=== PATIENT | female | born 1980 | race Caucasian/White ===

== ENCOUNTER 2017-01-19 07:19 | Emergency (ER) | payer OTHER ==
[2017-01-19 07:25] VITALS: TEMP 97.9
[2017-01-19] MEDS ORDERED: SODIUM CHLORIDE 0.9% 1,000 ML IV STA (07:57)
--- NOTE | 2017-01-19 08:12 | ED ---
Abdominal Pain HPI - General Chief Complaint: Abdominal Pain Stated Complaint: poss appendix issue Time Seen by Provider: 01/19/17 07:57 Source: patient, RN notes reviewed Mode of arrival: ambulatory Limitations: no limitations - History of Present Illness Initial Comments: 36-year-old female presents emergency Department chief complaint of right-sided abdominal pain. Patient states pain started last night and has not improved today. Patient states that it's from her right lower to right upper region. Patient had a prior cholecystectomy approximately 3-4 years ago. Patient denies any known fever and denies any chills. Patient states she has some nausea but denies vomiting, diarrhea or constipation. She states her blood sugars have been running within normal range and states that she is on insulin pump. Patient has no chest or shortness of breath denies any dysuria or hematuria. Denies any chance . - Related Data Home Medications Medication Instructions Recorded Confirmed Insulin Glulisine (For Pump) 0.01 units SQ-PUMP CONTINUOUS 01/19/17 01/19/17 [Apidra (For Pump)] Multivitamins, Thera [Multivitamin 1 tab PO DAILY 01/19/17 01/19/17 (formulary)] Allergies Allergy/AdvReac Type Severity Reaction Status Date / Time Sulfa (Sulfonamide Allergy Rash/Hives Verified 01/19/17 07:39 Antibiotics) Review of Systems ROS Statement: Those systems with pertinent positive or pertinent negative responses have been documented in the HPI. ROS Other: All systems not noted in ROS Statement are negative. Past Medical History Past Medical History: Diabetes Mellitus History of Any Multi-Drug Resistant Organisms: MRSA Date of last positivie culture/infection: 2012 MDRO Source:: arm pit Past Surgical History: Cholecystectomy Additional Past Surgical History / Comment(s): tumor removal from left neck, left breast Past Psychological History: No Psychological Hx Reported Smoking Status: Current some day smoker Past Alcohol Use History: Occasional Past Drug Use History: None Reported General Exam Limitations: no limitations General appearance: alert, in no apparent distress Respiratory exam: Present: normal lung sounds bilaterally. Absent: respiratory distress, wheezes, rales, rhonchi, stridor Cardiovascular Exam: Present: regular rate, normal rhythm, normal heart sounds. Absent: systolic murmur, diastolic murmur, rubs, gallop, clicks GI/Abdominal exam: Present: soft, tenderness (Moderate right-sided abdominal tenderness upper and lower with mild suprapubic tenderness), normal bowel sounds. Absent: distended, guarding, rebound, rigid Back exam: Absent: CVA tenderness (R), CVA tenderness (L) Neurological exam: Present: alert, oriented X3, CN II-XII intact Skin exam: Present: warm, dry, intact, normal color. Absent: rash Course Vital Signs 01/19/17 07:20 Temperature 97.9 F Pulse Rate 78 Respiratory 18 Rate Blood Pressure 140/71 O2 Sat by Pulse 99 Oximetry Medical Decision Making - Medical Decision Making 36-year-old female presents emergency Department for abdominal pain. Patient lab work within normal limits. Patient does have evidence of recent rupture or abscess along with hepatic hemangiomas. Patient will be discharged at this time. Patient will follow-up with primary care physician for hepatic MRI as suggested by radiologist. Return parameters were discussed. - Lab Data Result diagrams: 01/19/17 08:10 01/19/17 08:10 Lab Results 01/19/17 01/19/17 01/19/17 Range/Units 08:10 08:10 08:10 WBC 8.3 (3.8-10.6) k/uL RBC 4.83 (3.80-5.40) m/uL Hgb 15.1 (11.4-16.0) gm/dL Hct 43.0 (34.0-46.0) % MCV 88.9 (80.0-100.0) fL MCH 31.2 (25.0-35.0) pg MCHC 35.1 (31.0-37.0) g/dL RDW 12.6 (11.5-15.5) % Plt Count 233 (150-450) k/uL Neutrophils % 65 % Lymphocytes % 21 % Monocytes % 6 % Eosinophils % 5 % Basophils % 1 % Neutrophils # 5.4 (1.3-7.7) k/uL Lymphocytes # 1.8 (1.0-4.8) k/uL Monocytes # 0.5 (0-1.0) k/uL Eosinophils # 0.4 (0-0.7) k/uL Basophils # 0.0 (0-0.2) k/uL Sodium 138 (137-145) mmol/L Potassium 4.0 (3.5-5.1) mmol/L Chloride 104 (98-107) mmol/L Carbon Dioxide 26 (22-30) mmol/L Anion Gap 8 mmol/L BUN 12 (7-17) mg/dL Creatinine 0.67 (0.52-1.04) mg/dL Est GFR (MDRD) Af Amer >60 (>60 ml/min/1.73 sqM) Est GFR (MDRD) Non-Af >60 (>60 ml/min/1.73 sqM) Glucose 281 H (74-99) mg/dL Calcium 9.4 (8.4-10.2) mg/dL Total Bilirubin 0.8 (0.2-1.3) mg/dL AST 16 (14-36) U/L ALT 21 (9-52) U/L Alkaline Phosphatase 67 (38-126) U/L Total Protein 7.1 (6.3-8.2) g/dL Albumin 4.1 (3.5-5.0) g/dL Amylase 44 (30-110) U/L Lipase 55 (23-300) U/L Urine Color Urine Appearance (Clear) Urine pH (5.0-8.0) Ur Specific Burnham (1.001-1.035) Urine Protein (Negative) Urine Glucose (UA) (Negative) Urine Ketones (Negative) Urine Blood (Negative) Urine Nitrite (Negative) Urine Bilirubin (Negative) Urine Urobilinogen (<2.0) mg/dL Ur Leukocyte Esterase (Negative) Urine WBC (0-5) /hpf Ur Squamous Epith Cells (0-4) /hpf Urine Mucus (None) /hpf Urine HCG, Qual Not Detected (Not Detectd) 01/19/17 Range/Units 08:10 WBC (3.8-10.6) k/uL RBC (3.80-5.40) m/uL Hgb (11.4-16.0) gm/dL Hct (34.0-46.0) % MCV (80.0-100.0) fL MCH (25.0-35.0) pg MCHC (31.0-37.0) g/dL RDW (11.5-15.5) % Plt Count (150-450) k/uL Neutrophils % % Lymphocytes % % Monocytes % % Eosinophils % % Basophils % % Neutrophils # (1.3-7.7) k/uL Lymphocytes # (1.0-4.8) k/uL Monocytes # (0-1.0) k/uL Eosinophils # (0-0.7) k/uL Basophils # (0-0.2) k/uL Sodium (137-145) mmol/L Potassium (3.5-5.1) mmol/L Chloride (98-107) mmol/L Carbon Dioxide (22-30) mmol/L Anion Gap mmol/L BUN (7-17) mg/dL Creatinine (0.52-1.04) mg/dL Est GFR (MDRD) Af Amer (>60 ml/min/1.73 sqM) Est GFR (MDRD) Non-Af (>60 ml/min/1.73 sqM) Glucose (74-99) mg/dL Calcium (8.4-10.2) mg/dL Total Bilirubin (0.2-1.3) mg/dL AST (14-36) U/L ALT (9-52) U/L Alkaline Phosphatase (38-126) U/L Total Protein (6.3-8.2) g/dL Albumin (3.5-5.0) g/dL Amylase (30-110) U/L Lipase (23-300) U/L Urine Color Yellow Urine Appearance Clear (Clear) Urine pH 5.5 (5.0-8.0) Ur Specific Burnham 1.018 (1.001-1.035) Urine Protein Negative (Negative) Urine Glucose (UA) 4+ H (Negative) Urine Ketones Trace H (Negative) Urine Blood Negative (Negative) Urine Nitrite Negative (Negative) Urine Bilirubin Negative (Negative) Urine Urobilinogen <2.0 (<2.0) mg/dL Ur Leukocyte Esterase Small H (Negative) Urine WBC 2 (0-5) /hpf Ur Squamous Epith Cells 6 H (0-4) /hpf Urine Mucus Rare H (None) /hpf Urine HCG, Qual (Not Detectd) Disposition Clinical Impression: Abdominal pain, Ruptured ovarian cyst, Hepatic cyst Disposition: HOME SELF-CARE Condition: Stable Instructions: Ovarian Cyst (ED) Additional Instructions: Please return to the Emergency Department if symptoms worsen or any other concerns. Referrals: Cheko Nino Jr, [Primary Care Provider] - 1-2 days Time of Disposition: 09:59
[2017-01-19 08:26] LABS: Basophils % (A) 1 %; CH 30.8; CHCM 34.7; Eosinophils # (A) 0.4 k/uL (0-0.7); Eosinophils % (A) 5 %; HDW 2.23; HGB 15.1 gm/dL (11.4-16.0); Luc # (Auto) 0.18; Luc % (Auto) 2; Lymphocytes # (A) 1.8 k/uL (1.0-4.8); Lymphocytes % (A) 21 %; MCH 31.2 pg (25.0-35.0); MCHC 35.1 g/dL (31.0-37.0); MCV 88.9 fL (80.0-100.0); Mean Platelet Volume 8.1; Monocytes # (A) 0.5 k/uL (0-1.0); Monocytes % (A) 6 %; Neutrophils # (A) 5.4 k/uL (1.3-7.7); Neutrophils % (A) 65 %; RBC 4.83 m/uL (3.80-5.40); RDW 12.6 % (11.5-15.5); WBC 8.3 k/uL (3.8-10.6); WBC (Perox) 8.55
[2017-01-19 08:40] LABS: Appearance,Urine Clear (Clear); Bilirubin,Urine Negative (Negative); Glucose,Urine (UA) 4+ (Negative); Ketones,Urine Trace (Negative); Leukocyte Esterase,Urine Small (Negative); Mucus,Urine Rare /hpf; Nitrite,Urine Negative (Negative); PH, Urine 5.5 (5.0-8.0); Particle Count 2158; Protein,Urine Negative (Negative); Specific Gravity,Urine 1.018 (1.001-1.035); Squamous Epithelial Cell,Urine 6 /hpf (0-4); UA Billing (MACRO vs. MICRO) MICRO; Urobilinogen,Urine <2.0 mg/dL (<2.0); WBC,Urine 2 /hpf (0-5)
[2017-01-19 08:52] LABS: ALT 21 U/L (9-52); AST 16 U/L (14-36); Alkaline Phosphatase 67 U/L (38-126); Amylase 44 U/L (30-110); Anion Gap 8 mmol/L; Blood Urea Nitrogen 12 mg/dL (7-17); Calcium 9.4 mg/dL (8.4-10.2); Carbon Dioxide 26 mmol/L (22-30); Chloride 104 mmol/L (98-107); Glucose 281 mg/dL (74-99); Non-African American GFR(MDRD) >60 (>60 ml/min/1.73 sqM); Sodium 138 mmol/L (137-145); Total Bilirubin 0.8 mg/dL (0.2-1.3); Total Protein 7.1 g/dL (6.3-8.2)
--- NOTE | 2017-01-19 09:00 | XR ---
EXAMINATION TYPE: XR KUB DATE OF EXAM: 01/19/2017 CLINICAL HISTORY: Right-sided abdominal pain. TECHNIQUE: 2 upright KUB images of the abdomen are obtained COMPARISON: Abdominal x-ray September 02, 2013. FINDINGS: Scattered gas is seen in non-distended small bowel loops. Gas and fecal material is seen in non-distended colon. Cholecystectomy clips are redemonstrated. 2 round densities right upper pelvi s are redemonstrated may reflect benign bone islands localized to the iliac bone. No pneumoperitoneum is present. The lung bases are clear. IMPRESSION: Overall nonobstructive bowel gas pattern. No significant change from prior.
[2017-01-19] MEDS ORDERED: RX INFO: IV CONTRAST WAS GIVEN 1 EACH MISC MISCELLANE PRN (09:08)
--- NOTE | 2017-01-19 09:55 | CT ---
EXAMINATION TYPE: CT abdomen pelvis w con DATE OF EXAM: 01/19/2017 COMPARISON: Plain film same date HISTORY: Patient complains of right flank pain and nausea. CT DLP: 1212 mGycm Automated exposure control for dose reduction was used. TECHNIQUE: Helical acquisition of images from the lung bases through the pelvis have been completed. CONTRAST: Performed without Oral Contrast and with IV Contrast, patient injected with 100 mL of Omnipaque 300. FINDINGS: LUNG BASES: Dependent atelectatic changes are present. There is no pleural or pericardial effusion. AORTA: No significant abnormality is appreciated. LIVER/GB: There is a hypodensity measuring 1.5 cm within the right lobe of the liver on axial image 1 5, there may be some nodular enhancement on delayed images. Within the more inferior right lobe there is a dense focus measuring approximately 14 mm on axial image 27 which is not as well seen on delaye d images. The liver shows low attenuation. The liver is enlarged. Patient is post cholecystectomy. PANCREAS: No significant abnormality is seen. SPLEEN: No significant abnormality is seen. ADRENALS: The left adrenal gland shows a low dense nodule measuring approximately 15 mm in size. Righ t adrenal gland is unremarkable. KIDNEYS: There is a large 6 focus at the lower pole measuring approximately 6.7 cm. Right kidney some what malrotated. No hydronephrosis bilaterally. REPRODUCTIVE ORGANS: There is likely been involution of a follicle in the right ovary, enhancement is noted suggesting a ruptured follicle, there is some free fluid in the cul-de-sac. BOWEL: No significant abnormality is seen. Appendix is normal. FREE AIR: No Free Air visible. ASCITES: None visible. PELVIC ADENOPATHY: None visualized. RETROPERITONEAL ADENOPATHY: No Retroperitoneal Adenopathy visible. URINARY BLADDER: No significant abnormality is seen. OSSEOUS STRUCTURES: No significant abnormality is seen. IMPRESSION: RECENTLY RUPTURED OVARIAN CYST IS SUSPECTED. POSTOP CHANGES. INDETERMINATE LESIONS WITHIN THE LIVER M AY REPRESENT HEMANGIOMAS, ABDOMINAL MRI MAY BE OF BENEFIT TO ASSESS LIVER LESIONS WELL LEFT ADR ENAL MASS WHICH MAY REPRESENT ADENOMA. Possible fatty infiltration of the liver, hepatomegaly.
[2017-01-19 10:12] VITALS: BP 121/71; PULSE 60; RESP 16
== END 2017-01-19 10:57 | disposition home or self-care (01) ==
LOC: EC 07:19
DX: N83.201 Unspecified ovarian cyst, right side (principal); E11.9 Type 2 diabetes mellitus without complications; F17.200 Nicotine dependence, unspecified, uncomplicated; Z90.49 Acquired absence of other specified parts of digestive tract; Z88.2 Allergy status to sulfonamides; Z79.4 Long term (current) use of insulin; Z79.899 Other long term (current) drug therapy
CPT/HCPCS: 99284; 96360; 36415; 80053; 82150; 83690; 85025; 81001; 81025; 74000; 74177; Q9967

== ENCOUNTER → 2017-02-06 | Outpatient (CLI) | payer OTHER ==
--- NOTE | 2017-02-06 09:53 | MR ---
EXAMINATION TYPE: MR abdomen wo/w con DATE OF EXAM: 02/06/2017 COMPARISON: CT abdomen and pelvis January 19, 2017 HISTORY: Right flank pain and nausea before CT done, Abn CT in pacs with hepatomegaly and adrenal nod ule per order. CONTRAST: Standard multiplanar, multisequence MRI departmental protocol utilizing 16 mL intravenous MultiHance gadolinium contrast. FINDINGS: LIVER: Liver is felt normal in size to me. Corresponding to lesion of concern on CT in the right hepa tic lobe there is round 1.1 cm lesion of T1 hypointensity and T2 hyperintensity that shows some perip heral nodular enhancement with progressive centripetal filling, imaging characteristics are consisten t with hemangioma. Remainder of liver shows no additional solid or cystic mass. No suspicious or intr ahepatic or extrahepatic ductal dilatation is seen. Gallbladder is surgically absent. ADRENALS: Corresponding to CT there is 1.6 x 1.1 cm left adrenal nodule or mass that shows signal inder pout on in and out of phase image 76 consistent with benign lipid rich adenoma. Right adrenal gland i s normal in size. OTHER: Lung bases are grossly clear, there is no pleural or pericardial effusion seen. There is roug hly 8 cm simple appearing exophytic cyst lower pole level right kidney redemonstrated along posterior aspect. The pancreas and spleen are normal in size and appear grossly unremarkable. There is no susp icious small or large bowel dilatation. There is no concerning abdominal fluid collection. There is n o suspicious abdominal adenopathy. Visualized osseous structures are intact. A few small scattered os seous hemangiomas are noted. IMPRESSION: 1. The 1.6 cm left adrenal mass has MRI imaging characteristics consistent with benign lipid rich elisabeth noma. 2. The right liver lesion measures approximately 1.1 cm on MRI and has MRI imaging characteristics co nsistent with benign hemangioma.
== END | disposition home or self-care (01) ==
LOC: RADMRIMAIN 08:09
PROVIDERS: ATTEND Nurse Practitioner Women's Health
DX: E27.8 Other specified disorders of adrenal gland (principal); R16.0 Hepatomegaly, not elsewhere classified; K76.9 Liver disease, unspecified
CPT/HCPCS: 74183; A9577

== ENCOUNTER 2017-04-22 11:40 | Emergency (ER) | payer BC, OTHER ==
[2017-04-22 11:50] VITALS: TEMP 97.8
[2017-04-22] MEDS ORDERED: RX INFO: IV CONTRAST WAS GIVEN 1 EACH MISC MISCELLANE PRN (12:09)
[2017-04-22] MEDS ORDERED: CLINDAMYCIN 600 MG in DEXTROSE 5% IN WATER 50 ML IVPB STA ×2 (12:10)
[2017-04-22 12:48] LABS: Basophils # (A) 0.1 k/uL (0-0.2); Basophils % (A) 1 %; CH 31.7; CHCM 34.9; Eosinophils # (A) 0.3 k/uL (0-0.7); Eosinophils % (A) 3 %; HDW 2.21; HGB 14.8 gm/dL (11.4-16.0); Luc # (Auto) 0.16; Luc % (Auto) 2; Lymphocytes # (A) 1.9 k/uL (1.0-4.8); Lymphocytes % (A) 20 %; MCH 30.8 pg (25.0-35.0); MCHC 33.7 g/dL (31.0-37.0); MCV 91.3 fL (80.0-100.0); Mean Platelet Volume 8.6; Monocytes # (A) 0.5 k/uL (0-1.0); Monocytes % (A) 6 %; Neutrophils # (A) 6.5 k/uL (1.3-7.7); Neutrophils % (A) 69 %; RBC 4.82 m/uL (3.80-5.40); RDW 13.2 % (11.5-15.5); WBC 9.4 k/uL (3.8-10.6); WBC (Perox) 9.04
--- NOTE | 2017-04-22 12:52 | ED ---
Skin/Abscess/FB HPI - General Chief complaint: Skin/Abscess/Foreign Body Stated complaint: POSS INFECTION ON NOSE Time Seen by Provider: 04/22/17 11:55 Source: patient, RN notes reviewed, old records reviewed Mode of arrival: ambulatory Limitations: no limitations - History of Present Illness Initial comments: Is a 36-year-old type 1 diabetic presents emergency Department with nasal septum pain. Patient reports on Thursday she had a pimple on the tip of herpatient reports she was able to squeeze a lot of pus out of it. She was seen [facility] and was placed on Keflex. Patient put she's taken 3 doses of it. Patient reports that now she has some swelling and irritation over her right cheek and right upper lip. Patient reports that she's had fevers but has not had any fevers since last night. Patient states she's been taking Motrin for pain. - Related Data Home Medications Medication Instructions Recorded Confirmed Insulin Glulisine (For Pump) 0.01 units SQ-PUMP CONTINUOUS 01/19/17 04/22/17 [Apidra (For Pump)] Multivitamins, Thera [Multivitamin 1 tab PO DAILY 01/19/17 04/22/17 (formulary)] Cephalexin [Keflex] 500 mg PO TID 04/22/17 04/22/17 Ibuprofen [Motrin] 800 mg PO Q8H PRN 04/22/17 04/22/17 Previous Rx's Medication Instructions Recorded Clindamycin [Cleocin] 300 mg PO QID 10 Days 04/22/17 Allergies Allergy/AdvReac Type Severity Reaction Status Date / Time Sulfa (Sulfonamide Allergy Rash/Hives Verified 04/22/17 12:13 Antibiotics) Review of Systems ROS Statement: Those systems with pertinent positive or pertinent negative responses have been documented in the HPI. ROS Other: All systems not noted in ROS Statement are negative. Past Medical History Past Medical History: Diabetes Mellitus Additional Past Medical History / Comment(s): mass on kidney, liver, and adrenal gland = all benign, ovarian cyst History of Any Multi-Drug Resistant Organisms: MRSA Date of last positivie culture/infection: 2012 MDRO Source:: arm pit Past Surgical History: Cholecystectomy Additional Past Surgical History / Comment(s): tumor removal from left neck, left breast lumpectomy Past Psychological History: No Psychological Hx Reported Smoking Status: Current every day smoker Past Alcohol Use History: Occasional Past Drug Use History: None Reported General Exam - General Exam Comments Initial Comments: 36-year-old female. No acute distress. Limitations: no limitations General appearance: alert, in no apparent distress Head exam: Present: atraumatic, normocephalic, normal inspection Eye exam: Present: normal appearance, PERRL, EOMI. Absent: scleral icterus, conjunctival injection, periorbital swelling ENT exam: Present: mucous membranes moist, other (She has erythema and fluctuance over the nasal septum. Evidence of a scab from where she had it open and draining already.). Absent: normal exam Neck exam: Present: normal inspection. Absent: tenderness, meningismus, lymphadenopathy Respiratory exam: Present: normal lung sounds bilaterally. Absent: respiratory distress, wheezes, rales, rhonchi, stridor Cardiovascular Exam: Present: regular rate, normal rhythm, normal heart sounds. Absent: systolic murmur, diastolic murmur, rubs, gallop, clicks GI/Abdominal exam: Present: soft, normal bowel sounds. Absent: distended, tenderness, guarding, rebound, rigid Extremities exam: Present: normal inspection, full ROM, normal capillary refill. Absent: tenderness, pedal edema, joint swelling, calf tenderness Back exam: Present: normal inspection Neurological exam: Present: alert, oriented X3, CN II-XII intact Course Vital Signs 04/22/17 04/22/17 04/22/17 11:45 13:09 14:36 Temperature 97.8 F Pulse Rate 78 61 64 Respiratory 18 18 18 Rate Blood Pressure 134/86 128/79 124/75 O2 Sat by Pulse 99 97 99 Oximetry Medical Decision Making - Medical Decision Making 36-year-old female with a history of type 1 diabetes presents emergency Department with 3 days of increased nasal septum pain. Patient was started on Keflex and did have some drainage yesterday. She reports that her chest But now her swelling and pain is continue to got worse. Patient's lab work was reviewed. No evidence of leukocytosis. She did have elevated blood sugar she ingested this appropriately on her insulin pump. Patient was given IV Toradol. CT facial bones was reviewed. Evidence of a 1.4 cm abscess within the right nasal abdomen. Discussed case with Dr. Shelton. He also examined the patient. We 're currently contacting Dr. Turner for further evaluation. Dr. Turner reports that he will see the patient at 5:00 this afternoon. Patient will be discharged with a prescription for clindamycin and instructed to go there at 5:00. Patient's history plan will comply. - Lab Data Result diagrams: 04/22/17 12:30 04/22/17 12:30 Lab Results 04/22/17 04/22/17 Range/Units 12:30 12:30 WBC 9.4 (3.8-10.6) k/uL RBC 4.82 (3.80-5.40) m/uL Hgb 14.8 (11.4-16.0) gm/dL Hct 44.0 (34.0-46.0) % MCV 91.3 (80.0-100.0) fL MCH 30.8 (25.0-35.0) pg MCHC 33.7 (31.0-37.0) g/dL RDW 13.2 (11.5-15.5) % Plt Count 264 (150-450) k/uL Neutrophils % 69 % Lymphocytes % 20 % Monocytes % 6 % Eosinophils % 3 % Basophils % 1 % Neutrophils # 6.5 (1.3-7.7) k/uL Lymphocytes # 1.9 (1.0-4.8) k/uL Monocytes # 0.5 (0-1.0) k/uL Eosinophils # 0.3 (0-0.7) k/uL Basophils # 0.1 (0-0.2) k/uL Sodium 136 L (137-145) mmol/L Potassium 4.2 (3.5-5.1) mmol/L Chloride 105 (98-107) mmol/L Carbon Dioxide 23 (22-30) mmol/L Anion Gap 8 mmol/L BUN 10 (7-17) mg/dL Creatinine 0.62 (0.52-1.04) mg/dL Est GFR (MDRD) Af Amer >60 (>60 ml/min/1.73 sqM) Est GFR (MDRD) Non-Af >60 (>60 ml/min/1.73 sqM) Glucose 220 H (74-99) mg/dL Calcium 9.1 (8.4-10.2) mg/dL - Radiology Data Radiology results: report reviewed Sinuses are clear osteopenia no complexes pain bilaterally. Local phlegmon or abscess within the subcu tissues inferior to the nostrils. Disposition Clinical Impression: Nasal septal abscess Disposition: HOME SELF-CARE Condition: Good Instructions: Abscess (ED) Additional Instructions: Patient advised to follow-up with Dr. Turner had an appointment at 5:00 today. Take antibiotics as prescribed. Do not miss your appointment with Dr. Turner. Prescriptions: Clindamycin [Cleocin] 300 mg PO QID 10 Days Referrals: Cheko Nino Jr, DO [Primary Care Provider] - 1-2 days Time of Disposition: 15:02
[2017-04-22 12:54] LABS: Anion Gap 8 mmol/L; Blood Urea Nitrogen 10 mg/dL (7-17); Calcium 9.1 mg/dL (8.4-10.2); Carbon Dioxide 23 mmol/L (22-30); Chloride 105 mmol/L (98-107); Glucose 220 mg/dL (74-99); Non-African American GFR(MDRD) >60 (>60 ml/min/1.73 sqM); Potassium 4.2 mmol/L (3.5-5.1); Sodium 136 mmol/L (137-145)
--- NOTE | 2017-04-22 13:50 | CT ---
EXAMINATION TYPE: CT facial bones w con DATE OF EXAM: 04/22/2017 COMPARISON: NONE HISTORY: Possible infection of nose CT DLP: 461.6 mGycm Automated exposure control for dose reduction was used. CONTRAST: CT scan of the facial bones is performed with IV Contrast, patient injected with 100 mL of Omnipaque 300. TECHNIQUE: CT scan of the sinuses is performed without contrast, axial images are obtained, coronal r eformatted images are also reviewed. FINDINGS: The paranasal sinuses including the frontal, ethmoid, sphenoid, and maxillary sinuses bila terally are well-aerated without abnormal opacification. The ostiomeatal complex is patent bilateral ly on the coronal images. Visualized portion of mastoid air laura bullosa present on the right. Cells show no abnormal opacifi cation. The globes are intact bilaterally. At the level of patient's symptomatology there is focal low attenuation present compatible with local ized abscess or phlegmon measuring approximately 1.4 cm x 4 mm. There is local soft tissue swelling. IMPRESSION: The sinuses are clear and the ostiomeatal complex is patent bilaterally. Local phlegmon or abscess within the subcutaneous tissues inferior to the nostrils.
[2017-04-22] MEDS ORDERED: KETOROLAC 30 MG/ML 1 ML VIAL IVP STA (14:11)
[2017-04-22 15:19] VITALS: BP 128/82; PULSE 75; RESP 16
== END 2017-04-22 15:19 | disposition home or self-care (01) ==
LOC: EC 11:40
DX: J34.0 Abscess, furuncle and carbuncle of nose (principal); E11.9 Type 2 diabetes mellitus without complications; F17.200 Nicotine dependence, unspecified, uncomplicated; Z86.14 Personal history of Methicillin resistant Staphylococcus aureus infection; Z79.4 Long term (current) use of insulin; Z79.899 Other long term (current) drug therapy; Z88.2 Allergy status to sulfonamides
CPT/HCPCS: 99284; 96365; 96375; 36415; 80048; 85025; 70487; J1885; Q9967; 96374

== ENCOUNTER 2017-11-26 07:42 | Emergency (ER) | payer BC, OTHER ==
[2017-11-26 07:50] VITALS: RESP 20; TEMP 98
--- NOTE | 2017-11-26 08:34 | ED ---
General Adult HPI - General Chief complaint: Skin/Abscess/Foreign Body Stated complaint: poss MRSA on head Time Seen by Provider: 11/26/17 08:22 Source: patient, RN notes reviewed Mode of arrival: ambulatory Limitations: no limitations - History of Present Illness Initial comments: Patient 37-year-old female presenting to the emergency room today with chief complaint of abscess to the left side of the scalp. Patient states this started 4 days ago. States come or tender and painful. Patient denies any drainage. Does admit to history of MRSA. She woke up with another spot to left side of her chin. Patient denies any recent fever, chills, shortness of breath, chest pain, back pain, abdominal pain, nausea or vomiting, numbness or tingling, dysuria or hematuria, constipation or diarrhea, headaches or visual changes, or any other complaints. - Related Data Home Medications Medication Instructions Recorded Confirmed Insulin Glulisine (For Pump) 0.01 units SQ-PUMP CONTINUOUS 01/19/17 11/26/17 [Apidra (For Pump)] Multivitamins, Thera [Multivitamin 1 tab PO DAILY 01/19/17 11/26/17 (formulary)] L.acidoph,Paracasei, B.lactis 1 cap PO DAILY 11/26/17 11/26/17 [Probiotic] Previous Rx's Medication Instructions Recorded Clindamycin HCl [Cleocin] 300 mg PO Q6HR 10 Days cap 11/26/17 Mupirocin 2% Oint [Bactroban Oint] 1 applic TOPICAL TID #1 gm 11/26/17 Allergies Allergy/AdvReac Type Severity Reaction Status Date / Time doxycycline Allergy Unknown Verified 11/26/17 08:03 Sulfa (Sulfonamide Allergy Rash/Hives Verified 11/26/17 08:03 Antibiotics) Review of Systems ROS Statement: Those systems with pertinent positive or pertinent negative responses have been documented in the HPI. ROS Other: All systems not noted in ROS Statement are negative. Past Medical History Past Medical History: Diabetes Mellitus Additional Past Medical History / Comment(s): mass on kidney, liver, and adrenal gland = all benign, ovarian cyst History of Any Multi-Drug Resistant Organisms: MRSA Date of last positivie culture/infection: 08/14/17 MDRO Source:: face Past Surgical History: Cholecystectomy Additional Past Surgical History / Comment(s): tumor removal from left neck, left breast lumpectomy Past Anesthesia/Blood Transfusion Reactions: No Reported Reaction Past Psychological History: No Psychological Hx Reported Smoking Status: Current every day smoker Past Alcohol Use History: Occasional Past Drug Use History: None Reported - Past Family History Father Family Medical History: Cancer Additional Family Medical History / Comment(s): colon cancer Mother Family Medical History: No Reported History General Exam - General Exam Comments Initial Comments: General: The patient is awake and alert, in no distress, and does not appear acutely ill. Eye: Pupils are equal, round and reactive to light, extra-ocular movements are intact. No nystagmus. There is normal conjunctiva bilaterally. No signs of icterus. Ears, nose, mouth and throat: There are moist mucous membranes and no oral lesions. Neck: The neck is supple, there is no tenderness or JVD. Musculoskeletal: Normal ROM, no tenderness. Strength 5/5. Sensation intact. Pulses equal bilaterally 2+. Neurological: A&O x 3. CN II-XII intact, There are no obvious motor or sensory deficits. Coordination appears grossly intact. Speech is normal. Skin: Patient does have small abscess to the left side of the scalp parietal area. There is an ulcerated area centrally. No fluctuant area. Measures approximately centimeter across. There is redness of left-sided chin no signs of abscess formation at this time. Psychiatric: Cooperative, appropriate mood & affect, normal judgment. Limitations: no limitations Course Vital Signs 11/26/17 07:49 Temperature 98.0 F Pulse Rate 89 Respiratory 20 Rate Blood Pressure 136/80 O2 Sat by Pulse 99 Oximetry Medical Decision Making - Medical Decision Making Patient has history of MRSA will be started on clindamycin due to ALLERGIES. Advised use warm compresses to the affected area along with a topical antibiotic. Disposition Clinical Impression: Abscess Disposition: HOME SELF-CARE Condition: Good Instructions: Abscess (ED) Additional Instructions: Please use medication as discussed. Please follow-up with family doctor in the next 2 days of symptoms have not improved. Please return to emergency room if the symptoms increase or worsen or for any other concerns. Prescriptions: Clindamycin HCl [Cleocin] 300 mg PO Q6HR 10 Days cap Mupirocin 2% Oint [Bactroban Oint] 1 applic TOPICAL TID #1 gm Referrals: Cheko Nino Jr, [Primary Care Provider] - 1-2 days Time of Disposition: 08:33
[2017-11-26 08:45] VITALS: BP 122/78; PULSE 78
== END 2017-11-26 08:45 | disposition home or self-care (01) ==
LOC: EC 07:42
DX: L02.811 Cutaneous abscess of head [any part, except face] (principal); E11.9 Type 2 diabetes mellitus without complications; F17.200 Nicotine dependence, unspecified, uncomplicated; Z86.14 Personal history of Methicillin resistant Staphylococcus aureus infection; Z79.4 Long term (current) use of insulin; Z88.1 Allergy status to other antibiotic agents; Z88.2 Allergy status to sulfonamides
CPT/HCPCS: 99283

== ENCOUNTER → 2017-12-09 | Outpatient (CLI) | payer OTHER ==
--- NOTE | 2017-12-09 12:28 | MM ---
Reason for exam: clinical finding. Last mammogram was performed 7 years and 10 months ago. History: Benign US left guided VAD of the left breast, June 07, 2009. Excisional biopsy of the left breast, March 2009. Taking hormonal contraceptives for 12 years beginning at age 16. Physical Findings: Nurse Summary: 1cm nodule in the left breast at 1 o'clock (nurse logan). MG Diagnostic Mammo w CAD BERTHA Bilateral CC and MLO view(s) were taken. Prior study comparison: February 19, 2010, bilateral diagnostic digital mammog. December 07, 2009, left breast digital mammogram. The breast tissue is extremely dense which could obscure a lesion on mammography. Previous mammotome biopsy in the left breast. These results were verbally communicated with the patient and result sheet given to the patient on 12/09/17. ASSESSMENT: Incomplete: need additional imaging evaluation, BI-RAD 0 RECOMMENDATION: Ultrasound of the left breast.
--- NOTE | 2017-12-09 12:30 | USB ---
Reason for exam: additional evaluation requested from abnormal screening. History: Benign US left guided VAD of the left breast, June 07, 2009. Excisional biopsy of the left breast, March 2009. Taking hormonal contraceptives for 12 years beginning at age 16. US Breast Limited LT Left breast ultrasound demonstrates a 0.6 x 0.5 x 0.4cm solid lesion at 1 o'clock, may be secondary to scar from previous biopsy. These results were verbally communicated with the patient and result sheet given to the patient on 12/09/17. ASSESSMENT: Incomplete: need additional imaging evaluation, BI-RAD 0 RECOMMENDATION: Breast MRI of both breasts.
== END | disposition home or self-care (01) ==
LOC: RADMAMWWP 09:25
PROVIDERS: ATTEND Family Medicine
DX: N63.20 Unspecified lump in the left breast, unspecified quadrant (principal); R92.8 Other abnormal and inconclusive findings on diagnostic imaging of breast
CPT/HCPCS: 77066

== ENCOUNTER 2018-03-23 07:54 | Emergency (ER) | payer OTHER ==
[2018-03-23] MEDS ORDERED: SODIUM CHLORIDE 0.9% 1,000 ML IV STA (08:12)
[2018-03-23] MEDS ORDERED: IPRATROPIUM-ALBUTEROL 3 ML NEB INHALATION STA ×2 (08:12→10:31)
--- NOTE | 2018-03-23 08:21 | ED ---
URI HPI - General Chief Complaint: Upper Respiratory Infection Stated Complaint: Cough/sob Time Seen by Provider: 03/23/18 08:00 Source: patient, RN notes reviewed Mode of arrival: ambulatory Limitations: no limitations - History of Present Illness Initial Comments: This is a 37-year-old female history of bronchitis and pneumonia who states she had the onset of a upper respiratory infection last Thursday which is 4 days ago states it has not progressed into a cough with shortness of breath exertional dyspnea. She denies any chest pain she states she had congested sinuses and some rhinorrhea no sore throat or earaches. No chest pain reported. No overt phlegm which she coughs. He does admit that she is a smoker but does not smoke very much. No other modifying factors at this time she does deny any chance of . MD Complaint: cough, nasal congestion, other - Related Data Home Medications Medication Instructions Recorded Confirmed Multivitamins, Thera [Multivitamin 1 tab PO DAILY 01/19/17 03/23/18 (formulary)] Insulin Glargine [Lantus] 28 unit SQ DAILY 03/23/18 03/23/18 Insulin Glulisine [Apidra] See Protocol SQ ACHS PRN 03/23/18 03/23/18 Previous Rx's Medication Instructions Recorded Albuterol Inhaler [Ventolin Hfa 2 puff INHALATION Q6HR PRN #1 03/23/18 Inhaler] inhaler predniSONE 20 mg PO BID #10 tab 03/23/18 Allergies Allergy/AdvReac Type Severity Reaction Status Date / Time doxycycline Allergy Rash/Hives Verified 03/23/18 08:45 Sulfa (Sulfonamide Allergy Rash/Hives Verified 03/23/18 08:45 Antibiotics) Review of Systems ROS Statement: Those systems with pertinent positive or pertinent negative responses have been documented in the HPI. ROS Other: All systems not noted in ROS Statement are negative. 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, ovarian cyst History of Any Multi-Drug Resistant Organisms: MRSA Date of last positivie culture/infection: 08/14/17 MDRO Source:: face Past Surgical History: Cholecystectomy Additional Past Surgical History / Comment(s): tumor removal from left neck, left breast lumpectomy Past Anesthesia/Blood Transfusion Reactions: No Reported Reaction Past Psychological History: No Psychological Hx Reported Smoking Status: Current every day smoker Past Alcohol Use History: Occasional Past Drug Use History: None Reported - Past Family History Father Family Medical History: Cancer Additional Family Medical History / Comment(s): colon cancer Mother Family Medical History: No Reported History General Exam - General Exam Comments Initial Comments: This is a well-developed well-nourished awake alert oriented 3 female she does have an audible cough with wheezing. Limitations: no limitations General appearance: alert, anxious, in distress Head exam: Present: atraumatic, normocephalic, normal inspection Eye exam: Present: normal appearance, PERRL, EOMI. Absent: scleral icterus, conjunctival injection, periorbital swelling ENT exam: Present: normal exam, mucous membranes moist Neck exam: Present: normal inspection. Absent: tenderness, meningismus, lymphadenopathy Respiratory exam: Present: wheezes, decreased breath sounds. Absent: respiratory distress, rales, rhonchi, stridor Cardiovascular Exam: Present: regular rate, normal rhythm, normal heart sounds. Absent: systolic murmur, diastolic murmur, rubs, gallop, clicks GI/Abdominal exam: Present: soft, normal bowel sounds. Absent: distended, tenderness, guarding, rebound, rigid Extremities exam: Present: normal inspection, full ROM, normal capillary refill. Absent: tenderness, pedal edema, joint swelling, calf tenderness Back exam: Present: normal inspection Neurological exam: Present: alert, oriented X3, CN II-XII intact Psychiatric exam: Present: normal affect, normal mood Skin exam: Present: warm, dry, intact, normal color. Absent: rash Course Vital Signs 03/23/18 03/23/18 03/23/18 07:56 08:28 08:32 Temperature 98.8 F Pulse Rate 75 64 Respiratory 18 22 Rate Blood Pressure 153/97 O2 Sat by Pulse 99 Oximetry 03/23/18 03/23/18 08:38 09:17 Temperature Pulse Rate 79 63 Respiratory 18 Rate Blood Pressure 117/72 O2 Sat by Pulse 98 Oximetry - Reevaluation(s) Reevaluation #1: 03/23/18 10:33 Reevaluation initially revealed minimal improvement back for IV medication the patient is so much improved she has increased aeration slight wheeze. She will receive one more DuoNeb treatment and be discharged on appropriate medication. We did encourage her also to quit smoking total time 3.1 minutes. Medical Decision Making - Lab Data Result diagrams: 03/23/18 08:15 03/23/18 08:15 Lab Results 03/23/18 03/23/18 03/23/18 Range/Units 08:15 08:15 08:15 WBC 8.1 (3.8-10.6) k/uL RBC 4.98 (3.80-5.40) m/uL Hgb 15.0 (11.4-16.0) gm/dL Hct 44.6 (34.0-46.0) % MCV 89.6 (80.0-100.0) fL MCH 30.0 (25.0-35.0) pg MCHC 33.5 (31.0-37.0) g/dL RDW 12.2 (11.5-15.5) % Plt Count 254 (150-450) k/uL Neutrophils % 60 % Lymphocytes % 25 % Monocytes % 6 % Eosinophils % 6 % Basophils % 1 % Neutrophils # 4.8 (1.3-7.7) k/uL Lymphocytes # 2.1 (1.0-4.8) k/uL Monocytes # 0.5 (0-1.0) k/uL Eosinophils # 0.5 (0-0.7) k/uL Basophils # 0.1 (0-0.2) k/uL PT (9.0-12.0) sec INR (<1.2) APTT (22.0-30.0) sec Sodium 137 (137-145) mmol/L Potassium 4.2 (3.5-5.1) mmol/L Chloride 103 (98-107) mmol/L Carbon Dioxide 25 (22-30) mmol/L Anion Gap 9 mmol/L BUN 7 (7-17) mg/dL Creatinine 0.64 (0.52-1.04) mg/dL Est GFR (CKD-EPI)AfAm >90 (>60 ml/min/1.73 sqM) Est GFR (CKD-EPI)NonAf >90 (>60 ml/min/1.73 sqM) Glucose 214 H (74-99) mg/dL Calcium 9.1 (8.4-10.2) mg/dL Magnesium 1.7 (1.6-2.3) mg/dL Total Bilirubin 0.4 (0.2-1.3) mg/dL AST 20 (14-36) U/L ALT 23 (9-52) U/L Alkaline Phosphatase 80 (38-126) U/L Total Creatine Kinase 68 (30-135) U/L CK-MB (CK-2) 0.7 (0.0-2.4) ng/mL CK-MB (CK-2) Rel Index 1.0 Troponin I <0.012 (0.000-0.034) ng/mL Total Protein 6.6 (6.3-8.2) g/dL Albumin 3.9 (3.5-5.0) g/dL 03/23/18 Range/Units 08:15 WBC (3.8-10.6) k/uL RBC (3.80-5.40) m/uL Hgb (11.4-16.0) gm/dL Hct (34.0-46.0) % MCV (80.0-100.0) fL MCH (25.0-35.0) pg MCHC (31.0-37.0) g/dL RDW (11.5-15.5) % Plt Count (150-450) k/uL Neutrophils % % Lymphocytes % % Monocytes % % Eosinophils % % Basophils % % Neutrophils # (1.3-7.7) k/uL Lymphocytes # (1.0-4.8) k/uL Monocytes # (0-1.0) k/uL Eosinophils # (0-0.7) k/uL Basophils # (0-0.2) k/uL PT 9.9 (9.0-12.0) sec INR 1.0 (<1.2) APTT 24.3 (22.0-30.0) sec Sodium (137-145) mmol/L Potassium (3.5-5.1) mmol/L Chloride (98-107) mmol/L Carbon Dioxide (22-30) mmol/L Anion Gap mmol/L BUN (7-17) mg/dL Creatinine (0.52-1.04) mg/dL Est GFR (CKD-EPI)AfAm (>60 ml/min/1.73 sqM) Est GFR (CKD-EPI)NonAf (>60 ml/min/1.73 sqM) Glucose (74-99) mg/dL Calcium (8.4-10.2) mg/dL Magnesium (1.6-2.3) mg/dL Total Bilirubin (0.2-1.3) mg/dL AST (14-36) U/L ALT (9-52) U/L Alkaline Phosphatase (38-126) U/L Total Creatine Kinase (30-135) U/L CK-MB (CK-2) (0.0-2.4) ng/mL CK-MB (CK-2) Rel Index Troponin I (0.000-0.034) ng/mL Total Protein (6.3-8.2) g/dL Albumin (3.5-5.0) g/dL - EKG Data -: EKG Interpreted by Me EKG shows normal: sinus rhythm (Sinus rhythm rate is 71 [place] interval 132 QRS 72 QT since QTC 410/445 right word axis no acute ST-T wave changes some artifact is present) Disposition Clinical Impression: Acute bronchospasm, Bronchitis, Smoking Disposition: HOME SELF-CARE Condition: Good Instructions: Bronchospasm (ED), Acute Bronchitis (ED), How to Stop Smoking (ED ) Prescriptions: Albuterol Inhaler [Ventolin Hfa Inhaler] 2 puff INHALATION Q6HR PRN #1 inhaler PRN Reason: Dyspnea predniSONE 20 mg PO BID #10 tab Is patient prescribed a controlled substance at d/c from ED?: No Referrals: Cheko Nino Jr, [Primary Care Provider] - 1-2 days
[2018-03-23 08:47] LABS: Basophils # (A) 0.1 k/uL (0-0.2); Basophils % (A) 1 %; Eosinophils # (A) 0.5 k/uL (0-0.7); Eosinophils % (A) 6 %; HCT 44.6 % (34.0-46.0); Lymphocytes # (A) 2.1 k/uL (1.0-4.8); Lymphocytes % (A) 25 %; MCHC 33.5 g/dL (31.0-37.0); MCV 89.6 fL (80.0-100.0); Mean Platelet Volume 7.7; Monocytes # (A) 0.5 k/uL (0-1.0); Monocytes % (A) 6 %; Neutrophils # (A) 4.8 k/uL (1.3-7.7); Neutrophils % (A) 60 %; Platelet Count 254 k/uL (150-450); RBC 4.98 m/uL (3.80-5.40); RDW 12.2 % (11.5-15.5); WBC 8.1 k/uL (3.8-10.6)
[2018-03-23 08:49] LABS: ALT 23 U/L (9-52); AST 20 U/L (14-36); Albumin 3.9 g/dL (3.5-5.0); Alkaline Phosphatase 80 U/L (38-126); Anion Gap 9 mmol/L; Blood Urea Nitrogen 7 mg/dL (7-17); Calcium 9.1 mg/dL (8.4-10.2); Carbon Dioxide 25 mmol/L (22-30); Chloride 103 mmol/L (98-107); Glucose 214 mg/dL (74-99); Magnesium 1.7 mg/dL (1.6-2.3); Potassium 4.2 mmol/L (3.5-5.1); Sodium 137 mmol/L (137-145); Total Bilirubin 0.4 mg/dL (0.2-1.3); Total Protein 6.6 g/dL (6.3-8.2)
[2018-03-23 08:52] LABS: Partial Thromboplastin Time 24.3 sec (22.0-30.0); Prothrombin Time 9.9 sec (9.0-12.0)
[2018-03-23] MEDS ORDERED: MAGNESIUM SULFATE-D5W PMX 1 GM in DEXTROSE/WATER 1 100ML.BAG IVPB ONE (08:56)
[2018-03-23] MEDS ORDERED: methylPREDNISolone SOD SUCCI 125 MG/2 ML VIAL IV STA (08:56)
[2018-03-23 09:03] LABS: Creatine Kinase 68 U/L (30-135)
--- NOTE | 2018-03-23 09:11 | XR ---
EXAMINATION TYPE: XR chest 2V DATE OF EXAM: 03/23/2018 COMPARISON: Prior chest 05/09/2015 HISTORY: Difficulty breathing TECHNIQUE: Frontal and lateral views of the chest are obtained. FINDINGS: There is no focal air space opacity, pleural effusion, or pneumothorax seen. The cardiac silhouette size is within normal limits. The osseous structures are intact. There are overlying car diac leads. Surgical clips present in the upper abdomen. IMPRESSION: No acute cardiopulmonary process. Follow-up as indicated.
[2018-03-23 09:19] VITALS: RESP 18
[2018-03-23 10:19] LABS: Creatine Kinase MB 0.7 ng/mL (0.0-2.4); Troponin I <0.012 ng/mL (0.000-0.034)
[2018-03-23 11:13] VITALS: BP 121/63; PULSE 93; TEMP 97.7
== END 2018-03-23 11:07 | disposition home or self-care (01) ==
LOC: EC 07:54
DX: J98.01 Acute bronchospasm (principal); J40 Bronchitis, not specified as acute or chronic; E10.9 Type 1 diabetes mellitus without complications; F17.200 Nicotine dependence, unspecified, uncomplicated; Z86.14 Personal history of Methicillin resistant Staphylococcus aureus infection; Z90.49 Acquired absence of other specified parts of digestive tract; Z79.4 Long term (current) use of insulin; Z88.1 Allergy status to other antibiotic agents; Z88.2 Allergy status to sulfonamides
CPT/HCPCS: 36415; 94640 ×2; 93005; 80053; 82550; 82553; 83735; 84484; 85025; 85610; 85730; 87040; 71046; 99284; 96365; 96375; 96361 ×2; 99406; J2930; J3475

== ENCOUNTER → 2018-08-23 | Outpatient (CLI) | payer OTHER ==
[2018-08-23 18:04] LABS: Albumin 4.1 g/dL (3.80-4.90); Albumin/Globulin Ratio 2.28 (1.20-2.10); Anion Gap 8.9 mmol/L (4.00-12.00); Calcium 9.4 mg/dL (8.7-10.3); Carbon Dioxide 24.1 mmol/L (21.6-31.8); Globulin 1.8 g/dL (1.6-3.3); Potassium 4.1 mmol/L (3.5-5.5); Total Bilirubin 0.4 mg/dL (0.3-1.2); Total Protein 5.9 g/dL (6.2-8.2)
== END ==
LOC: LABWHC1 08:40
PROVIDERS: ATTEND Internal Medicine
DX: E10.65 Type 1 diabetes mellitus with hyperglycemia (principal); E55.9 Vitamin D deficiency, unspecified
CPT/HCPCS: 36415; 80053; 80061; 82043; 82306; 82570; 83036; 84439; 84443

== ENCOUNTER → 2019-04-06 | Outpatient (CLI) | payer OTHER ==
[2019-04-06 19:55] LABS: Hemoglobin A1C 7.9 % (4.0-6.0)
== END | disposition home or self-care (01) ==
LOC: LABWHC1 09:14
PROVIDERS: ATTEND Internal Medicine
DX: E10.65 Type 1 diabetes mellitus with hyperglycemia (principal)
CPT/HCPCS: 36415; 83036

== ENCOUNTER 2019-08-24 12:11 | Emergency (ER) | payer OTHER ==
[2019-08-24] MEDS ORDERED: SODIUM CHLORIDE 0.9% 1,000 ML IV ONE ×3 (12:43→14:42)
[2019-08-24] MEDS ORDERED: ACETAMINOPHEN TAB 500 MG TAB PO STA (12:43)
[2019-08-24 13:22] LABS: Basophils % (A) 1 %; Eosinophils # (A) 0.1 k/uL (0-0.7); Eosinophils % (A) 1 %; Lymphocytes # (A) 1.5 k/uL (1.0-4.8); Lymphocytes % (A) 26 %; MCH 29.9 pg (25.0-35.0); MCHC 33.5 g/dL (31.0-37.0); MCV 89.4 fL (80.0-100.0); Mean Platelet Volume 8.5; Monocytes # (A) 0.5 k/uL (0-1.0); Monocytes % (A) 8 %; Neutrophils # (A) 3.4 k/uL (1.3-7.7); Neutrophils % (A) 61 %; Platelet Count 270 k/uL (150-450); RDW 12.1 % (11.5-15.5); VBG PH 7.4 (7.31-7.41); WBC 5.6 k/uL (3.8-10.6)
[2019-08-24 13:29] LABS: Appearance,Urine Cloudy (Clear); Bilirubin,Urine Negative (Negative); Blood,Urine Negative (Negative); Color,Urine Yellow; Glucose,Urine (UA) Negative (Negative); Ketones,Urine 2+ (Negative); Leukocyte Esterase,Urine Small (Negative); Nitrite,Urine Negative (Negative); PH, Urine 5.5 (5.0-8.0); Protein,Urine Trace (Negative); RBC,Urine 1 /hpf (0-5); Specific Gravity,Urine 1.013 (1.001-1.035); Squamous Epithelial Cell,Urine 3 /hpf (0-4); WBC,Urine 3 /hpf (0-5)
[2019-08-24 13:30] LABS: ALT 21 U/L (4-34); AST 27 U/L (14-36); African American GFR (CKD) >90 (>60 ml/min/1.73 sqM); Albumin 3.6 g/dL (3.5-5.0); Alkaline Phosphatase 93 U/L (38-126); Anion Gap 10 mmol/L; Blood Urea Nitrogen 8 mg/dL (7-17); Carbon Dioxide 17 mmol/L (22-30); Chloride 109 mmol/L (98-107); Glucose 173 mg/dL (74-99); Non-African American GFR(CKD) >90 (>60 ml/min/1.73 sqM); Potassium 3.9 mmol/L (3.5-5.1); Sodium 136 mmol/L (137-145); Total Bilirubin 0.3 mg/dL (0.2-1.3); Total Protein 6.7 g/dL (6.3-8.2)
--- NOTE | 2019-08-24 13:33 | ED ---
General Adult HPI - General Chief complaint: Fever Stated complaint: bodyaches, fever Time Seen by Provider: 08/24/19 12:30 Source: patient, RN notes reviewed, old records reviewed Mode of arrival: ambulatory Limitations: no limitations - History of Present Illness Initial comments: 39-year-old female with history type 1 diabetes resents for evaluation of fever and myalgias. Patient has had symptoms since Thursday morning which is 48 hours prior to arrival. She's had a mild cough and sore throat. No rhinorrhea. She's had nausea without significant vomiting. She's had abdominal cramping and several episodes of diarrhea. She denies dysuria or hematuria. She states she had a positive home test on Thursday of this week. No vaginal bleeding or vaginal discharge. He states her sugars have been well-controlled and she is on an insulin pump - Related Data Home Medications Medication Instructions Recorded Confirmed Multivitamins, Thera [Multivitamin 1 tab PO DAILY 01/19/17 03/23/18 (formulary)] Insulin Glargine [Lantus] 28 unit SQ DAILY 03/23/18 03/23/18 Insulin Glulisine [Apidra] See Protocol SQ ACHS PRN 03/23/18 03/23/18 Previous Rx's Medication Instructions Recorded Albuterol Inhaler [Ventolin Hfa 2 puff INHALATION Q6HR PRN #1 03/23/18 Inhaler] inhaler predniSONE 20 mg PO BID #10 tab 03/23/18 Allergies Allergy/AdvReac Type Severity Reaction Status Date / Time doxycycline Allergy Rash/Hives Verified 03/23/18 08:45 Sulfa (Sulfonamide Allergy Rash/Hives Verified 03/23/18 08:45 Antibiotics) Review of Systems ROS Statement: Those systems with pertinent positive or pertinent negative responses have been documented in the HPI. ROS Other: All systems not noted in ROS Statement are negative. 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, ovarian cyst History of Any Multi-Drug Resistant Organisms: MRSA Date of last positivie culture/infection: 08/14/17 MDRO Source:: face Past Surgical History: Cholecystectomy Additional Past Surgical History / Comment(s): tumor removal from left neck, left breast lumpectomy Past Anesthesia/Blood Transfusion Reactions: No Reported Reaction Past Psychological History: No Psychological Hx Reported Smoking Status: Current every day smoker Past Alcohol Use History: Occasional Past Drug Use History: None Reported - Past Family History Father Family Medical History: Cancer Additional Family Medical History / Comment(s): colon cancer Mother Family Medical History: No Reported History General Exam Limitations: no limitations General appearance: alert, in no apparent distress Head exam: Present: atraumatic, normocephalic Eye exam: Present: normal appearance, PERRL ENT exam: Present: mucous membranes dry. Absent: normal oropharynx (Mild pharyngeal erythema) Neck exam: Present: normal inspection. Absent: tenderness Respiratory exam: Present: normal lung sounds bilaterally. Absent: respiratory distress, wheezes, rhonchi Cardiovascular Exam: Present: regular rate, normal rhythm GI/Abdominal exam: Present: soft. Absent: distended, tenderness, guarding Extremities exam: Present: normal inspection, normal capillary refill. Absent: pedal edema Neurological exam: Present: alert, oriented X3, CN II-XII intact. Absent: motor sensory deficit Psychiatric exam: Present: normal affect, normal mood Skin exam: Present: warm, dry, intact. Absent: cyanosis, diaphoretic Course Vital Signs 08/24/19 08/24/19 08/24/19 12:17 13:06 14:46 Temperature 97.8 F 99.2 F 97.7 F Pulse Rate 77 Respiratory 20 Rate Blood Pressure 178/106 O2 Sat by Pulse 99 Oximetry Medical Decision Making - Medical Decision Making Type I diabetic presenting with sore throat, cough, diarrhea and fever or chills. Symptoms suggestive of viral illness. Patient having normal CBC, no leukocytosis, stable hemoglobin, she has CMP showing of CO2 of 17 with a normal anion gap of 10. A mildly elevated blood sugar was 73. She has 2+ ketones in the urine with no signs of infection. She is acetone negative. She has a normal pH at 7.4. Findings likely representing dehydration rather than diabetic ketoacidosis. She is offered observation for continued hydration and blood sugar monitoring, she declines. She is offered ultrasound to confirm dates and intrauterine . She declines. She is eager to be discharged home. She will closely monitor symptoms and blood sugar at home. She will return with any worsening or changing symptoms. Patient has current plans for termination of on Thursday. - Lab Data Result diagrams: 08/24/19 12:56 08/24/19 12:56 Lab Results 08/24/19 08/24/19 08/24/19 Range/Units 12:56 12:56 12:56 WBC 5.6 (3.8-10.6) k/uL RBC 4.70 (3.80-5.40) m/uL Hgb 14.0 (11.4-16.0) gm/dL Hct 42.0 (34.0-46.0) % MCV 89.4 (80.0-100.0) fL MCH 29.9 (25.0-35.0) pg MCHC 33.5 (31.0-37.0) g/dL RDW 12.1 (11.5-15.5) % Plt Count 270 (150-450) k/uL Neutrophils % 61 % Lymphocytes % 26 % Monocytes % 8 % Eosinophils % 1 % Basophils % 1 % Neutrophils # 3.4 (1.3-7.7) k/uL Lymphocytes # 1.5 (1.0-4.8) k/uL Monocytes # 0.5 (0-1.0) k/uL Eosinophils # 0.1 (0-0.7) k/uL Basophils # 0.0 (0-0.2) k/uL VBG pH (7.31-7.41) VBG pCO2 (37-51) mmHg VBG HCO3 (24-28) mmol/L Sodium 136 L (137-145) mmol/L Potassium 3.9 (3.5-5.1) mmol/L Chloride 109 H (98-107) mmol/L Carbon Dioxide 17 L (22-30) mmol/L Anion Gap 10 mmol/L BUN 8 (7-17) mg/dL Creatinine 0.51 L (0.52-1.04) mg/dL Est GFR (CKD-EPI)AfAm >90 (>60 ml/min/1.73 sqM) Est GFR (CKD-EPI)NonAf >90 (>60 ml/min/1.73 sqM) Glucose 173 H (74-99) mg/dL Plasma Lactic Acid Alejandro (0.7-2.0) mmol/L Calcium 9.0 (8.4-10.2) mg/dL Total Bilirubin 0.3 (0.2-1.3) mg/dL AST 27 (14-36) U/L ALT 21 (4-34) U/L Alkaline Phosphatase 93 (38-126) U/L Total Protein 6.7 (6.3-8.2) g/dL Albumin 3.6 (3.5-5.0) g/dL Urine Color Urine Appearance (Clear) Urine pH (5.0-8.0) Ur Specific [place] (1.001-1.035) Urine Protein (Negative) Urine Glucose (UA) (Negative) Urine Ketones (Negative) Urine Blood (Negative) Urine Nitrite (Negative) Urine Bilirubin (Negative) Urine Urobilinogen (<2.0) mg/dL Ur Leukocyte Esterase (Negative) Urine RBC (0-5) /hpf Urine WBC (0-5) /hpf Ur Squamous Epith Cells (0-4) /hpf Urine HCG, Qual (Not Detectd) Acetone, Qual Negative (Negative) Influenza Type A RNA Not Detected (Not Detectd) Influenza Type B (PCR) Not Detected (Not Detectd) 08/24/19 08/24/19 08/24/19 Range/Units 12:56 12:56 12:56 WBC (3.8-10.6) k/uL RBC (3.80-5.40) m/uL Hgb (11.4-16.0) gm/dL Hct (34.0-46.0) % MCV (80.0-100.0) fL MCH (25.0-35.0) pg MCHC (31.0-37.0) g/dL RDW (11.5-15.5) % Plt Count (150-450) k/uL Neutrophils % % Lymphocytes % % Monocytes % % Eosinophils % % Basophils % % Neutrophils # (1.3-7.7) k/uL Lymphocytes # (1.0-4.8) k/uL Monocytes # (0-1.0) k/uL Eosinophils # (0-0.7) k/uL Basophils # (0-0.2) k/uL VBG pH (7.31-7.41) VBG pCO2 (37-51) mmHg VBG HCO3 (24-28) mmol/L Sodium (137-145) mmol/L Potassium (3.5-5.1) mmol/L Chloride (98-107) mmol/L Carbon Dioxide (22-30) mmol/L Anion Gap mmol/L BUN (7-17) mg/dL Creatinine (0.52-1.04) mg/dL Est GFR (CKD-EPI)AfAm (>60 ml/min/1.73 sqM) Est GFR (CKD-EPI)NonAf (>60 ml/min/1.73 sqM) Glucose (74-99) mg/dL Plasma Lactic Acid Alejandro 0.8 (0.7-2.0) mmol/L Calcium (8.4-10.2) mg/dL Total Bilirubin (0.2-1.3) mg/dL AST (14-36) U/L ALT (4-34) U/L Alkaline Phosphatase (38-126) U/L Total Protein (6.3-8.2) g/dL Albumin (3.5-5.0) g/dL Urine Color Yellow Urine Appearance Cloudy H (Clear) Urine pH 5.5 (5.0-8.0) Ur Specific [place] 1.013 (1.001-1.035) Urine Protein Trace H (Negative) Urine Glucose (UA) Negative (Negative) Urine Ketones 2+ H (Negative) Urine Blood Negative (Negative) Urine Nitrite Negative (Negative) Urine Bilirubin Negative (Negative) Urine Urobilinogen 2.0 (<2.0) mg/dL Ur Leukocyte Esterase Small H (Negative) Urine RBC 1 (0-5) /hpf Urine WBC 3 (0-5) /hpf Ur Squamous Epith Cells 3 (0-4) /hpf Urine HCG, Qual Detected (Not Detectd) Acetone, Qual (Negative) Influenza Type A RNA (Not Detectd) Influenza Type B (PCR) (Not Detectd) 08/24/19 Range/Units 12:56 WBC (3.8-10.6) k/uL RBC (3.80-5.40) m/uL Hgb (11.4-16.0) gm/dL Hct (34.0-46.0) % MCV (80.0-100.0) fL MCH (25.0-35.0) pg MCHC (31.0-37.0) g/dL RDW (11.5-15.5) % Plt Count (150-450) k/uL Neutrophils % % Lymphocytes % % Monocytes % % Eosinophils % % Basophils % % Neutrophils # (1.3-7.7) k/uL Lymphocytes # (1.0-4.8) k/uL Monocytes # (0-1.0) k/uL Eosinophils # (0-0.7) k/uL Basophils # (0-0.2) k/uL VBG pH 7.40 (7.31-7.41) VBG pCO2 29 L (37-51) mmHg VBG HCO3 18 L (24-28) mmol/L Sodium (137-145) mmol/L Potassium (3.5-5.1) mmol/L Chloride (98-107) mmol/L Carbon Dioxide (22-30) mmol/L Anion Gap mmol/L BUN (7-17) mg/dL Creatinine (0.52-1.04) mg/dL Est GFR (CKD-EPI)AfAm (>60 ml/min/1.73 sqM) Est GFR (CKD-EPI)NonAf (>60 ml/min/1.73 sqM) Glucose (74-99) mg/dL Plasma Lactic Acid Alejandro (0.7-2.0) mmol/L Calcium (8.4-10.2) mg/dL Total Bilirubin (0.2-1.3) mg/dL AST (14-36) U/L ALT (4-34) U/L Alkaline Phosphatase (38-126) U/L Total Protein (6.3-8.2) g/dL Albumin (3.5-5.0) g/dL Urine Color Urine Appearance (Clear) Urine pH (5.0-8.0) Ur Specific [place] (1.001-1.035) Urine Protein (Negative) Urine Glucose (UA) (Negative) Urine Ketones (Negative) Urine Blood (Negative) Urine Nitrite (Negative) Urine Bilirubin (Negative) Urine Urobilinogen (<2.0) mg/dL Ur Leukocyte Esterase (Negative) Urine RBC (0-5) /hpf Urine WBC (0-5) /hpf Ur Squamous Epith Cells (0-4) /hpf Urine HCG, Qual (Not Detectd) Acetone, Qual (Negative) Influenza Type A RNA (Not Detectd) Influenza Type B (PCR) (Not Detectd) Disposition Clinical Impression: Diabetes mellitus type 1, Dehydration, Diarrhea, Disposition: HOME SELF-CARE Condition: Fair Instructions (If sedation given, give patient instructions): Dehydration (ED), Fever in Adults (ED) Is patient prescribed a controlled substance at d/c from ED?: No Referrals: None,Stated [Primary Care Provider] - 1-2 days
[2019-08-24 14:46] VITALS: TEMP 97.7
[2019-08-24 16:06] VITALS: BP 129/75; PULSE 78; RESP 18
== END 2019-08-24 15:51 | disposition home or self-care (01) ==
LOC: EC 12:11
DX: O99.280 Endocrine, nutritional and metabolic diseases complicating pregnancy, unspecified trimester (principal); E86.0 Dehydration; O24.019 Pre-existing type 1 diabetes mellitus, in pregnancy, unspecified trimester; O99.89 Other specified diseases and conditions complicating pregnancy, childbirth and the puerperium; R19.7 Diarrhea, unspecified; J02.9 Acute pharyngitis, unspecified; R05 Cough; R50.9 Fever, unspecified; M79.10 Myalgia, unspecified site; R11.0 Nausea; R10.9 Unspecified abdominal pain; O99.330 Smoking (tobacco) complicating pregnancy, unspecified trimester; F17.200 Nicotine dependence, unspecified, uncomplicated; Z88.1 Allergy status to other antibiotic agents; Z88.2 Allergy status to sulfonamides; Z79.4 Long term (current) use of insulin; Z96.41 Presence of insulin pump (external) (internal); Z86.14 Personal history of Methicillin resistant Staphylococcus aureus infection; Z90.49 Acquired absence of other specified parts of digestive tract; Z3A.00 Weeks of gestation of pregnancy not specified; Z80.0 Family history of malignant neoplasm of digestive organs; Z53.8 Procedure and treatment not carried out for other reasons; Z53.20 Procedure and treatment not carried out because of patient's decision for unspecified reasons
CPT/HCPCS: 36415; 80053; 81001; 81025; 82009; 82803; 83605; 85025; 87040; 87502; 96360; 96361; 99284

== ENCOUNTER → 2019-10-27 | Outpatient (CLI) | payer OTHER ==
[2019-10-27 11:21] LABS: Chol/HDL Ratio 2.64; LDL Cholesterol,Calculated 76.2 mg/dL (0.0-131.0); VLDL Calculation 10.8 mg/dL (5.00-40.00)
[2019-10-27 11:32] LABS: Urine Creatinine 115.9 mg/dL
[2019-10-27 15:03] LABS: Hemoglobin A1C 7.2 % (4.0-6.0)
== END | disposition home or self-care (01) ==
LOC: LABWHC1 07:03
PROVIDERS: ATTEND Internal Medicine
DX: E10.65 Type 1 diabetes mellitus with hyperglycemia (principal); E55.9 Vitamin D deficiency, unspecified
CPT/HCPCS: 36415; 80061; 82043; 82306; 82570; 83036

== ENCOUNTER → 2020-01-12 | Outpatient (CLI) | payer OTHER ==
[2020-01-12 12:46] LABS: HCT 45.9 % (34.0-46.0); HGB 14.8 gm/dL (11.4-16.0); MCH 29.7 pg (25.0-35.0); MCHC 32.3 g/dL (31.0-37.0); MCV 91.9 fL (80.0-100.0); Mean Platelet Volume 9.1; Platelet Count 331 k/uL (150-450); RDW 12.8 % (11.5-15.5); WBC 9.3 k/uL (3.8-10.6)
[2020-01-12 14:43] LABS: Erythrocyte Sedimentation Rate 14 mm/hr (0-20)
[2020-01-12 20:13] LABS: African American GFR (CKD) 108.4 (60.0-200.0); Albumin 4.1 g/dL (3.80-4.90); Albumin/Globulin Ratio 1.58 (1.60-3.17); Anion Gap 3.8 mmol/L (4.00-12.00); BUN/Creat Ratio 8.75 Ratio (12.00-20.00); C Reactive Protein 1.5 mg/dL (0.0-0.8); Calcium 9.8 mg/dL (8.7-10.3); Carbon Dioxide 26.2 mmol/L (21.6-31.8); Globulin 2.6 g/dL (1.6-3.3); Non-African American GFR(CKD) 93.5 (60.0-200.0); Potassium 4.3 mmol/L (3.5-5.5); Total Bilirubin 0.5 mg/dL (0.3-1.2); Total Protein 6.7 g/dL (6.2-8.2)
[2020-01-12 21:04] LABS: Gliadin AB IgA, Deaminated NEGATIVE (NEGATIVE); Gliadin AB IgA, Unit 9.6 U/mL; Gliadin AB IgG, Deaminated NEGATIVE (NEGATIVE)
== END | disposition home or self-care (01) ==
LOC: LABWHC1 11:30
PROVIDERS: ATTEND Nurse Practitioner
DX: K52.9 Noninfective gastroenteritis and colitis, unspecified (principal)
CPT/HCPCS: 36415; 80053; 83516; 83630; 83993; 85027; 85652; 86140; 87045; 87046; 87328; 87329

== ENCOUNTER → 2020-01-13 | Outpatient (CLI) | payer OTHER | END | disposition home or self-care (01) | LOC: LABWHC1 14:44 | PROVIDERS: ATTEND Internal Medicine Gastroenterology | DX: Z11.59 Encounter for screening for other viral diseases (principal) ==

== ENCOUNTER 2020-01-18 09:54 | Day surgery (SDC) | payer OTHER ==
[2020-01-17 09:20] VITALS: BMI 35.0
[~2020-01-18 09:54] MED LIST: LACTATED RINGERS 1,000 ML IV SCH; LIDOCAINE 1% (10MG/ML) FOR IV START INTRADERMA PRN
[2020-01-18 10:15] VITALS: TEMP 98.1
[2020-01-18 10:22] LABS: Glucose,Whole Blood 127 mg/dL (75-99)
[2020-01-18] MEDS ORDERED: PROPOFOL 10 MG/ML 20 ML VIAL IV ONE (11:14)
[2020-01-18] MEDS ORDERED: fentaNYL (PF) 50 MCG/ML 2 ML AMP ONE (11:14)
[2020-01-18] MEDS ORDERED: MIDAZOLAM 2 MG/2 ML VIAL ONE (11:14)
--- NOTE | 2020-01-18 11:39 | P.PCN ---
Date of Procedure: 01/18/20 Procedure(s) Performed: Brief history: Patient is a pleasant 39-year-old white female scheduled for an elective upper endoscopy as well as colonoscopy as a part of evaluation of abdominal pain/chronic diarrhea for the last 3 years duration. She also has a family history of colon cancer diagnosed in her father at age 52, as well as her paternal uncle, aunt, and an paternal grandfather all in their 60s. Procedure performed: Esophagogastroduodenoscopy with biopsy Colonoscopy with biopsy Preoperative diagnosis: Abdominal pain/chronic diarrhea for years duration Strong family history of colon cancer Anesthesia: MAC Procedure: After informed consent was obtained from the patient was brought into the endoscopy unit and IV sedation was administered by anesthesia under continuous monitoring. Initially upper endoscopy was done. The Olympus GF 160 video endoscope was inserted inserted into the mouth and esophagus intubated without any difficulty and was gradually advanced into the stomach and duodenum and carefully examined. The bulb and second part of the duodenum appeared normal. Abscesses were done from the duodenum to rule out celiac disease. The scope was then withdrawn into the stomach adequately insufflated with air and upon careful examination the antrum scattered erosions and biopsies were done from this area. The body, cardia and fundus appeared normal. The scope was then withdrawn into the esophagus. Small sliding type hiatal hernia noted. The GE junction was located at 40 cm to the incisors. It appeared regular with no erythema erosions or ulcerations. Rest of the esophagus appeared normal. Patient tolerated the procedure well. At this time the patient continued to remain sedation. Initial digital rectal examination was normal. Olympus CF 160 video colonoscope was then inserted into the rectum and gradually advanced to the cecum without any difficulty. Careful examination was performed as the scope was gradually being withdrawn. The prep was excellent. The cecum, ascending colon, transverse colon, descending colon, sigmoid colon and rectum appeared normal. Retroflexion was performed in the rectum and no lesions were noted. Random biopsies were done from ascending and descending colon to rule out microscopic/collagenous colitis. Patient tolerated the procedure well. Impression: 1. Upper endoscopy revealed antral erosive gastritis and small hiatal 2. Colonoscopy was within normal limits with no evidence of colitis or colorec kathy neoplasia Recommendations: Findings of this examination were discussed with the patient as well as a family. She was advised to follow with the biopsy. She will be seen in office in 2-3 weeks. She was advised to have a repeat screening colonoscopy in every 2-3 years because of the strong family history of colon cancer.
[2020-01-18] MEDS ORDERED: IV FLUID CONTINUATION 1,000 ML IV ONE (11:42)
[2020-01-18 12:01] VITALS: BP 127/78; PULSE 67; RESP 18
== END 2020-01-18 12:11 | disposition home or self-care (01) ==
LOC: ORWHC2ENDO 09:54
PROVIDERS: ATTEND Internal Medicine Gastroenterology
DX: K29.50 Unspecified chronic gastritis without bleeding (principal); K44.9 Diaphragmatic hernia without obstruction or gangrene; K52.9 Noninfective gastroenteritis and colitis, unspecified; Z80.0 Family history of malignant neoplasm of digestive organs; F17.210 Nicotine dependence, cigarettes, uncomplicated; E11.9 Type 2 diabetes mellitus without complications; N28.89 Other specified disorders of kidney and ureter; Z96.41 Presence of insulin pump (external) (internal); R16.0 Hepatomegaly, not elsewhere classified; E27.8 Other specified disorders of adrenal gland; G43.909 Migraine, unspecified, not intractable, without status migrainosus; N83.209 Unspecified ovarian cyst, unspecified side; Z79.4 Long term (current) use of insulin; Z88.1 Allergy status to other antibiotic agents; Z88.2 Allergy status to sulfonamides
CPT/HCPCS: 81025; 88305; 45380; 43239; J2250; J3010; J2704

== ENCOUNTER 2021-04-29 08:36 | Emergency (ER) | payer OTHER ==
[2021-04-29 09:18] VITALS: RESP 18; TEMP 98.5
[2021-04-29] MEDS ORDERED: ACETAMINOPHEN TAB 500 MG TAB PO STA (09:57)
[2021-04-29 10:00] LABS: Appearance,Urine Clear (Clear); Bilirubin,Urine Negative (Negative); Blood,Urine Negative (Negative); Color,Urine Light Yellow; Glucose,Urine (UA) Negative (Negative); Ketones,Urine Negative (Negative); Leukocyte Esterase,Urine Negative (Negative); Nitrite,Urine Negative (Negative); Protein,Urine Negative (Negative); Specific Gravity,Urine 1.005 (1.001-1.035); Urobilinogen,Urine <2.0 mg/dL (<2.0)
[2021-04-29 10:34] LABS: Basophils # (A) 0.1 k/uL (0-0.2); Basophils % (A) 1 %; Eosinophils # (A) 0.3 k/uL (0-0.7); Eosinophils % (A) 3 %; HCT 45.4 % (34.0-46.0); HGB 15.6 gm/dL (11.4-16.0); Lymphocytes # (A) 1.7 k/uL (1.0-4.8); Lymphocytes % (A) 19 %; MCH 31.3 pg (25.0-35.0); MCHC 34.2 g/dL (31.0-37.0); MCV 91.6 fL (80.0-100.0); Mean Platelet Volume 8.9; Monocytes # (A) 0.5 k/uL (0-1.0); Monocytes % (A) 5 %; Neutrophils # (A) 6.3 k/uL (1.3-7.7); Neutrophils % (A) 69 %; Platelet Count 294 k/uL (150-450); RBC 4.96 m/uL (3.80-5.40); RDW 12.1 % (11.5-15.5); WBC 9.1 k/uL (3.8-10.6)
[2021-04-29 11:23] LABS: ALT 16 U/L (4-34); AST 24 U/L (14-36); African American GFR (CKD) >90 (>60 ml/min/1.73 sqM); Albumin 3.9 g/dL (3.5-5.0); Alkaline Phosphatase 83 U/L (38-126); Anion Gap 7 mmol/L; Blood Urea Nitrogen 9 mg/dL (7-17); Carbon Dioxide 25 mmol/L (22-30); Chloride 104 mmol/L (98-107); Glucose 132 mg/dL (74-99); Non-African American GFR(CKD) >90 (>60 ml/min/1.73 sqM); Potassium 4.3 mmol/L (3.5-5.1); Sodium 136 mmol/L (137-145); Total Bilirubin 0.6 mg/dL (0.2-1.3)
[2021-04-29 11:37] LABS: HCG,Quantitative Serum <2.4 mIU/mL
[2021-04-29 12:13] VITALS: BP 136/78; PULSE 67
--- NOTE | 2021-04-29 12:45 | ED ---
Back Pain HPI - General Chief Complaint: Back Pain/Injury Stated Complaint: kidney issues Time Seen by Provider: 04/29/21 09:15 Source: patient Limitations: no limitations - History of Present Illness Initial Comments: Patient is a 40-year-old female presents emergency room with reported right- sided flank pain. States that she has been having pain for a couple of days and has been getting progressive. States that it is tender to the touch. Pain is worse with bending. Denies any inciting trauma. Patient was concerned that this is due to her kidneys that she has been a type I diabetic for the past 10 years. She denies any urinary complaints to include dysuria, hematuria or the faculty voiding. Denies any complaints in her bowel habits to include diarrhea, constipation, melenic stools or hematochezia. No abnormal vaginal bleeding or discharge. No concern for sexy transit infections. Last menstrual cycle was April 15. Denies any provocative factors. Has not taken any medications for her symptoms. 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 ROS Other: All systems not noted in ROS Statement are negative. 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, ovarian cyst History of Any Multi-Drug Resistant Organisms: MRSA Date of last positivie culture/infection: 08/14/17 MDRO Source:: face Past Surgical History: Cholecystectomy Additional Past Surgical History / Comment(s): mass removed left breast and left neck - all benign Past Anesthesia/Blood Transfusion Reactions: No Reported Reaction Past Psychological History: No Psychological Hx Reported Smoking Status: Never smoker Past Alcohol Use History: Occasional Past Drug Use History: None Reported - Past Family History Father Family Medical History: Cancer Additional Family Medical History / Comment(s): colon cancer Mother Family Medical History: No Reported History General Exam Limitations: no limitations General appearance: alert, in no apparent distress Head exam: Present: atraumatic, normocephalic, normal inspection Eye exam: Present: normal appearance, PERRL, EOMI. Absent: scleral icterus, conjunctival injection, periorbital swelling ENT exam: Present: normal exam, mucous membranes moist Neck exam: Present: normal inspection. Absent: tenderness, meningismus, lymphadenopathy Respiratory exam: Present: normal lung sounds bilaterally. Absent: respiratory distress, wheezes, rales, rhonchi, stridor Cardiovascular Exam: Present: regular rate, normal rhythm, normal heart sounds. Absent: systolic murmur, diastolic murmur, rubs, gallop, clicks GI/Abdominal exam: Present: soft, normal bowel sounds. Absent: distended, tenderness, guarding, rebound, rigid Extremities exam: Present: normal inspection, full ROM, normal capillary refill. Absent: tenderness, pedal edema, joint swelling, calf tenderness Back exam: Present: CVA tenderness (R) Neurological exam: Present: alert, oriented X3, CN II-XII intact Psychiatric exam: Present: normal affect, normal mood Skin exam: Present: warm, dry, intact, normal color. Absent: rash Course Vital Signs 04/29/21 04/29/21 04/29/21 09:14 10:18 11:00 Temperature 98.5 F Pulse Rate 85 Respiratory 18 18 18 Rate Blood Pressure 146/92 O2 Sat by Pulse 100 Oximetry 04/29/21 04/29/21 12:00 13:00 Temperature 98.5 F Pulse Rate 67 67 Respiratory 18 18 Rate Blood Pressure 136/78 136/78 O2 Sat by Pulse 96 96 Oximetry Medical Decision Making - Medical Decision Making On arrival patient is placed into room 29. Thorough history and physical exam was performed. Laboratory studies are conducted and patient provided urine sample. She has no saddle anesthesia. No bowel or bladder incontinence. Laboratory studies are reviewed. Kidney function normal. Urinalysis is clean. As the patient does have reproducible back pain I did recommend treatment with NSAIDs. I did offer to write a prescription however the patient states that she will get Aleve [id number]. She is instructed on its use. Stated to not do any heavy lifting or bending. Please form compresses to the site. Follow with her primary care doctor in 2-4 days. Return to the emergency room for any new or worsening symptoms. Patient was in agreement treatment plan and discharged home ambulatory in stable condition - Lab Data Result diagrams: 04/29/21 10:19 04/29/21 10:19 Lab Results 04/29/21 04/29/21 04/29/21 Range/Units 09:46 10:19 10:19 WBC 9.1 (3.8-10.6) k/uL RBC 4.96 (3.80-5.40) m/uL Hgb 15.6 (11.4-16.0) gm/dL Hct 45.4 (34.0-46.0) % MCV 91.6 (80.0-100.0) fL MCH 31.3 (25.0-35.0) pg MCHC 34.2 (31.0-37.0) g/dL RDW 12.1 (11.5-15.5) % Plt Count 294 (150-450) k/uL MPV 8.9 Neutrophils % 69 % Lymphocytes % 19 % Monocytes % 5 % Eosinophils % 3 % Basophils % 1 % Neutrophils # 6.3 (1.3-7.7) k/uL Lymphocytes # 1.7 (1.0-4.8) k/uL Monocytes # 0.5 (0-1.0) k/uL Eosinophils # 0.3 (0-0.7) k/uL Basophils # 0.1 (0-0.2) k/uL Sodium 136 L (137-145) mmol/L Potassium 4.3 (3.5-5.1) mmol/L Chloride 104 (98-107) mmol/L Carbon Dioxide 25 (22-30) mmol/L Anion Gap 7 mmol/L BUN 9 (7-17) mg/dL Creatinine 0.59 (0.52-1.04) mg/dL Est GFR (CKD-EPI)AfAm >90 (>60 ml/min/1.73 sqM) Est GFR (CKD-EPI)NonAf >90 (>60 ml/min/1.73 sqM) Glucose 132 H (74-99) mg/dL Calcium 10.0 (8.4-10.2) mg/dL Total Bilirubin 0.6 (0.2-1.3) mg/dL AST 24 (14-36) U/L ALT 16 (4-34) U/L Alkaline Phosphatase 83 (38-126) U/L Total Protein 7.0 (6.3-8.2) g/dL Albumin 3.9 (3.5-5.0) g/dL HCG, Quant <2.4 mIU/mL Urine Color Light Yellow Urine Appearance Clear (Clear) Urine pH 7.0 (5.0-8.0) Ur Specific [place] 1.005 (1.001-1.035) Urine Protein Negative (Negative) Urine Glucose (UA) Negative (Negative) Urine Ketones Negative (Negative) Urine Blood Negative (Negative) Urine Nitrite Negative (Negative) Urine Bilirubin Negative (Negative) Urine Urobilinogen <2.0 (<2.0) mg/dL Ur Leukocyte Esterase Negative (Negative) Disposition Clinical Impression: Flank pain, Mechanical back pain Disposition: HOME SELF-CARE Condition: Stable Instructions (If sedation given, give patient instructions): Flank Pain (ED) Additional Instructions: Please take Naprosyn twice daily. Rest and place warm compresses to the site. No heavy lifting. Follow-up with your primary care doctor in 2-4 days. Return to the emergency room for any worsening symptoms Is patient prescribed a controlled substance at d/c from ED?: No Referrals: Salvador Tipton MD [Primary Care Provider] - 1-2 days Time of Disposition: 12:45
== END 2021-04-29 13:01 | disposition home or self-care (01) ==
LOC: EC 08:36
DX: M54.9 Dorsalgia, unspecified (principal); R10.9 Unspecified abdominal pain; E10.9 Type 1 diabetes mellitus without complications; Z88.2 Allergy status to sulfonamides; Z90.49 Acquired absence of other specified parts of digestive tract; Z88.1 Allergy status to other antibiotic agents
CPT/HCPCS: 36415; 80053; 81003; 84702; 85025; 99284

== ENCOUNTER 2023-05-17 03:39 | Emergency (ER) | payer BC, OTHER ==
[2023-05-17 03:51] VITALS: TEMP 98.8
[2023-05-17] MEDS ORDERED: AMOXIC-POT CLAV 875MG STARTER PACK 2 TAB BTL PO STA (04:36)
[2023-05-17] MEDS ORDERED: ACET/COD 300 MG/30 MG STARTER PACK 6 TAB BTL PO STA (04:36)
[2023-05-17 05:20] VITALS: BP 125/83; PULSE 83; RESP 18
--- NOTE | 2023-06-23 01:08 | ED ---
ENT HPI - General Chief complaint: Dental/Oral Stated complaint: RT SIDE FACE SWELLING Time Seen by Provider: 05/17/23 04:25 Source: patient Mode of arrival: ambulatory Limitations: no limitations - History of Present Illness Initial comments: This patient is 42-year-old woman who presents to have evaluation for right mandibular pain and swelling. She states she noticed a little mild swelling yesterday, worsened today and then she started having increasing pain. No fever or chills. No difficulty with speech or swallowing. No dyspnea or cough. MD complaint: tooth pain -: days(s) Location: other (Right mandibular) Severity: severe Quality: aching Consistency: constant Improves with: none Worsens with: none Context- Dental: history of dental caries Associated Symptoms: gum swelling, toothache - Related Data Home Medications Medication Instructions Recorded Confirmed Multivitamins, Thera [Multivitamin 1 tab PO DAILY 01/19/17 04/29/21 (formulary)] INSULIN LISPRO (For Pump) [humaLOG 0.01 units SQ-PUMP CONTINUOUS 04/29/21 04/29/21 (For Pump)] Previous Rx's Medication Instructions Recorded Amoxic-Pot Clav 875-125Mg 1 tab PO Q12HR 1 Days #20 tab 05/17/23 [Augmentin 875-125] Omeprazole [PriLOSEC] 20 mg PO AC-BID 14 Days #28 cap 05/17/23 Allergies Allergy/AdvReac Type Severity Reaction Status Date / Time doxycycline Allergy Rash/Hives Verified 05/17/23 08:01 Sulfa (Sulfonamide Allergy Rash/Hives Verified 05/17/23 08:01 Antibiotics) Review of Systems ROS Statement: Those systems with pertinent positive or pertinent negative responses have been documented in the HPI. ROS Other: All systems not noted in ROS Statement are negative. Constitutional: Denies: fever, chills Eyes: Denies: eye pain, eye discharge, vision change ENT: Reports: dental pain. Denies: ear pain, congestion Respiratory: Denies: cough, dyspnea Cardiovascular: Denies: chest pain Skin: Denies: rash Neurological: Denies: headache 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, ovarian cyst History of Any Multi-Drug Resistant Organisms: MRSA Date of last positivie culture/infection: 08/14/17 MDRO Source:: face Past Surgical History: Cholecystectomy Additional Past Surgical History / Comment(s): mass removed left breast and left neck - all benign Past Anesthesia/Blood Transfusion Reactions: No Reported Reaction Past Psychological History: No Psychological Hx Reported Smoking Status: Never smoker Past Alcohol Use History: Occasional Past Drug Use History: None Reported - Past Family History Father Family Medical History: Cancer Additional Family Medical History / Comment(s): colon cancer Mother Family Medical History: No Reported History General Exam Limitations: no limitations General appearance: alert, in no apparent distress Head exam: Present: atraumatic, normocephalic Eye exam: Present: normal appearance, EOMI. Absent: scleral icterus, conjunctival injection ENT exam: Present: other (Right mandibular caries. There is small amount of swelling of the gingiva and oral mucosa but no discrete abscess. No sublingual fullness or neck swelling) Neck exam: Present: normal inspection, full ROM. Absent: tenderness, meningismus Respiratory exam: Present: normal lung sounds bilaterally. Absent: respiratory distress, wheezes, rales, rhonchi, stridor Cardiovascular Exam: Present: regular rate, normal rhythm, normal heart sounds. Absent: systolic murmur, diastolic murmur, rubs, gallop Neurological exam: Present: alert Skin exam: Present: warm, dry, intact, normal color. Absent: rash Course Vital Signs 05/17/23 05/17/23 03:45 05:02 Temperature 98.8 F Pulse Rate 77 83 Respiratory 16 18 Rate Blood Pressure 149/91 125/83 O2 Sat by Pulse 97 98 Oximetry Medical Decision Making - Medical Decision Making Was pt. sent in by a medical professional or institution (, PA, INCUBATOR MACHINE OPERATOR, urgent care, hospital, or longterm...) When possible be specific @ -[No] Did you speak to anyone other than the patient for history (EMS, parent, family, police, friend...)? What history was obtained from this source @ -[No] Did you review nursing and triage notes (agree or disagree)? Why? @ -[I reviewed and agree with nursing and triage notes] Were old charts reviewed (outside hosp., previous admission, EMS record, old EKG, old radiological studies, urgent care reports/EKG's, longterm records)? Report findings @ -[No old charts were reviewed] Differential Diagnosis (chest pain, altered mental status, abdominal pain women, abdominal pain men, vaginal bleeding, weakness, fever, dyspnea, syncope, headache, dizziness, GI bleed, back pain, seizure, CVA, palpatations, mental health, musculoskeletal)? @ -[Differential diagnosis includes caries, dental infection, abscess, Alexx's angina, amongst other causes EKG interpreted by me (3pts min.). @ -[As above] X-rays interpreted by me (1pt min.). @ -[None done] CT interpreted by me (1pt min.). @ -[None done] U/S interpreted by me (1pt. min.). @ -[None done] What testing was considered but not performed or refused? (CT, X-rays, U/S, labs)? Why? @ -[None] What meds were considered but not given or refused? Why? @ -[None] Did you discuss the management of the patient with other professionals (professionals i.e. , PA, INCUBATOR MACHINE OPERATOR, lab, RT, psych nurse, child protective services social worker, binding machine operator, teacher, chief safety officer, hospice case manager)? Give summary @ -[No] Was smoking cessation discussed for >3mins.? @ -[No] Was critical care preformed (if so, how long)? @ -[No] Were there social determinants of health that impacted care today? How? (Homelessness, low income, unemployed, alcoholism, drug addiction, transportation, low edu. Level, literacy, decrease access to med. care, usp, rehab)? @ -[No] Was there de-escalation of care discussed even if they declined (Discuss DNR or withdrawal of care, Hospice)? DNR status @ -[No] What co-morbidities impacted this encounter? (DM, HTN, Smoking, COPD, CAD, Cancer, CVA, ARF, Chemo, Hep., AIDS, mental health diagnosis, sleep apnea, morbid obesity)? @ -[None] Was patient admitted / discharged? Hospital course, mention meds given and route, prescriptions, significant lab abnormalities, going to OR and other pertinent info. @ -[Patient will be started on antibiotics and she is given analgesic. Patient will follow with dentist. We discussed appropriate further care as well as return parameters Undiagnosed new problem with uncertain prognosis? @ -[No] Drug Therapy requiring intensive monitoring for toxicity (Heparin, Nitro, Insulin, Cardizem)? @ -[No] Were any procedures done? @ -[No] Diagnosis/symptom? @ -[Acute dental pain Acute, or Chronic, or Acute on Chronic? @ -[Acute Uncomplicated (without systemic symptoms) or Complicated (systemic symptoms)? @ -[Uncomplicated Side effects of treatment? @ -[No] Exacerbation, Progression, or Severe Exacerbation? @ -[No] Poses a threat to life or bodily function? How? (Chest pain, USA, ID, pneumonia, PE, COPD, DKA, ARF, appy, cholecystitis, CVA, Diverticulitis, Homicidal, Suicidal, threat to staff... and all critical care pts) @ -[No] Disposition Clinical Impression: Pain, dental Disposition: HOME SELF-CARE Condition: Good Prescriptions: Amoxic-Pot Clav 875-125Mg [Augmentin 875-125] 1 tab PO Q12HR 1 Days #20 tab Is patient prescribed a controlled substance at d/c from ED?: No Referrals: Salvador Tipton MD [Primary Care Provider] - 1-2 days
== END 2023-05-17 05:10 | disposition home or self-care (01) ==
LOC: EC 03:39
DX: K08.89 Other specified disorders of teeth and supporting structures (principal); E11.9 Type 2 diabetes mellitus without complications; Z79.4 Long term (current) use of insulin; Z88.2 Allergy status to sulfonamides; Z88.8 Allergy status to other drugs, medicaments and biological substances; Z90.49 Acquired absence of other specified parts of digestive tract
CPT/HCPCS: 99283

== ENCOUNTER 2023-05-17 07:57 | Emergency (ER) | payer OTHER ==
[2023-05-17 08:04] VITALS: RESP 18; TEMP 98
[2023-05-17] MEDS ORDERED: HYDROmorphone 1 MG/ML 1 ML SYRINGE IVP STA (08:11)
[2023-05-17] MEDS ORDERED: FAMOTIDINE 20 MG/2 ML VIAL IV STA (08:12)
--- NOTE | 2023-05-17 08:16 | ED ---
General Adult HPI - General Chief complaint: Chest Pain Stated complaint: Chest Pain Time Seen by Provider: 05/17/23 08:03 Source: patient, RN notes reviewed, old records reviewed Mode of arrival: ambulatory Limitations: no limitations - History of Present Illness Initial comments: 42-year-old female with central and left-sided chest pain. Pain again suddenly, woke the patient from her sleep. No associated vomiting. The pain is worse with deep inspiration and movement. She has no prior history of coronary artery disease. She has a type I diabetic. She denies lower extremity pain or swelling. Patient does have a dental infection and was started on Augmentin which she had taken approximately one hour prior to the onset of symptoms. - Related Data Home Medications Medication Instructions Recorded Confirmed Multivitamins, Thera [Multivitamin 1 tab PO DAILY 01/19/17 04/29/21 (formulary)] INSULIN LISPRO (For Pump) [humaLOG 0.01 units SQ-PUMP CONTINUOUS 04/29/21 04/29/21 (For Pump)] Previous Rx's Medication Instructions Recorded Amoxic-Pot Clav 875-125Mg 1 tab PO Q12HR 1 Days #20 tab 05/17/23 [Augmentin 875-125] Omeprazole [PriLOSEC] 20 mg PO AC-BID 14 Days #28 cap 05/17/23 Allergies Allergy/AdvReac Type Severity Reaction Status Date / Time doxycycline Allergy Rash/Hives Verified 05/17/23 08:01 Sulfa (Sulfonamide Allergy Rash/Hives Verified 05/17/23 08:01 Antibiotics) Review of Systems ROS Statement: Those systems with pertinent positive or pertinent negative responses have been documented in the HPI. ROS Other: All systems not noted in ROS Statement are negative. 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, ovarian cyst History of Any Multi-Drug Resistant Organisms: MRSA Date of last positivie culture/infection: 08/14/17 MDRO Source:: face Past Surgical History: Cholecystectomy Additional Past Surgical History / Comment(s): mass removed left breast and left neck - all benign Past Anesthesia/Blood Transfusion Reactions: No Reported Reaction Past Psychological History: No Psychological Hx Reported Smoking Status: Never smoker Past Alcohol Use History: Occasional Past Drug Use History: None Reported - Past Family History Father Family Medical History: Cancer Additional Family Medical History / Comment(s): colon cancer Mother Family Medical History: No Reported History General Exam Limitations: no limitations General appearance: alert, in distress Head exam: Present: atraumatic, normocephalic Eye exam: Present: normal appearance, PERRL ENT exam: Present: normal exam Neck exam: Present: normal inspection. Absent: tenderness, meningismus Respiratory exam: Present: normal lung sounds bilaterally, respiratory distress Cardiovascular Exam: Present: regular rate, normal rhythm GI/Abdominal exam: Present: soft. Absent: distended, tenderness Extremities exam: Present: normal inspection, normal capillary refill. Absent: calf tenderness Neurological exam: Present: alert, oriented X3, CN II-XII intact. 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 Stable vitals. Medical Decision Making - Medical Decision Making Was pt. sent in by a medical professional or institution ([facility] Gonzalez, DEVICE ENGINEER, urgent care, hospital, or senior care...) When possible be specific @ -[No] Did you speak to anyone other than the patient for history (EMS, parent, family, police, friend...)? What history was obtained from this source @ -[No] Did you review nursing and triage notes (agree or disagree)? Why? @ -[I reviewed and agree with nursing and triage notes] Were old charts reviewed (outside hosp., previous admission, EMS record, old EKG, old radiological studies, urgent care reports/EKG's, senior care records)? Report findings @ -[No old charts were reviewed] Differential Diagnosis (chest pain, altered mental status, abdominal pain women, abdominal pain men, vaginal bleeding, weakness, fever, dyspnea, syncope, h eadache, dizziness, GI bleed, back pain, seizure, CVA, palpatations, mental health, musculoskeletal)? @ -[not applicable] EKG interpreted by me (3pts min.). @ Initial EKG: Sinus rhythm rate of 74, ID interval 140, QRS duration 82, QTC [address] segment elevation. Repeat EKG at 0846, sinus rhythm rate of 76, ID interval 147, QRS duration 84, QTC [birth year]1936, no ST segment elevation. X-rays interpreted by me (1pt min.). @Chest x-ray is clear, no acute cardiopulmonary findings. CT interpreted by me (1pt min.). @CT angiography negative for pulmonary embolism, no acute findings. U/S interpreted by me (1pt. min.). @ -[None done] What testing was considered but not performed or refused? (CT, X-rays, U/S, la bs)? Why? @ -[None] What meds were considered but not given or refused? Why? @ -[None] Did you discuss the management of the patient with other professionals (professionals i.e. , PA, DEVICE ENGINEER, lab, RT, psych nurse, case management social worker, spray worker, teacher, chemical instrumentation officer, protective services case worker)? Give summary @ -[No] Was smoking cessation discussed for >3mins.? @ -[No] Was critical care preformed (if so, how long)? @ -[No] Were there social determinants of health that impacted care today? How? (Homelessness, low income, unemployed, alcoholism, drug addiction, transportation, low edu. Level, literacy, decrease access to med. care, care home, rehab)? @ -[No] Was there de-escalation of care discussed even if they declined (Discuss DNR or withdrawal of care, Hospice)? DNR status @ -[No] What co-morbidities impacted this encounter? (DM, HTN, Smoking, COPD, CAD, Cancer, CVA, ARF, Chemo, Hep., AIDS, mental health diagnosis, sleep apnea, morbid obesity)? @Diabetes Was patient admitted / discharged? Hospital course, mention meds given and route, prescriptions, significant lab abnormalities, going to OR and other per tinent info. @22-year-old female presenting with an episode of epigastric and left-sided chest pain. Nonreproducible exam. Pain is moderate to severe at the time of initial evaluation. Her EKG is nonischemic, sinus rhythm this was repeated twice without change. Patient had taken an antibiotic pill with small amount water about one hour prior to his symptoms. Patient given Pepcid and pain medication emergency Department with complete resolution of symptoms. I did perform chest x-ray as well as CT angiography for a minimally elevated d-dimer as 0.59. This was negative for any acute findings. Troponin level was repeated at a 3 hour interval and remained negative. She remained asymptomatic. Patient is comfortable with discharge at this time. She will take a proton pump inhibitor, she will follow with her primary care physician and return to the emergency department with any worsening or changing symptoms. Undiagnosed new problem with uncertain prognosis? @ -[No] Drug Therapy requiring intensive monitoring for toxicity (Heparin, Nitro, Insulin, Cardizem)? @ -[No] Were any procedures done? @ -[No] Diagnosis/symptom? @ -[default] Acute, or Chronic, or Acute on Chronic? @ -[default] Uncomplicated (without systemic symptoms) or Complicated (systemic symptoms)? @ -[default] Side effects of treatment? @ -[No] Exacerbation, Progression, or Severe Exacerbation? @ -[No] Poses a threat to life or bodily function? How? (Chest pain, [place], [place], pneumonia, PE, COPD, DKA, ARF, appy, cholecystitis, CVA, Diverticulitis, Homicidal, Suicidal, threat to staff... and all critical care pts) @ -[No] - Lab Data Result diagrams: 05/17/23 08:19 05/17/23 08:24 Lab Results 05/17/23 05/17/23 05/17/23 Range/Units 08:19 08:19 08:19 WBC 10.2 (3.8-10.6) k/uL RBC 4.92 (3.80-5.40) m/uL Hgb 15.0 (11.4-16.0) gm/dL Hct 44.8 (34.0-46.0) % MCV 90.9 (80.0-100.0) fL MCH 30.4 (25.0-35.0) pg MCHC 33.5 (31.0-37.0) g/dL RDW 12.4 (11.5-15.5) % Plt Count 240 (150-450) k/uL MPV 9.8 Neutrophils % 63 % Lymphocytes % 24 % Monocytes % 5 % Eosinophils % 5 % Basophils % 0 % Neutrophils # 6.5 (1.3-7.7) k/uL Lymphocytes # 2.4 (1.0-4.8) k/uL Monocytes # 0.6 (0-1.0) k/uL Eosinophils # 0.6 (0-0.7) k/uL Basophils # 0.0 (0-0.2) k/uL PT 9.7 (9.0-12.0) sec INR 0.9 (<1.2) APTT 24.4 (22.0-30.0) sec D-Dimer 0.59 (<0.60) mg/L FEU Sodium (137-145) mmol/L Potassium (3.5-5.1) mmol/L Chloride (98-107) mmol/L Carbon Dioxide (22-30) mmol/L Anion Gap mmol/L BUN (7-17) mg/dL Creatinine (0.52-1.04) mg/dL Est GFR (CKD-EPI)AfAm (>60 ml/min/1.73 sqM) Est GFR (CKD-EPI)NonAf (>60 ml/min/1.73 sqM) Glucose (74-99) mg/dL Calcium (8.4-10.2) mg/dL Magnesium (1.6-2.3) mg/dL Total Bilirubin (0.2-1.3) mg/dL AST (14-36) U/L ALT (4-34) U/L Alkaline Phosphatase (38-126) U/L Troponin I <0.012 (0.000-0.034) ng/mL Total Protein (6.3-8.2) g/dL Albumin (3.5-5.0) g/dL Lipase (23-300) U/L 05/17/23 05/17/23 Range/Units 08:24 11:12 WBC (3.8-10.6) k/uL RBC (3.80-5.40) m/uL Hgb (11.4-16.0) gm/dL Hct (34.0-46.0) % MCV (80.0-100.0) fL MCH (25.0-35.0) pg MCHC (31.0-37.0) g/dL RDW (11.5-15.5) % Plt Count (150-450) k/uL MPV Neutrophils % % Lymphocytes % % Monocytes % % Eosinophils % % Basophils % % Neutrophils # (1.3-7.7) k/uL Lymphocytes # (1.0-4.8) k/uL Monocytes # (0-1.0) k/uL Eosinophils # (0-0.7) k/uL Basophils # (0-0.2) k/uL PT (9.0-12.0) sec INR (<1.2) APTT (22.0-30.0) sec D-Dimer (<0.60) mg/L FEU Sodium 138 (137-145) mmol/L Potassium 4.3 (3.5-5.1) mmol/L Chloride 106 (98-107) mmol/L Carbon Dioxide 18 L (22-30) mmol/L Anion Gap 14 mmol/L BUN 12 (7-17) mg/dL Creatinine 0.61 (0.52-1.04) mg/dL Est GFR (CKD-EPI)AfAm >90 (>60 ml/min/1.73 sqM) Est GFR (CKD-EPI)NonAf >90 (>60 ml/min/1.73 sqM) Glucose 101 H (74-99) mg/dL Calcium 9.5 (8.4-10.2) mg/dL Magnesium 1.7 (1.6-2.3) mg/dL Total Bilirubin 1.0 (0.2-1.3) mg/dL AST 75 H (14-36) U/L ALT 27 (4-34) U/L Alkaline Phosphatase 101 (38-126) U/L Troponin I <0.012 (0.000-0.034) ng/mL Total Protein 7.3 (6.3-8.2) g/dL Albumin 4.0 (3.5-5.0) g/dL Lipase 51 (23-300) U/L Disposition Clinical Impression: Chest pain Disposition: HOME SELF-CARE Condition: Fair Instructions (If sedation given, give patient instructions): Chest Pain (ED) Prescriptions: Omeprazole [PriLOSEC] 20 mg PO AC-BID 14 Days #28 cap Is patient prescribed a controlled substance at d/c from ED?: No Referrals: Salvador Tipton MD [Primary Care Provider] - 1-2 days Time of Disposition: 12:23
[2023-05-17 08:42] LABS: Basophils % (A) 0 %; Eosinophils # (A) 0.6 k/uL (0-0.7); Eosinophils % (A) 5 %; HCT 44.8 % (34.0-46.0); Lymphocytes # (A) 2.4 k/uL (1.0-4.8); Lymphocytes % (A) 24 %; MCH 30.4 pg (25.0-35.0); MCHC 33.5 g/dL (31.0-37.0); MCV 90.9 fL (80.0-100.0); Mean Platelet Volume 9.8; Monocytes # (A) 0.6 k/uL (0-1.0); Monocytes % (A) 5 %; Neutrophils # (A) 6.5 k/uL (1.3-7.7); Neutrophils % (A) 63 %; Platelet Count 240 k/uL (150-450); RBC 4.92 m/uL (3.80-5.40); RDW 12.4 % (11.5-15.5); WBC 10.2 k/uL (3.8-10.6)
[2023-05-17 08:55] LABS: ALT 27 U/L (4-34); AST 75 U/L (14-36); African American GFR (CKD) >90 (>60 ml/min/1.73 sqM); Alkaline Phosphatase 101 U/L (38-126); Anion Gap 14 mmol/L; Blood Urea Nitrogen 12 mg/dL (7-17); Calcium 9.5 mg/dL (8.4-10.2); Carbon Dioxide 18 mmol/L (22-30); Chloride 106 mmol/L (98-107); Glucose 101 mg/dL (74-99); Lipase 51 U/L (23-300); Magnesium 1.7 mg/dL (1.6-2.3); Non-African American GFR(CKD) >90 (>60 ml/min/1.73 sqM); Potassium 4.3 mmol/L (3.5-5.1); Sodium 138 mmol/L (137-145); Total Protein 7.3 g/dL (6.3-8.2)
[2023-05-17 09:00] LABS: INR 0.9 (<1.2); Partial Thromboplastin Time 24.4 sec (22.0-30.0); Prothrombin Time 9.7 sec (9.0-12.0)
--- NOTE | 2023-05-17 09:30 | XR ---
EXAMINATION TYPE: XR chest 2V DATE OF EXAM: 05/17/2023 COMPARISON: 03/23/2018 HISTORY: Chest pain TECHNIQUE: Frontal and lateral views of the chest are obtained. FINDINGS: There is no focal air space opacity, pleural effusion, or pneumothorax seen. The cardiac silhouette size is within normal limits. The osseous structures are intact. IMPRESSION: No acute cardiopulmonary process.
[2023-05-17 09:43] VITALS: BP 137/89
--- NOTE | 2023-05-17 10:21 | CT ---
EXAMINATION TYPE: CT angio chest DATE OF EXAM: 05/17/2023 10:10 AM COMPARISON: None HISTORY: chest pain CT DLP: 228.4 mGycm Automated exposure control for dose reduction was used. CONTRAST: CTA scan of the thorax is performed with IV Contrast, patient injected with 100 mL of Isovue 370, pul monary embolism protocol. . FINDINGS: LUNGS: The lungs are grossly clear, there is no concerning parenchymal mass or nodule identified. T here is no pleural effusion or pneumothorax seen. The tracheobronchial tree is patent. MEDIASTINUM: There is satisfactory enhancement of the pulmonary artery and its branches, there is no CT evidence for pulmonary embolism. There are no greater than 1 cm hilar or mediastinal lymph nodes. No pericardial effusion is seen. IMPRESSION: 1. NO EVIDENCE OF PULMONARY EMBOLISM. 2. NO ACUTE CARDIOPULMONARY DISEASE.
[2023-05-17 12:51] VITALS: PULSE 71
== END 2023-05-17 12:42 | disposition home or self-care (01) ==
LOC: EC 07:57
DX: R07.89 Other chest pain (principal); R79.1 Abnormal coagulation profile; E10.9 Type 1 diabetes mellitus without complications; Z88.1 Allergy status to other antibiotic agents; Z88.2 Allergy status to sulfonamides; Z90.49 Acquired absence of other specified parts of digestive tract
CPT/HCPCS: 36415; 93005; 85379; 80053; 83690; 83735; 84484; 85025; 85610; 85730; 71046; 71275; 99285; 96374; 96375; J3490; J1170; Q9967

== ENCOUNTER 2024-01-09 20:22 | Emergency (ER) | payer BC, OTHER ==
[2024-01-09 20:33] LABS: Glucose,Whole Blood 471 mg/dL (70-110)
[2024-01-09 20:36] VITALS: RESP 18; TEMP 97.5
[2024-01-09 20:48] LABS: Appearance,Urine Clear (Clear); Bilirubin,Urine Negative (Negative); Blood,Urine Negative (Negative); Color,Urine Colorless; Glucose,Urine (UA) 4+ (Negative); Leukocyte Esterase,Urine Moderate (Negative); Mucus,Urine Rare /hpf; Nitrite,Urine Negative (Negative); Protein,Urine Negative (Negative); RBC,Urine 1 /hpf (0-5); Specific Gravity,Urine 1.029 (1.001-1.035); Squamous Epithelial Cell,Urine 3 /hpf (0-4); Urobilinogen,Urine <2.0 mg/dL (<2.0); WBC,Urine 4 /hpf (0-5)
[2024-01-09 20:54] LABS: Basophils # (A) 0.1 k/uL (0-0.2); Basophils % (A) 1 %; Eosinophils # (A) 0.3 k/uL (0-0.7); Eosinophils % (A) 2 %; HCT 49.4 % (34.0-46.0); HGB 15.9 gm/dL (11.4-16.0); Lymphocytes % (A) 15 %; MCH 30.2 pg (25.0-35.0); MCHC 32.2 g/dL (31.0-37.0); MCV 93.8 fL (80.0-100.0); Mean Platelet Volume 9.2; Monocytes # (A) 0.6 k/uL (0-1.0); Monocytes % (A) 5 %; Neutrophils # (A) 10.5 k/uL (1.3-7.7); Neutrophils % (A) 77 %; Platelet Count 278 k/uL (150-450); RBC 5.27 m/uL (3.80-5.40); RDW 12.2 % (11.5-15.5); WBC 13.7 k/uL (3.8-10.6)
[2024-01-09 20:55] LABS: Ketones,Urine 2+ (Negative)
[2024-01-09 21:04] LABS: ALT 16 U/L (4-34); AST 19 U/L (14-36); African American GFR (CKD) >90 (>60 ml/min/1.73 sqM); Albumin 4.7 g/dL (3.5-5.0); Alkaline Phosphatase 96 U/L (38-126); Amylase 43 U/L (30-110); Anion Gap 16 mmol/L; Blood Urea Nitrogen 15 mg/dL (7-17); Calcium 9.6 mg/dL (8.4-10.2); Carbon Dioxide 16 mmol/L (22-30); Chloride 101 mmol/L (98-107); Glucose 429 mg/dL (74-99); Non-African American GFR(CKD) >90 (>60 ml/min/1.73 sqM); Potassium 3.7 mmol/L (3.5-5.1); Sodium 133 mmol/L (137-145); Total Bilirubin 1.1 mg/dL (0.2-1.3); Total Protein 7.6 g/dL (6.3-8.2)
--- NOTE | 2024-01-09 21:21 | ED ---
General Adult HPI - General Chief complaint: Nausea/Vomiting/Diarrhea Stated complaint: High blood sugar, Vomiting, Diabetic Time Seen by Provider: 01/09/24 21:20 Source: patient Mode of arrival: ambulatory Limitations: no limitations - History of Present Illness Initial comments: Patient is a type I diabetic who presents the ER today feeling unwell she reports she is felt nauseated and unwell for about 2 weeks but today was feeling even worse and her sugars got high so she came to the ER. Patient states that 3 weeks ago her continuous blood glucose monitor stopped working and insurance has not been able to replace it. Patient states she has been checking her sugar but prior to this her pump communicated with her continuous blood glucose monitor and managed her insulin without much intervention from her. Patient states her sugars have been less well-controlled over the past 3 weeks. Today they are elevated. - Related Data Home Medications Medication Instructions Recorded Confirmed Multivitamins, Thera [Multivitamin 1 tab PO DAILY 01/19/17 04/29/21 (formulary)] INSULIN LISPRO (For Pump) [humaLOG 0.01 units SQ-PUMP CONTINUOUS 04/29/21 04/29/21 (For Pump)] Previous Rx's Medication Instructions Recorded Amoxic-Pot Clav 875-125Mg 1 tab PO Q12HR 1 Days #20 tab 05/17/23 [Augmentin 875-125] Omeprazole [PriLOSEC] 20 mg PO AC-BID 14 Days #28 cap 05/17/23 Allergies Allergy/AdvReac Type Severity Reaction Status Date / Time doxycycline Allergy Rash/Hives Verified 05/17/23 08:01 Sulfa (Sulfonamide Allergy Rash/Hives Verified 05/17/23 08:01 Antibiotics) Review of Systems ROS Statement: Those systems with pertinent positive or pertinent negative responses have been documented in the HPI. ROS Other: All systems not noted in ROS Statement are negative. 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, ovarian cyst History of Any Multi-Drug Resistant Organisms: MRSA Date of last positivie culture/infection: 08/14/17 MDRO Source:: face Past Surgical History: Cholecystectomy Additional Past Surgical History / Comment(s): mass removed left breast and left neck - all benign Past Anesthesia/Blood Transfusion Reactions: No Reported Reaction Past Psychological History: No Psychological Hx Reported Smoking Status: Never smoker, Vaper Past Alcohol Use History: Occasional Past Drug Use History: None Reported - Past Family History Father Family Medical History: Cancer Additional Family Medical History / Comment(s): colon cancer Mother Family Medical History: No Reported History General Exam - General Exam Comments Initial Comments: Physical Exam GENERAL: Patient is well-developed and well-nourished. Patient is nontoxic and well-hydrated and is in no distress. HENT: Normocephalic, Atraumatic. EYES: PERRL, EOMI PULMONARY: Unlabored respirations. CARDIOVASCULAR: RRR Warm and well perfused extremities ABDOMEN: Non-distended SKIN: No rashes or bruising : Deferred NEUROLOGIC: Alert and oriented Normal speech Normal gait MUSCULOSKELETAL: Moving all extremities with no apparent injury PSYCHIATRIC: No SI/HI Limitations: no limitations Course Vital Signs 01/09/24 01/09/24 01/10/24 20:27 23:28 01:00 Temperature 97.5 F L Pulse Rate 92 80 78 Respiratory 18 18 18 Rate Blood Pressure 135/83 120/70 119/69 O2 Sat by Pulse 99 97 95 Oximetry Medical Decision Making - Medical Decision Making Was pt. sent in by a medical professional or institution (, PA, CEO & CO FOUNDER, urgent care, hospital, or prison...) When possible be specific @ -No Did you speak to anyone other than the patient for history (EMS, parent, family, police, friend...)? What history was obtained from this source @ -No Did you review nursing and triage notes (agree or disagree)? Why? @ -I reviewed and agree with nursing and triage notes Were old charts reviewed (outside hosp., previous admission, EMS record, old EKG, old radiological studies, urgent care reports/EKG's, prison records)? Report findings @ -No old charts were reviewed Differential Diagnosis (chest pain, altered mental status, abdominal pain women, abdominal pain men, vaginal bleeding, weakness, fever, dyspnea, syncope, headache, dizziness, GI bleed, back pain, seizure, CVA, palpatations, mental health)? @Differential Abdominal Pain Women: Appendicitis, Cholecystitis, diverticulosis, ischemic bowel, pancreatitis, hepatitis, UTI, gastroenteritis, AAA, incarcerated hernia, bowel obstruction, constipation, inflammatory bowel, hepatitis, peptic ulcer disease, splenic infarction, perforated viscus, vulvitis, ovarian torsion, PID, kidney stone, placenta abruption, this is not meant to be an all-inclusive list EKG interpreted by me (3pts min.). @ -As above X-rays interpreted by me (1pt min.). @ -None done CT interpreted by me (1pt min.). @ -None done U/S interpreted by me (1pt. min.). @ -None done What testing was considered but not performed or refused? (CT, X-rays, U/S, labs)? Why? @ -None What meds were considered but not given or refused? Why? @ -None Did you discuss the management of the patient with other professionals (professionals i.e. , PA, CEO & CO FOUNDER, lab, RT, psych nurse, high school social studies teacher, software quality specialist, teacher, giving officer, pillowcase cleaner)? Give summary @ -No Was smoking cessation discussed for >3mins.? @ -No Was critical care preformed (if so, how long)? @ -No Were there social determinants of health that impacted care today? How? (Homelessness, low income, unemployed, alcoholism, drug addiction, transportation, low edu. Level, literacy, decrease access to med. care, [facility], rehab)? @ -No Was there de-escalation of care discussed even if they declined (Discuss DNR or withdrawal of care, Hospice)? DNR status @ -No What co-morbidities impacted this encounter? (DM, HTN, Smoking, COPD, CAD, Cancer, CVA, ARF, Chemo, Hep., AIDS, mental health diagnosis, sleep apnea, morbid obesity)? @ -Diabetes type 1 Was patient admitted / discharged? Hospital course, mention meds given and route, prescriptions, significant lab abnormalities, going to OR and other pertinent info. @ -Discharged Patient was seen and evaluated, history was obtained from the patient. Upon a rrival the patient was hyperglycemic and appeared dehydrated. Based on her labs she had minimally elevated anion gap, patient was treated with IV fluids and insulin drip. Patient reported feeling better after the IV fluids. Her labs were improving. She does have her insulin pump on and it is available. She is comfortable with plan for discharge home and managing her diabetes. Undiagnosed new problem with uncertain prognosis? @ -No Drug Therapy requiring intensive monitoring for toxicity (Heparin, Nitro, Insulin, Cardizem)? @ -No Were any procedures done? @ -No Diagnosis/symptom? @ -Hyperglycemia Acute, or Chronic, or Acute on Chronic? @ -Default Uncomplicated (without systemic symptoms) or Complicated (systemic symptoms)? @ -Default Side effects of treatment? @ -No Exacerbation, Progression, or Severe Exacerbation? @ -No Poses a threat to life or bodily function? How? (Chest pain, USA, MD, pneumonia, PE, COPD, DKA, ARF, appy, cholecystitis, CVA, Diverticulitis, Homicidal, Suicidal, threat to staff... and all critical care pts) @ -No - Lab Data Result diagrams: 01/09/24 20:31 01/10/24 01:52 Lab Results 01/09/24 01/09/24 01/09/24 Range/Units 20:30 20:30 20:31 WBC 13.7 H (3.8-10.6) k/uL RBC 5.27 (3.80-5.40) m/uL Hgb 15.9 (11.4-16.0) gm/dL Hct 49.4 H (34.0-46.0) % MCV 93.8 (80.0-100.0) fL MCH 30.2 (25.0-35.0) pg MCHC 32.2 (31.0-37.0) g/dL RDW 12.2 (11.5-15.5) % Plt Count 278 (150-450) k/uL MPV 9.2 Neutrophils % 77 % Lymphocytes % 15 % Monocytes % 5 % Eosinophils % 2 % Basophils % 1 % Neutrophils # 10.5 H (1.3-7.7) k/uL Lymphocytes # 2.0 (1.0-4.8) k/uL Monocytes # 0.6 (0-1.0) k/uL Eosinophils # 0.3 (0-0.7) k/uL Basophils # 0.1 (0-0.2) k/uL Sodium (137-145) mmol/L Potassium (3.5-5.1) mmol/L Chloride (98-107) mmol/L Carbon Dioxide (22-30) mmol/L Anion Gap mmol/L BUN (7-17) mg/dL Creatinine (0.52-1.04) mg/dL Est GFR (CKD-EPI)AfAm (>60 ml/min/1.73 sqM) Est GFR (CKD-EPI)NonAf (>60 ml/min/1.73 sqM) Glucose (74-99) mg/dL POC Glucose (mg/dL) 471 H (70-110) mg/dL POC Glu Sulfide Head Operator Jeremiah Linton Calcium (8.4-10.2) mg/dL Total Bilirubin (0.2-1.3) mg/dL AST (14-36) U/L ALT (4-34) U/L Alkaline Phosphatase (38-126) U/L Total Protein (6.3-8.2) g/dL Albumin (3.5-5.0) g/dL Amylase (30-110) U/L Urine Color Colorless Urine Appearance Clear (Clear) Urine pH 5.0 (5.0-8.0) Ur Specific [place] 1.029 (1.001-1.035) Urine Protein Negative (Negative) Urine Glucose (UA) 4+ H (Negative) Urine Ketones 2+ H (Negative) Urine Blood Negative (Negative) Urine Nitrite Negative (Negative) Urine Bilirubin Negative (Negative) Urine Urobilinogen <2.0 (<2.0) mg/dL Ur Leukocyte Esterase Moderate H (Negative) Urine RBC 1 (0-5) /hpf Urine WBC 4 (0-5) /hpf Ur Squamous Epith Cells 3 (0-4) /hpf Urine Mucus Rare H (None) /hpf Acetone, Qual (Negative) 01/09/24 01/09/24 01/10/24 Range/Units 20:31 23:27 00:04 WBC (3.8-10.6) k/uL RBC (3.80-5.40) m/uL Hgb (11.4-16.0) gm/dL Hct (34.0-46.0) % MCV (80.0-100.0) fL MCH (25.0-35.0) pg MCHC (31.0-37.0) g/dL RDW (11.5-15.5) % Plt Count (150-450) k/uL MPV Neutrophils % % Lymphocytes % % Monocytes % % Eosinophils % % Basophils % % Neutrophils # (1.3-7.7) k/uL Lymphocytes # (1.0-4.8) k/uL Monocytes # (0-1.0) k/uL Eosinophils # (0-0.7) k/uL Basophils # (0-0.2) k/uL Sodium 133 L (137-145) mmol/L Potassium 3.7 (3.5-5.1) mmol/L Chloride 101 (98-107) mmol/L Carbon Dioxide 16 L (22-30) mmol/L Anion Gap 16 mmol/L BUN 15 (7-17) mg/dL Creatinine 0.77 (0.52-1.04) mg/dL Est GFR (CKD-EPI)AfAm >90 (>60 ml/min/1.73 sqM) Est GFR (CKD-EPI)NonAf >90 (>60 ml/min/1.73 sqM) Glucose 429 H (74-99) mg/dL POC Glucose (mg/dL) 138 H 87 (70-110) mg/dL POC Glu Sulfide Head Operator ID Michael, Rosenda Michael, Rosenda Calcium 9.6 (8.4-10.2) mg/dL Total Bilirubin 1.1 (0.2-1.3) mg/dL AST 19 (14-36) U/L ALT 16 (4-34) U/L Alkaline Phosphatase 96 (38-126) U/L Total Protein 7.6 (6.3-8.2) g/dL Albumin 4.7 (3.5-5.0) g/dL Amylase 43 (30-110) U/L Urine Color Urine Appearance (Clear) Urine pH (5.0-8.0) Ur Specific [place] (1.001-1.035) Urine Protein (Negative) Urine Glucose (UA) (Negative) Urine Ketones (Negative) Urine Blood (Negative) Urine Nitrite (Negative) Urine Bilirubin (Negative) Urine Urobilinogen (<2.0) mg/dL Ur Leukocyte Esterase (Negative) Urine RBC (0-5) /hpf Urine WBC (0-5) /hpf Ur Squamous Epith Cells (0-4) /hpf Urine Mucus (None) /hpf Acetone, Qual Positive (Negative) 01/10/24 01/10/24 01/10/24 Range/Units 01:06 01:52 01:57 WBC (3.8-10.6) k/uL RBC (3.80-5.40) m/uL Hgb (11.4-16.0) gm/dL Hct (34.0-46.0) % MCV (80.0-100.0) fL MCH (25.0-35.0) pg MCHC (31.0-37.0) g/dL RDW (11.5-15.5) % Plt Count (150-450) k/uL MPV Neutrophils % % Lymphocytes % % Monocytes % % Eosinophils % % Basophils % % Neutrophils # (1.3-7.7) k/uL Lymphocytes # (1.0-4.8) k/uL Monocytes # (0-1.0) k/uL Eosinophils # (0-0.7) k/uL Basophils # (0-0.2) k/uL Sodium 136 L (137-145) mmol/L Potassium 3.6 (3.5-5.1) mmol/L Chloride 108 H (98-107) mmol/L Carbon Dioxide 21 L (22-30) mmol/L Anion Gap 7 mmol/L BUN 13 (7-17) mg/dL Creatinine 0.59 (0.52-1.04) mg/dL Est GFR (CKD-EPI)AfAm >90 (>60 ml/min/1.73 sqM) Est GFR (CKD-EPI)NonAf >90 (>60 ml/min/1.73 sqM) Glucose 110 H (74-99) mg/dL POC Glucose (mg/dL) 84 125 H (70-110) mg/dL POC Glu Sulfide Head Operator [place] Russel Pedroza Francesca Calcium 8.8 (8.4-10.2) mg/dL Total Bilirubin (0.2-1.3) mg/dL AST (14-36) U/L ALT (4-34) U/L Alkaline Phosphatase (38-126) U/L Total Protein (6.3-8.2) g/dL Albumin (3.5-5.0) g/dL Amylase (30-110) U/L Urine Color Urine Appearance (Clear) Urine pH (5.0-8.0) Ur Specific [place] (1.001-1.035) Urine Protein (Negative) Urine Glucose (UA) (Negative) Urine Ketones (Negative) Urine Blood (Negative) Urine Nitrite (Negative) Urine Bilirubin (Negative) Urine Urobilinogen (<2.0) mg/dL Ur Leukocyte Esterase (Negative) Urine RBC (0-5) /hpf Urine WBC (0-5) /hpf Ur Squamous Epith Cells (0-4) /hpf Urine Mucus (None) /hpf Acetone, Qual (Negative) Disposition Clinical Impression: Dehydration, DKA (diabetic ketoacidosis) Disposition: HOME SELF-CARE Condition: Stable Instructions (If sedation given, give patient instructions): Diabetic Ketoacidosis (DC) Is patient prescribed a controlled substance at d/c from ED?: No Referrals: Salvador Tipton MD [Primary Care Provider] - 1-2 days
[2024-01-09] MEDS ORDERED: DEXTROSE 50% SYRINGE 50 ML IVP PRN ×2 (21:23)
[2024-01-09] MEDS ORDERED: Potassium Replacement Protocol 1 EACH MISC MISCELLANE PRN (21:23)
[2024-01-09] MEDS ORDERED: Magnesium Replacement Protocol 1 EACH MISC MISCELLANE PRN (21:23)
[2024-01-09] MEDS: SODIUM CHLORIDE 0.9% 1,000 ML IV ONE (21:56)
[2024-01-09] MEDS: ONDANSETRON 4 MG/2 ML VIAL IVP STA (21:57)
[2024-01-09] MEDS: FAMOTIDINE 20 MG/2 ML VIAL IV STA (22:02)
[2024-01-09] MEDS: SODIUM CHLORIDE 0.9% 1,000 ML IV SCH (22:03)
[2024-01-09] MEDS: INSULIN REGULAR 100 UNIT in SODIUM CHLORIDE 0.9% 100 ML IV SCH (22:05)
[2024-01-09] MEDS: INSULIN REGULAR BOLUS (FROM DRIP BAG) IV ONE (22:07)
[2024-01-09 23:29] LABS: Glucose,Whole Blood 138 mg/dL (70-110)
[2024-01-10] MEDS: D5-0.45% NACL WITH KCL 20MEQ/L 1,000 ML IV SCH (00:02)
[2024-01-10 00:15] LABS: Glucose,Whole Blood 87 mg/dL (70-110)
[2024-01-10 01:08] LABS: Glucose,Whole Blood 84 mg/dL (70-110)
[2024-01-10 01:58] LABS: Glucose,Whole Blood 125 mg/dL (70-110)
[2024-01-10 02:15] VITALS: BP 119/69; PULSE 78
[2024-01-10 02:16] LABS: African American GFR (CKD) >90 (>60 ml/min/1.73 sqM); Anion Gap 7 mmol/L; Blood Urea Nitrogen 13 mg/dL (7-17); Calcium 8.8 mg/dL (8.4-10.2); Carbon Dioxide 21 mmol/L (22-30); Chloride 108 mmol/L (98-107); Glucose 110 mg/dL (74-99); Non-African American GFR(CKD) >90 (>60 ml/min/1.73 sqM); Potassium 3.6 mmol/L (3.5-5.1); Sodium 136 mmol/L (137-145)
== END 2024-01-10 02:52 | disposition home or self-care (01) ==
LOC: EC 20:22
DX: E10.10 Type 1 diabetes mellitus with ketoacidosis without coma (principal); E86.0 Dehydration; E10.65 Type 1 diabetes mellitus with hyperglycemia; F17.290 Nicotine dependence, other tobacco product, uncomplicated; Z79.4 Long term (current) use of insulin; Z88.2 Allergy status to sulfonamides; Z88.8 Allergy status to other drugs, medicaments and biological substances
CPT/HCPCS: 36415 ×2; 80053; 80048; 82150; 82009; 85025; 81001; 99284; 96375; 96361; 96365; 96366; J2405; J3490

== ENCOUNTER 2024-02-06 09:27 | Inpatient (IN) | payer BC ==
--- NOTE | 2024-02-06 10:01 | ED ---
General Adult HPI - General Chief complaint: Abdominal Pain Stated complaint: abd pain Time Seen by Provider: 02/06/24 09:39 Source: patient, RN notes reviewed Mode of arrival: ambulatory Limitations: no limitations - History of Present Illness Initial comments: Patient is a 43-year-old female presenting to the emergency department with concerns for abdominal discomfort. Onset of symptoms was yesterday. Patient does have nausea and has had some mild vomiting. Patient also has had some mucousy like diarrhea. Small amounts. No history of similar symptoms previously. Discomfort is more lower abdomen. No fever. - Related Data Home Medications Medication Instructions Recorded Confirmed Multivitamins, Thera [Multivitamin 1 tab PO DAILY 01/19/17 04/29/21 (formulary)] INSULIN LISPRO (For Pump) [humaLOG 0.01 units SQ-PUMP CONTINUOUS 04/29/21 04/29/21 (For Pump)] Previous Rx's Medication Instructions Recorded Amoxic-Pot Clav 875-125Mg 1 tab PO Q12HR 1 Days #20 tab 05/17/23 [Augmentin 875-125] Omeprazole [PriLOSEC] 20 mg PO AC-BID 14 Days #28 cap 05/17/23 Allergies Allergy/AdvReac Type Severity Reaction Status Date / Time doxycycline Allergy Rash/Hives Verified 02/06/24 09:35 Sulfa (Sulfonamide Allergy Rash/Hives Verified 02/06/24 09:35 Antibiotics) Review of Systems ROS Statement: Those systems with pertinent positive or pertinent negative responses have been documented in the HPI. ROS Other: All systems not noted in ROS Statement are negative. Constitutional: Denies: fever Eyes: Denies: eye pain ENT: Denies: ear pain Respiratory: Denies: dyspnea Cardiovascular: Denies: chest pain Gastrointestinal: Reports: as per HPI, abdominal pain, nausea, vomiting, diarrhea Genitourinary: Denies: dysuria 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, ovarian cyst History of Any Multi-Drug Resistant Organisms: MRSA Date of last positivie culture/infection: 08/14/17 MDRO Source:: face Past Surgical History: Cholecystectomy Additional Past Surgical History / Comment(s): mass removed left breast and left neck - all benign Past Anesthesia/Blood Transfusion Reactions: No Reported Reaction Past Psychological History: No Psychological Hx Reported Smoking Status: Never smoker, Vaper Past Alcohol Use History: Occasional Past Drug Use History: None Reported - Past Family History Father Family Medical History: Cancer Additional Family Medical History / Comment(s): colon cancer Mother Family Medical History: No Reported History General Exam Limitations: no limitations General appearance: alert, in no apparent distress Head exam: Present: normocephalic Eye exam: Present: normal appearance Neck exam: Present: normal inspection Respiratory exam: Present: normal lung sounds bilaterally Cardiovascular Exam: Present: regular rate, normal rhythm Expanded Peripheral pulses: 2+: Dorsalis Pedis (R), Dorsalis Pedis (L) GI/Abdominal exam: Present: soft, tenderness (Mild diffuse tenderness, moderate lower abdomen), normal bowel sounds. Absent: distended, rebound, rigid, pulsatile mass Extremities exam: Present: normal inspection Neurological exam: Present: alert Psychiatric exam: Present: normal affect, normal mood Skin exam: Present: normal color Course Vital Signs 02/06/24 09:34 Temperature 97.3 F L Pulse Rate 95 Respiratory 18 Rate Blood Pressure 138/82 O2 Sat by Pulse 97 Oximetry Medical Decision Making - Medical Decision Making Was pt. sent in by a medical professional or institution (, PA, OFFC SPEC, urgent care, hospital, or care home...) When possible be specific @ -No Did you speak to anyone other than the patient for history (EMS, parent, family, police, friend...)? What history was obtained from this source @ -No Did you review nursing and triage notes (agree or disagree)? Why? @ -I reviewed and agree with nursing and triage notes Were old charts reviewed (outside hosp., previous admission, EMS record, old EKG, old radiological studies, urgent care reports/EKG's, care home records)? Report findings @ -No old charts were reviewed Differential Diagnosis (chest pain, altered mental status, abdominal pain women, abdominal pain men, vaginal bleeding, weakness, fever, dyspnea, syncope, headache, dizziness, GI bleed, back pain, seizure, CVA, palpatations, mental health, musculoskeletal)? @ -Differential Abdominal Pain Women: Appendicitis, Cholecystitis, diverticulosis, ischemic bowel, pancreatitis, hepatitis, UTI, gastroenteritis, AAA, incarcerated hernia, bowel obstruction, constipation, inflammatory bowel, hepatitis, peptic ulcer disease, splenic infarction, perforated viscus, vulvitis, ovarian torsion, PID, kidney stone, placenta abruption, this is not meant to be an all-inclusive list EKG interpreted by me (3pts min.). @ -As above X-rays interpreted by me (1pt min.). @ -None done CT interpreted by me (1pt min.). @ -CT scan shows nonspecific findings. Right renal cyst. U/S interpreted by me (1pt. min.). @ -None done What testing was considered but not performed or refused? (CT, X-rays, U/S, labs)? Why? @ -None What meds were considered but not given or refused? Why? @ -None Did you discuss the management of the patient with other professionals (professionals i.e. , PA, OFFC SPEC, lab, RT, psych nurse, 7th grade social studies teacher, raw silk grader, teacher, chief fundraising officer, case maker)? Give summary @ -Case discussed with Dr. Avendaño will admit covering Dr. Tipton Was smoking cessation discussed for >3mins.? @ -No Was critical care preformed (if so, how long)? @ -No Were there social determinants of health that impacted care today? How? (Homelessness, low income, unemployed, alcoholism, drug addiction, transportation, low edu. Level, literacy, decrease access to med. care, prison, rehab)? @ -No Was there de-escalation of care discussed even if they declined (Discuss DNR or withdrawal of care, Hospice)? DNR status @ -No What co-morbidities impacted this encounter? (DM, HTN, Smoking, COPD, CAD, Cancer, CVA, ARF, Chemo, Hep., AIDS, mental health diagnosis, sleep apnea, morbid obesity)? @ -None Was patient admitted / discharged? Hospital course, mention meds given and route, prescriptions, significant lab abnormalities, going to OR and other pertinent info. @ -Patient presents with abdominal discomfort with some mucus in her stools and some nausea vomiting. Patient will be admitted for clinical colitis. Surgical consult will be placed. There is potential for sepsis at 1330. Blood culture lactic acid and IV antibiotics will be ordered Undiagnosed new problem with uncertain prognosis? @ -No Drug Therapy requiring intensive monitoring for toxicity (Heparin, Nitro, Insulin, Cardizem)? @ -No Were any procedures done? @ -No Diagnosis/symptom? @ -Abdominal pain Acute, or Chronic, or Acute on Chronic? @ -Acute Uncomplicated (without systemic symptoms) or Complicated (systemic symptoms)? @ -Default Side effects of treatment? @ -No Exacerbation, Progression, or Severe Exacerbation? @ -No Poses a threat to life or bodily function? How? (Chest pain, [place], [place], pneumonia, PE, COPD, DKA, ARF, appy, cholecystitis, CVA, Diverticulitis, Homicidal, Suicidal, threat to staff... and all critical care pts) @ -No - Lab Data Result diagrams: 02/06/24 10:08 02/06/24 10:08 Lab Results 02/06/24 02/06/24 02/06/24 Range/Units 10:08 10:08 10:08 WBC 15.7 H (3.8-10.6) k/uL RBC 5.25 (3.80-5.40) m/uL Hgb 15.7 (11.4-16.0) gm/dL Hct 49.3 H (34.0-46.0) % MCV 93.9 (80.0-100.0) fL MCH 30.0 (25.0-35.0) pg MCHC 31.9 (31.0-37.0) g/dL RDW 12.4 (11.5-15.5) % Plt Count 283 (150-450) k/uL MPV 9.9 Neutrophils % 76 % Lymphocytes % 13 % Monocytes % 6 % Eosinophils % 3 % Basophils % 1 % Neutrophils # 12.0 H (1.3-7.7) k/uL Lymphocytes # 2.1 (1.0-4.8) k/uL Monocytes # 0.9 (0-1.0) k/uL Eosinophils # 0.5 (0-0.7) k/uL Basophils # 0.1 (0-0.2) k/uL PT 10.8 (10.0-12.5) sec INR 1.0 (<1.2) APTT 27.3 (22.0-30.0) sec Sodium 136 L (137-145) mmol/L Potassium 4.2 (3.5-5.1) mmol/L Chloride 108 H (98-107) mmol/L Carbon Dioxide 20 L (22-30) mmol/L Anion Gap 8 mmol/L BUN 9 (7-17) mg/dL Creatinine 0.60 (0.52-1.04) mg/dL Est GFR (CKD-EPI)AfAm >90 (>60 ml/min/1.73 sqM) Est GFR (CKD-EPI)NonAf >90 (>60 ml/min/1.73 sqM) Glucose 177 H (74-99) mg/dL Calcium 9.3 (8.4-10.2) mg/dL Total Bilirubin 1.0 (0.2-1.3) mg/dL AST 19 (14-36) U/L ALT 13 (4-34) U/L Alkaline Phosphatase 83 (38-126) U/L Total Protein 7.1 (6.3-8.2) g/dL Albumin 4.2 (3.5-5.0) g/dL Amylase 49 (30-110) U/L Lipase 28 (23-300) U/L HCG, Quant <2.4 mIU/mL Disposition Clinical Impression: Colitis Disposition: ADMITTED IP TO THIS HOSP Is patient prescribed a controlled substance at d/c from ED?: No Referrals: Salvador Tipton MD [Primary Care Provider] - 1-2 days Time of Disposition: 13:40
[2024-02-06] MEDS: SODIUM CHLORIDE 0.9% 1,000 ML IV STA ×2 (10:08→13:55)
[2024-02-06] MEDS: ONDANSETRON 4 MG/2 ML VIAL IVP STA (10:11)
[2024-02-06] MEDS: FAMOTIDINE 20 MG/2 ML VIAL IV STA (10:12)
[2024-02-06] MEDS: HYDROmorphone 1 MG/ML 1 ML SYRINGE IVP STA ×2 (10:13→11:10)
[2024-02-06 10:27] LABS: Basophils # (A) 0.1 k/uL (0-0.2); Basophils % (A) 1 %; Eosinophils # (A) 0.5 k/uL (0-0.7); Eosinophils % (A) 3 %; HCT 49.3 % (34.0-46.0); HGB 15.7 gm/dL (11.4-16.0); Lymphocytes # (A) 2.1 k/uL (1.0-4.8); Lymphocytes % (A) 13 %; MCHC 31.9 g/dL (31.0-37.0); MCV 93.9 fL (80.0-100.0); Mean Platelet Volume 9.9; Monocytes # (A) 0.9 k/uL (0-1.0); Monocytes % (A) 6 %; Neutrophils % (A) 76 %; Platelet Count 283 k/uL (150-450); RBC 5.25 m/uL (3.80-5.40); RDW 12.4 % (11.5-15.5); WBC 15.7 k/uL (3.8-10.6)
[2024-02-06 10:41] LABS: ALT 13 U/L (4-34); AST 19 U/L (14-36); African American GFR (CKD) >90 (>60 ml/min/1.73 sqM); Albumin 4.2 g/dL (3.5-5.0); Alkaline Phosphatase 83 U/L (38-126); Amylase 49 U/L (30-110); Anion Gap 8 mmol/L; Blood Urea Nitrogen 9 mg/dL (7-17); Calcium 9.3 mg/dL (8.4-10.2); Carbon Dioxide 20 mmol/L (22-30); Chloride 108 mmol/L (98-107); Glucose 177 mg/dL (74-99); Lipase 28 U/L (23-300); Non-African American GFR(CKD) >90 (>60 ml/min/1.73 sqM); Potassium 4.2 mmol/L (3.5-5.1); Sodium 136 mmol/L (137-145); Total Protein 7.1 g/dL (6.3-8.2)
[2024-02-06 10:53] LABS: Partial Thromboplastin Time 27.3 sec (22.0-30.0); Prothrombin Time 10.8 sec (10.0-12.5)
[2024-02-06 10:57] LABS: HCG,Quantitative Serum <2.4 mIU/mL
--- NOTE | 2024-02-06 12:13 | CT ---
EXAMINATION TYPE: CT abdomen pelvis w con DATE OF EXAM: 02/06/2024 COMPARISON: None INDICATION: abdominal pain that radiates to the back x2 days. DLP: 1014.1 mGycm, Automated exposure control for dose reduction was used. CONTRAST: 100ml mL of Isovue 300. Study performed without Oral Contrast TECHNIQUE: Axial images were obtained from above the diaphragm to the pubic rami in the axial plane a t 5 mm thick sections. Reconstructed images are reviewed on the computer in the coronal plane. FINDINGS: Limited CT sections are obtained the lung bases. The lung bases are clear. CT ABDOMEN: Liver: There is a hypodensity within the lateral left lobe liver. This has near complete filling on t he delayed images. Findings are suggestive for a diagnostic of hemangioma. This could be further eval uated with MRI with contrast. Liver otherwise appears unremarkable Spleen: Normal Pancreas: Normal Adrenal glands: The adrenal glands are normal. Gallbladder: Surgically absent Kidneys: No masses are evident. No hydronephrosis is present. There is a 9.6 cm cyst at the inferio r pole left kidney. This has some peripheral calcification. Note is made of malrotation and malpositi oning of the right kidney. Delayed images were obtained through the kidneys, which remain otherwise unremarkable. Aorta: Normal Inferior vena cava: Normal. CT PELVIS: Loops of bowel within the abdomen and pelvis are normal. This study is without oral contrast limi ting bowel evaluation. Appendix: Not identified. Small amount of fluid is in the right paracolic gutter. Clinical management of any suspected appendicitis is recommended. Urinary bladder: Normal. Genitourinary structures: Uterus is normal. Cysts on the left ovary. Right adnexa appears normal Osseous structures: A few small sclerotic areas are within the right iliac wing sacrum. Findings are nonspecific. Bone islands could be demonstrated. No suspicious lytic lesions. IMPRESSION: 1. Small hemangioma suspected lateral right lobe liver. This could be confirmed with MRI with contra st. 2. Small amount of fluid in the paracolic gutters the level of the cecum. Appendix is not identified. Clinical management of any suspected appendicitis is recommended. 3. Large inferior pole right renal cyst containing some peripheral calcification. Monitoring is recom mended.
[2024-02-06] MEDS ORDERED: NALOXONE 0.4 MG/ML 1 ML VIAL IV PRN (13:41)
[2024-02-06] MEDS: AMPICILLIN-SULBACTAM 3 GM in SODIUM CHLORIDE 0.9% 100 ML IVPB STA (13:55)
[2024-02-06] MEDS: ENOXAPARIN 40 MG/0.4 ML SYRINGE SQ SCH (16:19)
[2024-02-06] MEDS: HYDROmorphone 1 MG/ML 1 ML SYRINGE IVP PRN (16:32)
[2024-02-06] MEDS: ONDANSETRON 4 MG/2 ML VIAL IVP PRN (19:12)
[2024-02-07] MEDS: SODIUM CHLORIDE 0.9% 1,000 ML IV SCH (00:44)
[2024-02-07] MEDS: AMPICILLIN-SULBACTAM 1.5 GM in SODIUM CHLORIDE 0.9% 50 ML IVPB SCH (01:35)
[2024-02-07] MEDS: HYDROmorphone 0.5 MG/0.5 ML SYRINGE IVP PRN (03:21)
[2024-02-07 06:24] LABS: Basophils # (A) 0.1 k/uL (0-0.2); Basophils % (A) 1 %; Eosinophils # (A) 0.5 k/uL (0-0.7); Eosinophils % (A) 7 %; HCT 41.9 % (34.0-46.0); HGB 13.5 gm/dL (11.4-16.0); Lymphocytes # (A) 1.8 k/uL (1.0-4.8); Lymphocytes % (A) 24 %; MCH 30.7 pg (25.0-35.0); MCHC 32.1 g/dL (31.0-37.0); MCV 95.5 fL (80.0-100.0); Mean Platelet Volume 9.4; Monocytes # (A) 0.6 k/uL (0-1.0); Monocytes % (A) 7 %; Neutrophils # (A) 4.4 k/uL (1.3-7.7); Neutrophils % (A) 59 %; Platelet Count 207 k/uL (150-450); RBC 4.39 m/uL (3.80-5.40); RDW 12.4 % (11.5-15.5); WBC 7.5 k/uL (3.8-10.6)
[2024-02-07 06:39] LABS: ALT 159 U/L (4-34); AST 269 U/L (14-36); African American GFR (CKD) >90 (>60 ml/min/1.73 sqM); Albumin 3.1 g/dL (3.5-5.0); Albumin/Globulin Ratio 1.2; Alkaline Phosphatase 107 U/L (38-126); Anion Gap 5 mmol/L; Blood Urea Nitrogen 6 mg/dL (7-17); Carbon Dioxide 22 mmol/L (22-30); Chloride 109 mmol/L (98-107); Globulin 2.5 g/dL; Glucose 83 mg/dL (74-99); Non-African American GFR(CKD) >90 (>60 ml/min/1.73 sqM); Potassium 4.1 mmol/L (3.5-5.1); Sodium 136 mmol/L (137-145); Total Bilirubin 1.9 mg/dL (0.2-1.3); Total Protein 5.6 g/dL (6.3-8.2)
[2024-02-07] MEDS: PANTOPRAZOLE 40 MG/10 ML VIAL IV SCH (09:07)
[2024-02-07] MEDS: ACETAMINOPHEN TAB 325 MG TAB PO PRN (09:36)
--- NOTE | 2024-02-07 11:03 | P.GSCN ---
History of Present Illness Consult date: 02/07/24 Reason for Consult: Abdominal pain History of present illness: 43-year-old female presents to the ER with complaints of lower abdominal pain. Patient has had pain for the last few days. Says she has had pain for up to a week but worse in the last day or 2. Some nausea and vomiting. Describes mucousy stools. No rectal bleeding. Has had a colonoscopy was many years ago. States she thinks she is due for repeat colonoscopy since there is a family history of colon cancer in her father and multiple family members on her father side. Patient describes a burning discomfort on the left-hand side of her abdomen. She has bloated. Says she was told in the past she has irritable bowel syndrome. White blood cell count was elevated at 15.7 on admission repeat was 7.5. Her liver enzymes were normal on admission however increased signif icantly on today's repeat. History of previous cholecystectomy 10 years ago or so. CAT scan shows a small liver lesion likely representing hemangioma. She has a large right renal cyst measuring 9 cm. A small amount of fluid in the right paracolic gutter is noted. Patient has no documented history of appendectomy however appendix not visualized on today's study. The patient's bowel was described as normal however there does appear to be some wall thickening throughout the sigmoid extending towards the rectum. No surrounding inflammatory changes. Review of Systems The patient denies any acute changes in vision or hearing, no dysphagia or odynophagia, no chest pain or shortness of breath, no dysuria or hematuria, no headache, no runny nose, no rectal bleeding or melena, no unexplained weight loss 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, ovarian cyst History of Any Multi-Drug Resistant Organisms: MRSA Year Discovered:: 08/14/17 MDRO Source:: face Past Surgical History: Cholecystectomy Additional Past Surgical History / Comment(s): mass removed left breast and left neck - all benign Past Anesthesia/Blood Transfusion Reactions: No Reported Reaction Past Psychological History: No Psychological Hx Reported Smoking Status: Never smoker, Vaper Past Alcohol Use History: Occasional Past Drug Use History: None Reported - Past Family History Father Family Medical History: Cancer Additional Family Medical History / Comment(s): colon cancer Mother Family Medical History: No Reported History Medications and Allergies Home Medications Medication Instructions Recorded Confirmed Type Multivitamins, Thera [Multivitamin 1 tab PO DAILY 01/19/17 02/06/24 History (formulary)] Insulin Aspart (For Pump) [NovoLOG 0.01 unit SQ-PUMP CONTINUOUS 02/06/24 02/06/24 History (For Pump)] Allergies Allergy/AdvReac Type Severity Reaction Status Date / Time doxycycline Allergy Rash/Hives Verified 02/06/24 14:10 Sulfa (Sulfonamide Allergy Rash/Hives Verified 02/06/24 14:10 Antibiotics) Surgical - Exam Vital Signs Temp Pulse Resp BP Pulse Ox 97.3 F L 95 18 138/82 97 02/06/24 09:34 02/06/24 09:34 02/06/24 09:34 02/06/24 09:34 02/06/24 09:34 Physical exam: General: Well-developed, well-nourished HEENT: Normocephalic, sclerae nonicteric Abdomen: Mild suprapubic and left lower quadrant tenderness, nondistended Extremities: No edema Neuro: Alert and oriented Results - Labs 02/07/24 05:37 02/07/24 05:37 Abnormal Lab Results - Last 24 Hours (Table) 02/07/24 Range/Units 05:37 Sodium 136 L (137-145) mmol/L Chloride 109 H (98-107) mmol/L BUN 6 L (7-17) mg/dL Calcium 8.0 L (8.4-10.2) mg/dL Total Bilirubin 1.9 H (0.2-1.3) mg/dL AST 269 H (14-36) U/L ALT 159 H (4-34) U/L Total Protein 5.6 L (6.3-8.2) g/dL Albumin 3.1 L (3.5-5.0) g/dL Diabetes panel 02/07/24 Range/Units 05:37 Sodium 136 L (137-145) mmol/L Potassium 4.1 (3.5-5.1) mmol/L Chloride 109 H (98-107) mmol/L Carbon Dioxide 22 (22-30) mmol/L BUN 6 L (7-17) mg/dL Creatinine 0.62 (0.52-1.04) mg/dL Glucose 83 (74-99) mg/dL Calcium 8.0 L (8.4-10.2) mg/dL AST 269 H (14-36) U/L ALT 159 H (4-34) U/L Alkaline Phosphatase 107 (38-126) U/L Total Protein 5.6 L (6.3-8.2) g/dL Albumin 3.1 L (3.5-5.0) g/dL Calcium panel 02/07/24 Range/Units 05:37 Calcium 8.0 L (8.4-10.2) mg/dL Albumin 3.1 L (3.5-5.0) g/dL Pituitary panel 02/07/24 Range/Units 05:37 Sodium 136 L (137-145) mmol/L Potassium 4.1 (3.5-5.1) mmol/L Chloride 109 H (98-107) mmol/L Carbon Dioxide 22 (22-30) mmol/L BUN 6 L (7-17) mg/dL Creatinine 0.62 (0.52-1.04) mg/dL Glucose 83 (74-99) mg/dL Calcium 8.0 L (8.4-10.2) mg/dL Adrenal panel 02/07/24 Range/Units 05:37 Sodium 136 L (137-145) mmol/L Potassium 4.1 (3.5-5.1) mmol/L Chloride 109 H (98-107) mmol/L Carbon Dioxide 22 (22-30) mmol/L BUN 6 L (7-17) mg/dL Creatinine 0.62 (0.52-1.04) mg/dL Glucose 83 (74-99) mg/dL Calcium 8.0 L (8.4-10.2) mg/dL Total Bilirubin 1.9 H (0.2-1.3) mg/dL AST 269 H (14-36) U/L ALT 159 H (4-34) U/L Alkaline Phosphatase 107 (38-126) U/L Total Protein 5.6 L (6.3-8.2) g/dL Albumin 3.1 L (3.5-5.0) g/dL Assessment and Plan (1) Colitis Narrative/Plan: 43-year-old female with lower abdominal pain and mucousy stools. Treat for mild colitis/possible diverticulitis. Monitor elevated liver enzymes. Keep in mind the CAT scan findings of pericolic fluid right side of abdomen with nonvisualization of the appendix. May have liquid diet. Continue antibiotics. Will follow. Current Visit: Yes Status: Acute Code(s): K52.9 - NONINFECTIVE GASTROENTERITIS AND COLITIS, UNSPECIFIED SNOMED Code(s): 53558784
--- NOTE | 2024-02-07 12:24 | P.HPIM ---
History of Present Illness H&P Date: 02/07/24 Chief Complaint: Abdominal pain This is a pleasant 43-year-old patient, follows with Dr. Maurilio Tipton. Patient has diabetes mellitus type 1 on insulin pump. She does follow with the clinic of Dr. Liao compliance review specialist. About a month ago patient noticed that she started having abdominal discomfort described as a bruising. Her Accu-Cheks are uncontrolled. Trouble with insurance and coverage. She did get admitted to the ER with the DKA. For the last month patient continues to have this pain sensation across the abdomen. Has a bowel movement every 3 to 4 days. Mucousy. Nauseated all the time. Poor appetite. Has been losing weight. Finally decided to come in. Denies any fever and chills. Review of systems: GEN.: Decreased appetite, weight loss EYES: None HEENT: None NECK: None RESPIRATORY: None CARDIOVASCULAR: None GASTROINTESTINAL: As above] GENITOURINARY: None MUSCULOSKELETAL: None LYMPHATICS: None HEMATOLOGICAL: None PSYCHIATRY: None NEUROLOGICAL: None Social history: Lives with 2 daughters ages 20 and 17. [facility] the [facility] locally. Smokes occasionally. No alcohol. Physical examination: VITAL SIGNS: 98.4, 76, 18, 112 x 76, 98% room air GENERAL: BMI 31.5, laying in bed awake not in distress EYES: Pupils equal. Conjunctiva marybel l. HEENT: External appearance of nose and ears normal, oral cavity grossly normal. NECK: JVD not raised; masses not palpable. HEART: First and second heart sounds are normal; no edema. LUNGS: Respiratory rate normal; clear to auscultation. ABDOMEN: Soft, mid abdomen diffuse tenderness, liver spleen not palpable, no masses palpable. PSYCH: Alert and oriented x3; mood and affect marybel l. MUSCULOSKELETAL:No Clubbing/cyanosis;muscles-grossly intact NEUROLOGICAL: Cranial nerves grossly intact; no facial asymmetry, power and sensation grossly intact. LYMPHATICS: No lymph nodes palpable in the axilla and neck INVESTIGATIONS, reviewed in the clinical context: February 06: White count 7.5 hemoglobin 13.5 platelets 207 sodium 136 potassium 4.1 creatinine 0.62 AST 269 ALT 159 February 05 white count 15.7 hemoglobin 15.7 platelets 283 sodium 136 potassium 4.2 BUN 9 creatinine 0.6 AST 19 ALT 13 amylase [address] scan abdomen pelvis with contrast hypodensity within the lateral lobe left liver. Possible hemangioma. Gallbladder absent Assessment plan: -Acute on chronic abdominal pain. Patient's symptoms started about a month ago. Described as a generalized bruising. Patient is a decreased appetite. Mucousy bowel movement. Sometimes will have a bowel movement every 3 to 4 days. Hard. Has lost some weight. Decreased appetite GI services not available in the hospital. General surgery consulted. Patient will need a colonoscopy at some point. Infectious etiology needs to be ruled out. Also conditions like microscopic colitis. Empirically on IV Unasyn and IV Flagyl. -Diabetes mellitus type 1, on insulin pump. Patient manages her own. Patient follows at the office of Dr. Liao -Acute hepatitis. LFTs were normal yesterday. Check acute hepatitis profile. Repeat labs. -Obesity BMI 31.5 Weight loss measures. -Full code Discussed with patient. Given the complexity and severity of patient's condition expect the patient to be in the hospital at least for 2 overnights 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, ovarian cyst History of Any Multi-Drug Resistant Organisms: MRSA Date of last positivie culture/infection: 08/14/17 MDRO Source:: face Past Surgical History: Cholecystectomy Additional Past Surgical History / Comment(s): mass removed left breast and left neck - all benign Past Anesthesia/Blood Transfusion Reactions: No Reported Reaction Past Psychological History: No Psychological Hx Reported Smoking Status: Never smoker, Vaper Past Alcohol Use History: Occasional Past Drug Use History: None Reported - Past Family History Father Family Medical History: Cancer Additional Family Medical History / Comment(s): colon cancer Mother Family Medical History: No Reported History Medications and Allergies Home Medications Medication Instructions Recorded Confirmed Type Multivitamins, Thera [Multivitamin 1 tab PO DAILY 01/19/17 02/06/24 History (formulary)] Insulin Aspart (For Pump) [NovoLOG 0.01 unit SQ-PUMP CONTINUOUS 02/06/24 02/06/24 History (For Pump)] Allergies Allergy/AdvReac Type Severity Reaction Status Date / Time doxycycline Allergy Rash/Hives Verified 02/06/24 14:10 Sulfa (Sulfonamide Allergy Rash/Hives Verified 02/06/24 14:10 Antibiotics) Physical Exam Vitals: Vital Signs Temp Pulse Resp BP Pulse Ox 02/07/24 07:42 98.4 F 76 18 112/76 99 02/07/24 04:00 83 18 110/72 98 02/06/24 23:24 61 16 101/65 97 02/06/24 20:14 98.9 F 74 18 137/85 97 Results CBC & Chem 7: 02/07/24 05:37 02/07/24 05:37 Labs: Abnormal Lab Results - Last 24 Hours (Table) 02/06/24 02/06/24 02/07/24 Range/Units 10:08 10:08 05:37 WBC 15.7 H (3.8-10.6) k/uL Hct 49.3 H (34.0-46.0) % Neutrophils # 12.0 H (1.3-7.7) k/uL Sodium 136 L 136 L (137-145) mmol/L Chloride 108 H 109 H (98-107) mmol/L Carbon Dioxide 20 L (22-30) mmol/L BUN 6 L (7-17) mg/dL Glucose 177 H (74-99) mg/dL Calcium 8.0 L (8.4-10.2) mg/dL Total Bilirubin 1.9 H (0.2-1.3) mg/dL AST 269 H (14-36) U/L ALT 159 H (4-34) U/L Total Protein 5.6 L (6.3-8.2) g/dL Albumin 3.1 L (3.5-5.0) g/dL
[2024-02-07 16:06] LABS: Glucose,Whole Blood 167 mg/dL (70-110)
[2024-02-07 17:19] LABS: Glucose,Whole Blood 134 mg/dL (70-110)
[2024-02-07] MEDS: metroNIDAZOLE-NS PMX 500 MG in SALINE 1 100ML.BAG IVPB SCH (17:22)
[2024-02-07 20:07] LABS: Glucose,Whole Blood 194 mg/dL (70-110)
[2024-02-07 23:21] LABS: Hepatitis A Antibody IgM Nonreactive (Nonreactive); Hepatitis B Core IgM Nonreactive (Nonreactive); Hepatitis B Surface Antigen Nonreactive (Nonreactive); Hepatitis C IgG Antibody Nonreactive (Nonreactive)
[2024-02-08 07:20] LABS: Glucose,Whole Blood 167 mg/dL (70-110)
[2024-02-08 07:55] LABS: Basophils # (A) 0.1 k/uL (0-0.2); Basophils % (A) 1 %; Eosinophils # (A) 0.5 k/uL (0-0.7); Eosinophils % (A) 7 %; HGB 13.7 gm/dL (11.4-16.0); Lymphocytes # (A) 2.3 k/uL (1.0-4.8); Lymphocytes % (A) 33 %; MCH 30.7 pg (25.0-35.0); MCHC 31.8 g/dL (31.0-37.0); MCV 96.4 fL (80.0-100.0); Mean Platelet Volume 9.4; Monocytes # (A) 0.4 k/uL (0-1.0); Monocytes % (A) 6 %; Neutrophils # (A) 3.5 k/uL (1.3-7.7); Neutrophils % (A) 51 %; Platelet Count 233 k/uL (150-450); RBC 4.47 m/uL (3.80-5.40); RDW 12.2 % (11.5-15.5); WBC 6.9 k/uL (3.8-10.6)
[2024-02-08 08:17] LABS: ALT 147 U/L (4-34); AST 104 U/L (14-36); African American GFR (CKD) >90 (>60 ml/min/1.73 sqM); Albumin 3.2 g/dL (3.5-5.0); Albumin/Globulin Ratio 1.2; Alkaline Phosphatase 140 U/L (38-126); Anion Gap 7 mmol/L; Blood Urea Nitrogen 5 mg/dL (7-17); Calcium 7.8 mg/dL (8.4-10.2); Carbon Dioxide 17 mmol/L (22-30); Chloride 112 mmol/L (98-107); Globulin 2.7 g/dL; Glucose 164 mg/dL (74-99); Non-African American GFR(CKD) >90 (>60 ml/min/1.73 sqM); Potassium 4.2 mmol/L (3.5-5.1); Sodium 136 mmol/L (137-145); Total Bilirubin 1.3 mg/dL (0.2-1.3); Total Protein 5.9 g/dL (6.3-8.2)
[2024-02-08 11:53] LABS: Glucose,Whole Blood 196 mg/dL (70-110)
[2024-02-08] MEDS: ONDANSETRON 4 MG/2 ML VIAL IVP PRN (14:36)
--- NOTE | 2024-02-08 15:31 | P.PN ---
Subjective Progress Note Date: 02/08/24 CHIEF COMPLAINT: Abdominal pain HISTORY OF PRESENT ILLNESS: Patient continues to complain of lower abdominal pain. She is now reporting pain in the right lower back. She reports nausea no vomiting. Patient reports pain will get up to 8 out of 10 and when she receives the pain medications it is a 0 out of 10. She reports mucousy stools on and Thursday. Since then has not had no bowel movements. She denies any flatus. Afebrile. WBC 6.9 Hgb 13.7 platelets 233 total bilirubin is down from 1.9-1.3 LFTs trending down alk phos 140 PHYSICAL EXAM: VITAL SIGNS: Reviewed. GENERAL: Well-developed in no acute distress. ABDOMEN: Soft. Nondistended. Tenderness to palpation in the lower abdomen mostly in the suprapubic and right lower quadrant NEUROLOGIC: Alert and oriented. Cranial nerves II through XII grossly intact. ASSESSMENT: 1. Colitis or possible diverticulitis. Patient with lower abdominal pain and mucousy stools 2. Elevated liver enzymes trending down PLAN: -Continue to observe -Continue follow-up with diet -Continue antibiotics Physician Health Services Information Specialist note has been reviewed by physician. Signing provider agrees with the documented findings, assessment, and plan of care. Objective - Vital Signs Vital signs: Vital Signs Temp 97.6 F 02/08/24 12:53 Pulse 79 02/08/24 12:53 Resp 17 02/08/24 12:53 BP 114/72 02/08/24 12:53 Pulse Ox 98 02/08/24 12:53 FiO2 Intake & Output 02/07/24 02/08/24 02/08/24 18:59 06:59 18:59 Intake Total 240 1840 Balance 240 1840 Intake: Intake, IV Titration 1600 Amount Ampicillin-Sulbactam 1.5 200 gm In Sodium Chloride 0.9 % 50 ml @ 100 mls/hr IVPB Q6HR [facility] Rx#:[id number] Sodium Chloride 0.9% 1, 1200 000 ml @ 130 mls/hr IV . Q7H42M [facility] Rx#:[id number] metroNIDAZOLE-NS PMX 500 200 mg In Saline 1 100ml.bag @ 100 mls/hr IVPB Q8HR [facility] Rx#:[id number] Oral 240 240 Other: Voiding Method Toilet Toilet Toilet # Voids 2 3 1 - Labs CBC & Chem 7: 02/08/24 07:13 02/08/24 07:13 Labs: Abnormal Lab Results - Last 24 Hours (Table) 02/07/24 02/07/24 02/07/24 Range/Units 16:05 17:17 20:06 Sodium (137-145) mmol/L Chloride (98-107) mmol/L Carbon Dioxide (22-30) mmol/L BUN (7-17) mg/dL Creatinine (0.52-1.04) mg/dL Glucose (74-99) mg/dL POC Glucose (mg/dL) 167 H 134 H 194 H (70-110) mg/dL Calcium (8.4-10.2) mg/dL AST (14-36) U/L ALT (4-34) U/L Alkaline Phosphatase (38-126) U/L Total Protein (6.3-8.2) g/dL Albumin (3.5-5.0) g/dL 02/08/24 02/08/24 02/08/24 Range/Units 07:13 07:19 11:51 Sodium 136 L (137-145) mmol/L Chloride 112 H (98-107) mmol/L Carbon Dioxide 17 L (22-30) mmol/L BUN 5 L (7-17) mg/dL Creatinine 0.51 L (0.52-1.04) mg/dL Glucose 164 H (74-99) mg/dL POC Glucose (mg/dL) 167 H 196 H (70-110) mg/dL Calcium 7.8 L (8.4-10.2) mg/dL AST 104 H (14-36) U/L ALT 147 H (4-34) U/L Alkaline Phosphatase 140 H (38-126) U/L Total Protein 5.9 L (6.3-8.2) g/dL Albumin 3.2 L (3.5-5.0) g/dL Microbiology - Last 24 Hours (Table) 02/06/24 14:15 Blood Culture - Preliminary Blood 02/06/24 13:42 Blood Culture - Preliminary Blood
--- NOTE | 2024-02-08 16:27 | P.PN ---
Progress Note - Text Progress Note Date: 02/08/24 Chief Complaint: Abdominal pain This is a pleasant 43-year-old patient, follows with Dr. Maurilio Tipton. Patient has diabetes mellitus type 1 on insulin pump. She does follow with the clinic of Dr. Liao air hose coupler. About a month ago patient noticed that she started having abdominal discomfort described as a bruising. Her Accu-Cheks are uncontrolled. Trouble with insurance and coverage. She did get admitted to the ER with the DKA. For the last month patient continues to have this pain sensation across the abdomen. Has a bowel movement every 3 to 4 days. Mucousy. Nauseated all the time. Poor appetite. Has been losing weight. Finally dec ided to come in. Denies any fever and chills. February 07: Continues to have mid abdominal pain. On IV antibiotics. Acute hepatitis panel negative. Some improvement in LFTs. Being followed by surgery. Will order Sandrine-Ndiaye virus panel. Active Medications Acetaminophen (Acetaminophen Tab 325 Mg Tab) 650 mg PO Q6HR PRN PRN Reason: Mild Pain or Fever > 100.5 Last Admin: 02/08/24 09:38 Dose: 650 mg Enoxaparin Sodium (Enoxaparin 40 Mg/0.4 Ml Syringe) 40 mg SQ DAILY [facility] Last Admin: 02/08/24 07:58 Dose: 40 mg Hydromorphone HCl (Hydromorphone 1 Mg/Ml 1 Ml Syringe) 1 mg IVP Q3HR PRN PRN Reason: Severe Pain (Scale 7 to 10) Last Admin: 02/08/24 02:58 Dose: 1 mg Hydromorphone HCl (Hydromorphone 0.5 Mg/0.5 Ml Syringe) 0.5 mg IVP Q3HR PRN PRN Reason: Moderate Pain (Scale 4 to 6) Last Admin: 02/08/24 09:39 Dose: 0.5 mg Ampicillin Sodium/Sulbactam (Sodium 1.5 gm/ Sodium Chloride) 50 mls @ 100 mls/hr IVPB Q6HR [facility]; Protocol Last Admin: 02/08/24 12:26 Dose: 100 mls/hr Metronidazole 500 mg/ IV (Solution) 100 mls @ 100 mls/hr IVPB Q8HR [facility]; Protocol Last Admin: 02/08/24 07:58 Dose: 100 mls/hr Sodium Bicarbonate 100 ml/ (Dextrose/Water) 1,100 mls @ 100 mls/hr IV .Q11H [facility] Naloxone HCl (Naloxone 0.4 Mg/Ml 1 Ml Vial) 0.2 mg IV Q2M PRN PRN Reason: Opioid Reversal Ondansetron HCl (Ondansetron 4 Mg/2 Ml Vial) 4 mg IVP Q6HR PRN PRN Reason: Nausea And Vomiting Last Admin: 02/08/24 14:36 Dose: 4 mg Pantoprazole Sodium (Pantoprazole 40 Mg/10 Ml Vial) 40 mg IV DAILY [facility] Last Admin: 02/08/24 07:53 Dose: 40 mg Social history: Lives with 2 daughters ages 20 and 17. 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 Smokes occasionally. No alcohol. Physical examination: VITAL SIGNS: 98.4, 76, 18, 112 x 76, 98% room air GENERAL: BMI 31.5, laying in bed awake not in distress EYES: Pupils equal. Conjunctiva marybel l. HEENT: External appearance of nose and ears normal, oral cavity grossly normal. NECK: JVD not raised; masses not palpable. HEART: First and second heart sounds are normal; no edema. LUNGS: Respiratory rate normal; clear to auscultation. ABDOMEN: Soft, mid abdomen diffuse tenderness, liver spleen not palpable, no masses palpable. PSYCH: Alert and oriented x3; mood and affect marybel l. INVESTIGATIONS, reviewed in the clinical context: February 07: White count 6.9 hemoglobin 13.7 platelets 233 sodium 136 potassium 4.2 bicarb 17 BUN 5 creatinine 0.51 AST 104 ALT 147. Procalcitonin 0.07 Hepatitis A IgM antibody, hepatitis B surface antigen, hepatitis B core IgM antibody, hepatitis C IgG antibody: All nonreactive February 06: White count 7.5 hemoglobin 13.5 platelets 207 sodium 136 potassium 4.1 creatinine 0.62 AST 269 ALT 159 February 05 white count 15.7 hemoglobin 15.7 platelets 283 sodium 136 potassium 4.2 BUN 9 creatinine 0.6 AST 19 ALT 13 amylase [address] scan abdomen pelvis with contrast hypodensity within the lateral lobe left liver. Possible hemangioma. Gallbladder absent Assessment plan: -Acute on chronic abdominal pain. Patient's symptoms started about a month ago. Described as a generalized bruising. Patient is a decreased appetite. Mucousy bowel movement. Sometimes will have a bowel movement every 3 to 4 days. Hard. Has lost some weight. Decreased appetite GI services not available in the hospital. General surgery/Dr. Harris consulted. Patient will need a colonoscopy at some point. Infectious etiology needs to be ruled out. Also conditions like microscopic colitis. Empirically on IV Unasyn and IV Flagyl. Continue with clear liquid diet -Diabetes mellitus type 1, on insulin pump. Patient manages her own. Patient follows at the office of Dr. Liao -Metabolic acidosis Start sodium bicarbonate drip -Acute hepatitis. LFTs were normal initially.: Improving Hepatitis panel negative Sandrine-Ndiaye virus panel ordered -Obesity BMI 31.5 Weight loss measures. -Full code Order Sandrine-Ndiaye virus panel. Clear liquid diet 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, ovarian cyst History of Any Multi-Drug Resistant Organisms: MRSA Date of last positivie culture/infection: 08/14/17 MDRO Source:: face Past Surgical History: Cholecystectomy Additional Past Surgical History / Comment(s): mass removed left breast and left neck - all benign Past Anesthesia/Blood Transfusion Reactions: No Reported Reaction Past Psychological History: No Psychological Hx Reported Smoking Status: Never smoker, Vaper Past Alcohol Use History: Occasional Past Drug Use History: None Reported
[2024-02-08 16:56] LABS: Glucose,Whole Blood 234 mg/dL (70-110)
[2024-02-08] MEDS: DEXTROSE 5% IN WATER 1,000 ML with SODIUM BICARB (1 MEQ/ML) 100 ML IV SCH (17:50)
[2024-02-08] MEDS: HYDROmorphone 1 MG/ML 1 ML SYRINGE IVP STA (18:44)
[2024-02-08] MEDS: KETOROLAC 15 MG/ML 1 ML VIAL IVP SCH (20:04)
[2024-02-08 20:31] LABS: Glucose,Whole Blood 337 mg/dL (70-110)
[2024-02-08] MEDS: ACETAMINOPHEN TAB 500 MG TAB PO PRN (20:56)
[2024-02-09 01:57] LABS: EBV-EA (IgG) <0.2 AI; EBV-EBNA(IgG) >8.0; EBV-VCA (IgG) >8.0 AI; EBV-VCA (IgM) 3.8 AI
[2024-02-09 06:20] LABS: ALT 98 U/L (4-34); AST 37 U/L (14-36); African American GFR (CKD) >90 (>60 ml/min/1.73 sqM); Albumin 3.1 g/dL (3.5-5.0); Albumin/Globulin Ratio 1.3; Alkaline Phosphatase 97 U/L (38-126); Anion Gap 7 mmol/L; Blood Urea Nitrogen 9 mg/dL (7-17); Calcium 8.3 mg/dL (8.4-10.2); Carbon Dioxide 15 mmol/L (22-30); Chloride 113 mmol/L (98-107); Globulin 2.3 g/dL; Glucose 130 mg/dL (74-99); Non-African American GFR(CKD) >90 (>60 ml/min/1.73 sqM); Potassium 4.1 mmol/L (3.5-5.1); Sodium 135 mmol/L (137-145); Total Bilirubin 0.6 mg/dL (0.2-1.3); Total Protein 5.4 g/dL (6.3-8.2)
[2024-02-09 07:14] LABS: Glucose,Whole Blood 127 mg/dL (70-110)
[2024-02-09 08:24] LABS: Basophils # (A) 0.05 X 10*3/uL (0.00-0.10); Basophils % (A) 0.5 %; Eosinophils # (A) 0.12 X 10*3/uL (0.04-0.35); Eosinophils % (A) 1.2 %; HGB 12.2 g/dL (12.0-15.0); Lymphocytes # (A) 2.08 X 10*3/uL (0.90-5.00); Lymphocytes % (A) 21.4 %; MCHC 33.9 g/dL (32.0-37.0); MCV 91.6 FL (80.0-97.0); Monocytes # (A) 0.85 X 10*3/uL (0.20-1.00); Monocytes % (A) 8.7 %; NRBC Per 100 WBC 0 X 10*3/uL (0.00-0.01); Neutrophils # (A) 6.61 X 10*3/uL (1.80-7.70); Platelet Count 258 X 10*3/uL (140-440); RBC 3.93 X 10*6/uL (4.10-5.20); RDW 12.1 % (11.5-14.5); WBC 9.73 X 10*3/uL (4.50-10.00)
--- NOTE | 2024-02-09 11:27 | P.PN ---
Subjective Progress Note Date: 02/09/24 CHIEF COMPLAINT: Abdominal pain HISTORY OF PRESENT ILLNESS: Patient reports she is feeling a little better today. She did have multiple episodes of vomiting yesterday. She reports her last episode of vomiting was around 8 PM. She reports improvement in her nausea. No further vomiting. She reports decreased appetite. Abdominal pain is improving. Currently right now does not have any back pain. She has had no bowel movement or flatus. Last mucousy stools Thursday. Afebrile. WBC 9.73 Hgb 12.2 platelets 258 sodium 135 potassium 4.1 creatinine 0.63 total bilirubin 0.6 LFTs trending down alk phos normal at 97 PHYSICAL EXAM: VITAL SIGNS: Reviewed. GENERAL: Well-developed in no acute distress. ABDOMEN: Soft. Nondistended. Mild tenderness with palpation across the lower abdomen NEUROLOGIC: Alert and oriented. Cranial nerves II through XII grossly intact. ASSESSMENT: 1. Colitis or possible diverticulitis. Patient with lower abdominal pain and mucousy stools 2. Elevated liver enzymes trending down PLAN: -Continue to observe -Continue clear liquid diet -Continue antibiotics -Encourage patient to ambulate Physician Application Development Team Lead note has been reviewed by physician. Signing provider agrees with the documented findings, assessment, and plan of care. Objective - Vital Signs Vital signs: Vital Signs Temp 98.8 F 02/09/24 07:15 Pulse 81 02/09/24 07:15 Resp 20 02/09/24 07:15 BP 96/56 02/09/24 07:15 Pulse Ox 97 02/09/24 07:15 FiO2 Intake & Output 02/08/24 02/09/24 02/09/24 18:59 06:59 18:59 Other: Voiding Method Toilet Toilet # Voids 1 3 - Labs CBC & Chem 7: 02/09/24 05:31 02/09/24 05:31 Labs: Abnormal Lab Results - Last 24 Hours (Table) 02/08/24 02/08/24 02/08/24 Range/Units 07:13 11:51 16:55 RBC (4.10-5.20) X 10*6/uL Hct (37.2-46.3) % Sodium (137-145) mmol/L Chloride (98-107) mmol/L Carbon Dioxide (22-30) mmol/L Glucose (74-99) mg/dL POC Glucose (mg/dL) 196 H 234 H (70-110) mg/dL Calcium (8.4-10.2) mg/dL AST (14-36) U/L ALT (4-34) U/L Total Protein (6.3-8.2) g/dL Albumin (3.5-5.0) g/dL EBV Capsid Ag IgG Intrp Positive A (Negative) EBV Capsid Ag IgM Intrp Positive A (Negative) EBV Nuc Ag IgG Interp Positive A (Negative) 02/08/24 02/09/24 02/09/24 Range/Units 20:25 05:31 05:31 RBC 3.93 L (4.10-5.20) X 10*6/uL Hct 36.0 L (37.2-46.3) % Sodium 135 L (137-145) mmol/L Chloride 113 H (98-107) mmol/L Carbon Dioxide 15 L (22-30) mmol/L Glucose 130 H (74-99) mg/dL POC Glucose (mg/dL) 337 H (70-110) mg/dL Calcium 8.3 L (8.4-10.2) mg/dL AST 37 H (14-36) U/L ALT 98 H (4-34) U/L Total Protein 5.4 L (6.3-8.2) g/dL Albumin 3.1 L (3.5-5.0) g/dL EBV Capsid Ag IgG Intrp (Negative) EBV Capsid Ag IgM Intrp (Negative) EBV Nuc Ag IgG Interp (Negative) 02/09/24 Range/Units 07:13 RBC (4.10-5.20) X 10*6/uL Hct (37.2-46.3) % Sodium (137-145) mmol/L Chloride (98-107) mmol/L Carbon Dioxide (22-30) mmol/L Glucose (74-99) mg/dL POC Glucose (mg/dL) 127 H (70-110) mg/dL Calcium (8.4-10.2) mg/dL AST (14-36) U/L ALT (4-34) U/L Total Protein (6.3-8.2) g/dL Albumin (3.5-5.0) g/dL EBV Capsid Ag IgG Intrp (Negative) EBV Capsid Ag IgM Intrp (Negative) EBV Nuc Ag IgG Interp (Negative) Microbiology - Last 24 Hours (Table) 02/06/24 14:15 Blood Culture - Preliminary Blood 02/06/24 13:42 Blood Culture - Preliminary Blood
[2024-02-09 12:12] LABS: Glucose,Whole Blood 114 mg/dL (70-110)
--- NOTE | 2024-02-09 16:22 | P.PN ---
Progress Note - Text Progress Note Date: 02/09/24 Chief Complaint: Abdominal pain This is a pleasant 43-year-old patient, follows with Dr. Maurilio Tipton. Patient has diabetes mellitus type 1 on insulin pump. She does follow with the clinic of Dr. Liao municipal court judge. About a month ago patient noticed that she started having abdominal discomfort described as a bruising. Her Accu-Cheks are uncontrolled. Trouble with insurance and coverage. She did get admitted to the ER with the DKA. For the last month patient continues to have this pain sensation across the abdomen. Has a bowel movement every 3 to 4 days. Mucousy. Nauseated all the time. Poor appetite. Has been losing weight. Finally dec ided to come in. Denies any fever and chills. February 07: Continues to have mid abdominal pain. On IV antibiotics. Acute hepatitis panel negative. Some improvement in LFTs. Being followed by surgery. Will order Sandrine-Ndiaye virus panel. February 08: Patient stated she had rather severe different kind of pain yesterday. More in the right flank. Went up to the back shoulder. It went down the legs. Her mid abdominal pain actually is much better. No diarrhea. Remains on clear liquid. Remains on sodium bicarbonate drip. Will change diet to full liquid. Sandrine-Ndiaye virus capsid antigen IgG came back positive so to the IgM. LFTs are coming down. Patient denies any pharyngeal symptoms. No fever reported d. Given that ampicillin can give rash with EBV. Will stop Unasyn Active Medications Acetaminophen (Acetaminophen Tab 500 Mg Tab) 1,000 mg PO Q6HR PRN PRN Reason: Fever and/ or Pain Last Admin: 02/09/24 11:25 Dose: 1,000 mg Enoxaparin Sodium (Enoxaparin 40 Mg/0.4 Ml Syringe) 40 mg SQ DAILY [facility] Last Admin: 02/09/24 08:57 Dose: 40 mg Famotidine (Famotidine 20 Mg Tab) 20 mg PO BID [facility] Hydromorphone HCl (Hydromorphone 1 Mg/Ml 1 Ml Syringe) 1 mg IVP Q3HR PRN PRN Reason: Severe Pain (Scale 7 to 10) Last Admin: 02/08/24 02:58 Dose: 1 mg Hydromorphone HCl (Hydromorphone 0.5 Mg/0.5 Ml Syringe) 0.5 mg IVP Q3HR PRN PRN Reason: Moderate Pain (Scale 4 to 6) Last Admin: 02/08/24 17:55 Dose: 0.5 mg Ampicillin Sodium/Sulbactam (Sodium 1.5 gm/ Sodium Chloride) 50 mls @ 100 mls/hr IVPB Q6HR [facility]; Protocol Last Admin: 02/09/24 12:19 Dose: 100 mls/hr Metronidazole 500 mg/ IV (Solution) 100 mls @ 100 mls/hr IVPB Q8HR [facility]; Protocol Last Admin: 02/09/24 08:55 Dose: 100 mls/hr Sodium Bicarbonate 100 ml/ (Dextrose/Water) 1,100 mls @ 100 mls/hr IV .Q11H [facility] Last Admin: 02/09/24 05:40 Dose: 100 mls/hr Ketorolac Tromethamine (Ketorolac 15 Mg/Ml 1 Ml Vial) 15 mg IVP Q6HR [facility] Stop: 02/13/24 19:45 Last Admin: 02/09/24 12:19 Dose: 15 mg Naloxone HCl (Naloxone 0.4 Mg/Ml 1 Ml Vial) 0.2 mg IV Q2M PRN PRN Reason: Opioid Reversal Ondansetron HCl (Ondansetron 4 Mg/2 Ml Vial) 4 mg IVP Q6HR PRN PRN Reason: Nausea And Vomiting Last Admin: 02/09/24 02:35 Dose: 4 mg Social history: Lives with 2 daughters ages 20 and 17. 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 Smokes occasionally. No alcohol. Physical examination: VITAL SIGNS: 98, 69, 18, 122 x 75, 99% room air GENERAL: Laying in bed a bit tired EYES: Pupils equal. Conjunctiva marybel l. HEENT: External appearance of nose and ears normal, oral cavity grossly normal. NECK: JVD not raised; masses not palpable. HEART: First and second heart sounds are normal; no edema. LUNGS: Respiratory rate normal; clear to auscultation. ABDOMEN: Soft, improved mid abdomen tenderness, liver spleen not palpable, no masses palpable. PSYCH: Alert and oriented x3; mood and affect marybel l. INVESTIGATIONS, reviewed in the clinical context: February 08: White count 9.7 hemoglobin 12.2 platelets 258 sodium 135 potassium 4.1 bicarb 15 creatinine 0.63 AST 37 ALT 98. Procalcitonin 0.07 Sandrine-Ndiaye virus: Capsid antigen IgG positive capsid antigen IgM 3.8 capsid antigen IgM positive Sandrine-Ndiaye virus early antigen IgG negative nuclear antigen IgG positive February 07: White count 6.9 hemoglobin 13.7 platelets 233 sodium 136 potassium 4.2 bicarb 17 BUN 5 creatinine 0.51 AST 104 ALT 147. Procalcitonin 0.07 Hepatitis A IgM antibody, hepatitis B surface antigen, hepatitis B core IgM antibody, hepatitis C IgG antibody: All nonreactive February 06: White count 7.5 hemoglobin 13.5 platelets 207 sodium 136 potassium 4.1 creatinine 0.62 AST 269 ALT 159 February 05 white count 15.7 hemoglobin 15.7 platelets 283 sodium 136 potassium 4.2 BUN 9 creatinine 0.6 AST 19 ALT 13 amylase [address] scan abdomen pelvis with contrast hypodensity within the lateral lobe left liver. Possible hemangioma. Gallbladder absent Assessment plan: -Acute on chronic abdominal pain. Patient's symptoms started about a month ago. Described as a generalized bruising. Patient is a decreased appetite. Mucousy bowel movement. Sometimes will have a bowel movement every 3 to 4 days. Hard. Has lost some weight. Decreased appetite. This could be an Sandrine-Ndiaye virus infection. Patient's IgM is positive. Patient denies any obvious upper respite tract infection or pharyngeal symptoms. Acute hepatitis could be a manifestation of the same. GI services not available in the hospital. General surgery/Dr. Harris consulted. Patient will need a colonoscopy at some point. Empirically on IV Unasyn and IV Flagyl.-Stop Unasyn. Procalcitonin is normal Changed diet to full liquid -Diabetes mellitus type 1, on insulin pump. Patient manages her own. Patient follows at the office of Dr. Liao -Metabolic acidosis Continue sodium bicarbonate drip -Acute hepatitis. LFTs were normal initially.: From Sandrine-Ndiaye virus acute infection: Improving Acute hepatitis panel negative -Obesity BMI 31.5 Weight loss measures. -Full code Changed to full liquid diet. Stop Unasyn. Increase activity. 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, ovarian cyst History of Any Multi-Drug Resistant Organisms: MRSA Date of last positivie culture/infection: 08/14/17 MDRO Source:: face Past Surgical History: Cholecystectomy Additional Past Surgical History / Comment(s): mass removed left breast and left neck - all benign Past Anesthesia/Blood Transfusion Reactions: No Reported Reaction Past Psychological History: No Psychological Hx Reported Smoking Status: Never smoker, Vaper Past Alcohol Use History: Occasional Past Drug Use History: None Reported
[2024-02-09 17:14] LABS: Glucose,Whole Blood 103 mg/dL (70-110)
[2024-02-09 20:16] LABS: Glucose,Whole Blood 133 mg/dL (70-110)
[2024-02-09] MEDS: FAMOTIDINE 20 MG TAB PO SCH (20:45)
[2024-02-10 07:20] LABS: Glucose,Whole Blood 117 mg/dL (70-110)
[2024-02-10 08:01] LABS: ALT 103 U/L (4-34); AST 115 U/L (14-36); African American GFR (CKD) >90 (>60 ml/min/1.73 sqM); Albumin 2.9 g/dL (3.5-5.0); Albumin/Globulin Ratio 1.2; Alkaline Phosphatase 91 U/L (38-126); Anion Gap 5 mmol/L; Blood Urea Nitrogen 6 mg/dL (7-17); Calcium 8.1 mg/dL (8.4-10.2); Carbon Dioxide 21 mmol/L (22-30); Chloride 112 mmol/L (98-107); Globulin 2.5 g/dL; Glucose 103 mg/dL (74-99); Non-African American GFR(CKD) >90 (>60 ml/min/1.73 sqM); Potassium 3.3 mmol/L (3.5-5.1); Sodium 138 mmol/L (137-145); Total Bilirubin 0.6 mg/dL (0.2-1.3); Total Protein 5.4 g/dL (6.3-8.2)
[2024-02-10] MEDS: DOCUSATE 100 MG CAP PO SCH (11:46)
[2024-02-10] MEDS: MAGNESIUM OXIDE 400 MG TAB PO SCH (11:58)
[2024-02-10] MEDS: POTASSIUM CHLORIDE ER 20 MEQ TAB.ER PO STA (11:58)
[2024-02-10] MEDS: SODIUM BICARBONATE TAB 650 MG TAB PO SCH (11:58)
[2024-02-10 12:41] LABS: Glucose,Whole Blood 102 mg/dL (70-110)
--- NOTE | 2024-02-10 14:04 | P.PN ---
Subjective Progress Note Date: 02/10/24 CHIEF COMPLAINT: Abdominal pain HISTORY OF PRESENT ILLNESS: Patient reports she is feeling better today. She did have dry heaves earlier this morning. She still has had no bowel movement or flatus. She reports improvement in her abdominal pain. Afebrile. Sodium 138 potassium 3.3 creatinine 0.55 LFTs are ALT AST 115 ALT 103 total bili 0.6 Sandrine-Ndiaye virus, IgM positive PHYSICAL EXAM: VITAL SIGNS: Reviewed. GENERAL: Well-developed in no acute distress. ABDOMEN: Soft. Nondistended. Nontender NEUROLOGIC: Alert and oriented. Cranial nerves II through XII grossly intact. ASSESSMENT: 1. Colitis or possible diverticulitis. Patient with lower abdominal pain and mucousy stools 2. Elevated liver enzymes. Possibly related to Sandrine-Ndiaye virus. Possibly related to medications. Medicine service has discontinued Unasyn and Tylenol PLAN: -Continue to monitor -Medicine service has advance diet to consistent carbohydrate chopped -Encourage patient to ambulate -Continue Flagyl -Repeat LFTs in a.m. Physician Mac Developer note has been reviewed by physician. Signing provider agrees with the documented findings, assessment, and plan of care. I have personally seen and examined the patient, reviewed the MEDICAL SCREENER /PAs history, exam and MDM and agree with the assessment and plan as written. Based on total visit time, I have performed more than 50% of the visit. As above: Patient says she feels well today. No abdominal pain since 24 to 40 hours ago. No bowel movement. Tolerating diet. Liver enzymes noted. Case discussed on a few occasions with Dr. Avendaño. Some of her symptoms certainly could be explained by a systemic viral illness. No plans for immediate colonoscopy or MRCP unless symptoms/labs change. Plan repeat blood work tomorrow. If improved stable for discharge with outpatient follow-up. Objective - Vital Signs Vital signs: Vital Signs Temp 98 F 02/10/24 13:03 Pulse 66 02/10/24 13:03 Resp 18 02/10/24 13:03 BP 123/82 02/10/24 13:03 Pulse Ox 96 02/10/24 13:03 FiO2 Intake & Output 02/09/24 02/10/24 02/10/24 18:59 06:59 18:59 Intake Total 1550 1100 Balance 1550 1100 Intake: Intake, IV Titration 950 1100 Amount Ampicillin-Sulbactam 1.5 50 gm In Sodium Chloride 0.9 % 50 ml @ 100 mls/hr IVPB Q6HR [facility] Rx#:[id number] Dextrose 5% in Water 1, 700 1000 000 ml @ 100 mls/hr IV . Q11H [facility] with Sodium Bicarb (1 Meq/ml) 100 ml Rx#:[id number] metroNIDAZOLE-NS PMX 500 200 100 mg In Saline 1 100ml.bag @ 100 mls/hr IVPB Q8HR [facility] Rx#:[id number] Oral 600 Other: Voiding Method Toilet Toilet - Labs CBC & Chem 7: 02/09/24 05:31 02/10/24 06:34 Labs: Abnormal Lab Results - Last 24 Hours (Table) 02/09/24 02/10/24 02/10/24 Range/Units 20:14 06:34 06:34 Potassium 3.3 L (3.5-5.1) mmol/L Chloride 112 H (98-107) mmol/L Carbon Dioxide 21 L (22-30) mmol/L BUN 6 L (7-17) mg/dL Glucose 103 H (74-99) mg/dL POC Glucose (mg/dL) 133 H (70-110) mg/dL Calcium 8.1 L (8.4-10.2) mg/dL AST 115 H (14-36) U/L ALT 103 H (4-34) U/L Total Protein 5.4 L (6.3-8.2) g/dL Albumin 2.9 L (3.5-5.0) g/dL Procalcitonin 0.40 H (0.02-0.09) ng/mL 02/10/24 Range/Units 07:16 Potassium (3.5-5.1) mmol/L Chloride (98-107) mmol/L Carbon Dioxide (22-30) mmol/L BUN (7-17) mg/dL Glucose (74-99) mg/dL POC Glucose (mg/dL) 117 H (70-110) mg/dL Calcium (8.4-10.2) mg/dL AST (14-36) U/L ALT (4-34) U/L Total Protein (6.3-8.2) g/dL Albumin (3.5-5.0) g/dL Procalcitonin (0.02-0.09) ng/mL Microbiology - Last 24 Hours (Table) 02/06/24 14:15 Blood Culture - Preliminary Blood 02/06/24 13:42 Blood Culture - Preliminary Blood
[2024-02-10 17:18] LABS: Glucose,Whole Blood 141 mg/dL (70-110)
[2024-02-10] MEDS: metroNIDAZOLE 500 MG TAB PO SCH (17:44)
--- NOTE | 2024-02-10 17:47 | P.PN ---
Progress Note - Text Progress Note Date: 02/10/24 Chief Complaint: Abdominal pain This is a pleasant 43-year-old patient, follows with Dr. Maurilio Tipton. Patient has diabetes mellitus type 1 on insulin pump. She does follow with the clinic of Dr. Liao state game warden. About a month ago patient noticed that she started having abdominal discomfort described as a bruising. Her Accu-Cheks are uncontrolled. Trouble with insurance and coverage. She did get admitted to the ER with the DKA. For the last month patient continues to have this pain sensation across the abdomen. Has a bowel movement every 3 to 4 days. Mucousy. Nauseated all the time. Poor appetite. Has been losing weight. Finally dec ided to come in. Denies any fever and chills. February 07: Continues to have mid abdominal pain. On IV antibiotics. Acute hepatitis panel negative. Some improvement in LFTs. Being followed by surgery. Will order Sandrine-Ndiaye virus panel. February 08: Patient stated she had rather severe different kind of pain yesterday. More in the right flank. Went up to the back shoulder. It went down the legs. Her mid abdominal pain actually is much better. No diarrhea. Remains on clear liquid. Remains on sodium bicarbonate drip. Will change diet to full liquid. Sandrine-Ndiaye virus capsid antigen IgG came back positive so to the IgM. LFTs are coming down. Patient denies any pharyngeal symptoms. No fever reported d. Given that ampicillin can give rash with EBV. Will stop Unasyn February 09: Patient labs and clinical context were discussed with the patient. Has had no bowel movement. Tolerated full liquids. Advance to chopped diet. Hold off any laxative as patient not really been eating. IV Unasyn was discontinued. Change Flagyl to p.o. That is giving some metallic taste. Has some increase in LFTs. Received 1 dose of 1000 mg Tylenol yesterday. Tylenol discontinued. Otherwise clinically looking much better. Patient did have infectious mononucleosis infection in her younger years. Bicarbonate drip being discontinued Active Medications Enoxaparin Sodium (Enoxaparin 40 Mg/0.4 Ml Syringe) 40 mg SQ DAILY [facility] Last Admin: 02/10/24 08:37 Dose: 40 mg Famotidine (Famotidine 20 Mg Tab) 20 mg PO BID [facility] Last Admin: 02/10/24 08:37 Dose: 20 mg Hydromorphone HCl (Hydromorphone 1 Mg/Ml 1 Ml Syringe) 1 mg IVP Q3HR PRN PRN Reason: Severe Pain (Scale 7 to 10) Last Admin: 02/08/24 02:58 Dose: 1 mg Hydromorphone HCl (Hydromorphone 0.5 Mg/0.5 Ml Syringe) 0.5 mg IVP Q3HR PRN PRN Reason: Moderate Pain (Scale 4 to 6) Last Admin: 02/08/24 17:55 Dose: 0.5 mg Ketorolac Tromethamine (Ketorolac 15 Mg/Ml 1 Ml Vial) 15 mg IVP Q6HR [facility] Stop: 02/13/24 19:45 Last Admin: 02/10/24 12:00 Dose: 15 mg Magnesium Oxide (Magnesium Oxide 400 Mg Tab) 400 mg PO BID [facility] Last Admin: 02/10/24 11:58 Dose: 400 mg Metronidazole (Metronidazole 500 Mg Tab) 500 mg PO TID [facility]; Protocol Naloxone HCl (Naloxone 0.4 Mg/Ml 1 Ml Vial) 0.2 mg IV Q2M PRN PRN Reason: Opioid Reversal Ondansetron HCl (Ondansetron 4 Mg/2 Ml Vial) 4 mg IVP Q6HR PRN PRN Reason: Nausea And Vomiting Last Admin: 02/10/24 05:24 Dose: 4 mg Sodium Bicarbonate (Sodium Bicarbonate Tab 650 Mg Tab) 650 mg PO TID [facility] Last Admin: 02/10/24 11:58 Dose: 650 mg Social history: Lives with 2 daughters ages 20 and 17. 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 Smokes occasionally. No alcohol. Physical examination: VITAL SIGNS: 98, 66, 16, 123/82, 96% room air GENERAL: Up in chair, looking better EYES: Pupils equal. Conjunctiva marybel l. HEENT: External appearance of nose and ears normal, oral cavity grossly normal. NECK: JVD not raised; masses not palpable. HEART: First and second heart sounds are normal; no edema. LUNGS: Respiratory rate normal; clear to auscultation. ABDOMEN: Soft, no abdomen tenderness, liver spleen not palpable, no masses pal pable. PSYCH: Alert and oriented x3; mood and affect marybel l. INVESTIGATIONS, reviewed in the clinical context: February 09: Potassium 3.3 bicarb 21 creatinine 0.55 AST 115 ALT 103 procalcitonin 0 .4 February 08: White count 9.7 hemoglobin 12.2 platelets 258 sodium 135 potassium 4.1 bicarb 15 creatinine 0.63 AST 37 ALT 98. Procalcitonin 0.07 Sandrine-Ndiaye virus: Capsid antigen IgG positive capsid antigen IgM 3.8 capsid antigen IgM positive Sandrine-Ndiaye virus early antigen IgG negative nuclear antigen IgG positive February 07: White count 6.9 hemoglobin 13.7 platelets 233 sodium 136 potassium 4.2 bicarb 17 BUN 5 creatinine 0.51 AST 104 ALT 147. Procalcitonin 0.07 Hepatitis A IgM antibody, hepatitis B surface antigen, hepatitis B core IgM antibody, hepatitis C IgG antibody: All nonreactive February 06: White count 7.5 hemoglobin 13.5 platelets 207 sodium 136 potassium 4.1 creatinine 0.62 AST 269 ALT 159 February 05 white count 15.7 hemoglobin 15.7 platelets 283 sodium 136 potassium 4.2 BUN 9 creatinine 0.6 AST 19 ALT 13 amylase [address] scan abdomen pelvis with contrast hypodensity within the lateral lobe left liver. Possible hemangioma. Gallbladder absent Assessment plan: -Acute on chronic abdominal pain. Patient's symptoms started about a month ago. Described as a generalized bruising. Patient is a decreased appetite. Mucousy bowel movement. Sometimes will have a bowel movement every 3 to 4 days. Hard. Has lost some weight. Decreased appetite. This could be an Sandrine-Ndiaye virus infection. Patient's IgM is positive. Patient denies any obvious upper respite tract infection or pharyngeal symptoms. Acute hepatitis could be a manifestation of the same. GI services not available in the hospital. General surgery/Dr. Harris consulted. Patient will need a colonoscopy at some point. Empirically on IV Unasyn and IV Flagyl.-Stop Unasyn. Tolerated full liquid diet. Changed to chopped diet. -Diabetes mellitus type 1, on insulin pump. Patient manages her own. Patient follows at the office of Dr. Liao -Metabolic acidosis Stop bicarbonate drip. Changed to oral sodium bicarbonate. -Acute hepatitis. LFTs were normal initially.: From Sandrine-Ndiaye virus acute infection: Improving Acute hepatitis panel negative Slight bump in liver enzymes. Did receive a dose of Tylenol yesterday. Discontinued -Obesity BMI 31.5 Weight loss measures. -Full code Discussed with patient. Stop bicarbonate drip. Change Flagyl to p.o. Repeat labs tomorrow. Hold off laxatives for now. Discussed with Dr. Harris. 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, ovarian cyst History of Any Multi-Drug Resistant Organisms: MRSA Date of last positivie culture/infection: 08/14/17 MDRO Source:: face Past Surgical History: Cholecystectomy Additional Past Surgical History / Comment(s): mass removed left breast and left neck - all benign Past Anesthesia/Blood Transfusion Reactions: No Reported Reaction Past Psychological History: No Psychological Hx Reported Smoking Status: Never smoker, Vaper Past Alcohol Use History: Occasional Past Drug Use History: None Reported
[2024-02-10 20:12] LABS: Glucose,Whole Blood 111 mg/dL (70-110)
[2024-02-11 07:08] LABS: ALT 118 U/L (4-34); AST 134 U/L (14-36); African American GFR (CKD) >90 (>60 ml/min/1.73 sqM); Albumin/Globulin Ratio 1.3; Alkaline Phosphatase 82 U/L (38-126); Anion Gap 6 mmol/L; Blood Urea Nitrogen 6 mg/dL (7-17); Calcium 8.4 mg/dL (8.4-10.2); Carbon Dioxide 20 mmol/L (22-30); Chloride 112 mmol/L (98-107); Globulin 2.4 g/dL; Glucose 112 mg/dL (74-99); Non-African American GFR(CKD) >90 (>60 ml/min/1.73 sqM); Potassium 3.7 mmol/L (3.5-5.1); Sodium 138 mmol/L (137-145); Total Bilirubin 0.7 mg/dL (0.2-1.3); Total Protein 5.4 g/dL (6.3-8.2)
[2024-02-11 07:17] LABS: Glucose,Whole Blood 102 mg/dL (70-110)
[2024-02-11 07:54] VITALS: RESP 17
[2024-02-11 12:40] LABS: Glucose,Whole Blood 128 mg/dL (70-110)
[2024-02-11 12:49] VITALS: BP 121/83; PULSE 68; TEMP 98.2
--- NOTE | 2024-02-11 13:24 | P.PN ---
Subjective Progress Note Date: 02/11/24 CHIEF COMPLAINT: Abdominal pain HISTORY OF PRESENT ILLNESS: Patient complains of some mild right flank pain. The pain does not radiate. She does report that her urine continues to be dark. She did have some nausea earlier that has improved. She is tolerating regular diet. Still no bowel movement. Patient denies any lower abdominal pain. Patient would like to be discharged. Afebrile. Total bilirubin 0.7 AST 1 15-1 34 ALT 103 up to 118 alk phos 82 PHYSICAL EXAM: VITAL SIGNS: Reviewed. GENERAL: Well-developed in no acute distress. ABDOMEN: Soft. Nondistended. Mild tenderness right flank NEUROLOGIC: Alert and oriented. Cranial nerves II through XII grossly intact. ASSESSMENT: 1. Colitis or possible diverticulitis improved 2. Elevated liver enzymes. Possibly related to Sandrine-Ndiyae virus and medications. PLAN: -Patient can be discharged from surgical standpoint -Recommend patient follows up with her PCP and GI service outpatient -Repeat LFTs in outpatient setting -Urinalysis ordered due to dark urine and right flank pain Physician Ophthalmic Surgeon note has been reviewed by physician. Signing provider agrees with the documented findings, assessment, and plan of care. Objective - Vital Signs Vital signs: Vital Signs Temp 98.2 F 02/11/24 11:55 Pulse 68 02/11/24 11:55 Resp 17 02/11/24 11:55 BP 121/83 02/11/24 11:55 Pulse Ox 99 02/11/24 11:55 FiO2 Intake & Output 02/10/24 02/11/24 02/11/24 18:59 06:59 18:59 Intake Total 540 590 Balance 540 590 Intake: Oral 540 590 Other: Voiding Method Toilet Toilet Toilet # Voids 2 2 - Labs CBC & Chem 7: 02/09/24 05:31 02/11/24 06:15 Labs: Abnormal Lab Results - Last 24 Hours (Table) 02/10/24 02/10/24 02/11/24 Range/Units 17:15 20:11 06:15 Chloride 112 H (98-107) mmol/L Carbon Dioxide 20 L (22-30) mmol/L BUN 6 L (7-17) mg/dL Glucose 112 H (74-99) mg/dL POC Glucose (mg/dL) 141 H 111 H (70-110) mg/dL AST 134 H (14-36) U/L ALT 118 H (4-34) U/L Total Protein 5.4 L (6.3-8.2) g/dL Albumin 3.0 L (3.5-5.0) g/dL 02/11/24 Range/Units 12:24 Chloride (98-107) mmol/L Carbon Dioxide (22-30) mmol/L BUN (7-17) mg/dL Glucose (74-99) mg/dL POC Glucose (mg/dL) 128 H (70-110) mg/dL AST (14-36) U/L ALT (4-34) U/L Total Protein (6.3-8.2) g/dL Albumin (3.5-5.0) g/dL
[2024-02-11 14:31] LABS: Appearance,Urine Cloudy (Clear); Bacteria,Urine Rare /hpf; Bilirubin,Urine 1+ (Negative); Blood,Urine Small (Negative); Color,Urine Dark Brown; Glucose,Urine (UA) Negative (Negative); Hyaline Casts,Urine 3 /lpf (0-2); Ketones,Urine Trace (Negative); Leukocyte Esterase,Urine Moderate (Negative); Mucus,Urine Many /hpf; Nitrite,Urine Negative (Negative); Protein,Urine 1+ (Negative); RBC,Urine 2 /hpf (0-5); Specific Gravity,Urine 1.029 (1.001-1.035); Squamous Epithelial Cell,Urine 12 /hpf (0-4); WBC,Urine 6 /hpf (0-5)
[2024-02-11 16:15] LABS: ALT 136 U/L (4-34); AST 149 U/L (14-36); African American GFR (CKD) >90 (>60 ml/min/1.73 sqM); Albumin 3.8 g/dL (3.5-5.0); Albumin/Globulin Ratio 1.4; Alkaline Phosphatase 90 U/L (38-126); Anion Gap 7 mmol/L; Blood Urea Nitrogen 8 mg/dL (7-17); Calcium 9.4 mg/dL (8.4-10.2); Carbon Dioxide 24 mmol/L (22-30); Chloride 109 mmol/L (98-107); Globulin 2.7 g/dL; Glucose 145 mg/dL (74-99); Non-African American GFR(CKD) >90 (>60 ml/min/1.73 sqM); Potassium 4.2 mmol/L (3.5-5.1); Sodium 140 mmol/L (137-145); Total Bilirubin 0.5 mg/dL (0.2-1.3); Total Protein 6.5 g/dL (6.3-8.2)
--- NOTE | 2024-02-11 20:08 | P.DS ---
Providers Date of admission: 02/07/24 12:22 Expected date of discharge: 02/11/24 Attending physician: Madi Avendaño Consults: 02/08/24 08:03 Consult Physician Routine Consulting Provider: Roberto Harris Consult Reason/Comments: abd pain Do you want consulting provider notified?: Already Contacted Primary care physician: Salvador Tipton [facility] Course: Chief Complaint: Abdominal pain This is a pleasant 43-year-old patient, follows with Dr. Maurilio Tipton. Patient has diabetes mellitus type 1 on insulin pump. She does follow with the clinic of Dr. Liao music agent. About a month ago patient noticed that she started having abdominal discomfort described as a bruising. Her Accu-Cheks are uncontrolled. Trouble with insurance and coverage. She did get admitted to the ER with the DKA. For the last month patient continues to have this pain sensation across the abdomen. Has a bowel movement every 3 to 4 days. Mucousy. Nauseated all the time. Poor appetite. Has been losing weight. Finally decided to come in. Denies any fever and chills. February 07: Continues to have mid abdominal pain. On IV antibiotics. Acute hepat itis panel negative. Some improvement in LFTs. Being followed by surgery. Will order Sandrine-Ndiaye virus panel. February 08: Patient stated she had rather severe different kind of pain yesterday. More in the right flank. Went up to the back shoulder. It went down the legs. Her mid abdominal pain actually is much better. No diarrhea. Remains on clear liquid. Remains on sodium bicarbonate drip. Will change diet to full liquid. Sandrine-Ndiaye virus capsid antigen IgG came back positive so to the IgM. LFTs are coming down. Patient denies any pharyngeal symptoms. No fever reported d. Given that ampicillin can give rash with EBV. Will stop Unasyn February 09: Patient labs and clinical context were discussed with the patient. Has had no bowel movement. Tolerated full liquids. Advance to chopped diet. Hold off any laxative as patient not really been eating. IV Unasyn was discontinued. Change Flagyl to p.o. That is giving some metallic taste. Has some increase in LFTs. Received 1 dose of 1000 mg Tylenol yesterday. Tylenol discontinued. Otherwise clinically looking much better. Patient did have infectious mononucleosis infection in her younger years. Bicarbonate drip being discontinued February 10: Tolerating diet. Slight bump in LFTs. Repeat LFTs done this evening. Again a slight bump. Patient extremely keen to go home. I was concerned about her going home. She is can a follow-up with GI on February 21. Will have the patient do a CMP on Thursday. Patient did take some magnesium Pepcid sodium bicarbonate. Social history: Lives with 2 daughters ages 20 and 17. 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 Smokes occasionally. No alcohol. Physical examination: VITAL SIGNS: 98.2, 68, 17, 121/83, 99% room air GENERAL: Up in chair, comfortable EYES: Pupils equal. Conjunctiva marybel l. HEENT: External appearance of nose and ears normal, oral cavity grossly normal. NECK: JVD not raised; masses not palpable. HEART: First and second heart sounds are normal; no edema. LUNGS: Respiratory rate normal; clear to auscultation. ABDOMEN: Soft, no abdomen tenderness, liver spleen not palpable, no masses palpable. PSYCH: Alert and oriented x3; mood and affect marybel l. INVESTIGATIONS, reviewed in the clinical context: February 10: Potassium 4.2 bicarb 24 creatinine 0.7 AST 149 ALT 136 February 09: Potassium 3.3 bicarb 21 creatinine 0.55 AST 115 ALT 103 procalcitonin 0.4 February 08: White count 9.7 hemoglobin 12.2 platelets 258 sodium 135 potassium 4.1 bicarb 15 creatinine 0.63 AST 37 ALT 98. Procalcitonin 0.07 Sandrine-Ndiaye virus: Capsid antigen IgG positive capsid antigen IgM 3.8 capsid antigen IgM positive Sandrine-Ndiaye virus early antigen IgG negative nuclear antigen IgG positive February 07: White count 6.9 hemoglobin 13.7 platelets 233 sodium 136 potassium 4.2 bicarb 17 BUN 5 creatinine 0.51 AST 104 ALT 147. Procalcitonin 0.07 Hepatitis A IgM antibody, hepatitis B surface antigen, hepatitis B core IgM antibody, hepatitis C IgG antibody: All nonreactive February 06: White count 7.5 hemoglobin 13.5 platelets 207 sodium 136 potassium 4.1 creatinine 0.62 AST 269 ALT 159 February 05 white count 15.7 hemoglobin 15.7 platelets 283 sodium 136 potassium 4.2 BUN 9 creatinine 0.6 AST 19 ALT 13 amylase [address] scan abdomen pelvis with contrast hypodensity within the lateral lobe left liver. Possible hemangioma. Gallbladder absent Assessment plan: -Acute on chronic abdominal pain. Patient's symptoms started about a month ago. Described as a generalized bruising. Patient is a decreased appetite. Mucousy bowel movement. Sometimes will have a bowel movement every 3 to 4 days. Hard. Has lost some weight. Decreased appetite. This could be an Sandrine-Ndiaye virus infection. Patient's IgM is positive. Patient denies any obvious upper respite tract infection or pharyngeal symptoms. Acute hepatitis could be a manifestation of the same. GI services not available in the hospital. General surgery/Dr. Harris consulted. Patient will need a colonoscopy at some point. Empirically on IV Unasyn and IV Flagyl.-Stop Unasyn. Tolerating soft diet Patient to follow-up with GI Dr. Scott Canas's office February 21 -Diabetes mellitus type 1, on insulin pump. Patient manages her own. Patient follows at the office of Dr. Liao -Metabolic acidosis Stop bicarbonate drip. Changed to oral sodium bicarbonate. -Acute hepatitis. LFTs were normal initially.: From Sandrine-Ndiaye virus acute infection: Improving Acute hepatitis panel negative Repeat CMP on Thursday -Obesity BMI 31.5 Weight loss measures. -Full code Disposition: Home 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, ovarian cyst History of Any Multi-Drug Resistant Organisms: MRSA Date of last positivie culture/infection: 08/14/17 MDRO Source:: face Past Surgical History: Cholecystectomy Additional Past Surgical History / Comment(s): mass removed left breast and left neck - all benign Past Anesthesia/Blood Transfusion Reactions: No Reported Reaction Past Psychological History: No Psychological Hx Reported Smoking Status: Never smoker, Vaper Past Alcohol Use History: Occasional Past Drug Use History: None Reported Plan - Discharge Summary New Discharge Prescriptions: New Magnesium Oxide [Mag-Ox] 400 mg PO DAILY #30 tab Famotidine [Pepcid] 20 mg PO BID #60 tab Sodium Bicarbonate Tab 650 mg PO TID #30 tab Continue Multivitamins, Thera [Multivitamin (formulary)] 1 tab PO DAILY Insulin Aspart (For Pump) [NovoLOG (For Pump)] 0.01 unit SQ-PUMP CONTINUOUS Discharge Medication List Multivitamins, Thera [Multivitamin (formulary)] 1 tab PO DAILY 01/19/17 [History] Insulin Aspart (For Pump) [NovoLOG (For Pump)] 0.01 unit SQ-PUMP CONTINUOUS 02/06/24 [History] Famotidine [Pepcid] 20 mg PO BID #60 tab 02/11/24 [Rx] Magnesium Oxide [Mag-Ox] 400 mg PO DAILY #30 tab 02/11/24 [Rx] Sodium Bicarbonate Tab 650 mg PO TID #30 tab 02/11/24 [Rx] Follow up Appointment(s)/Referral(s): Dot Canas MD [STAFF PHYSICIAN] - 02/22/24 8:00 am (Appt. made with [facility] with PA. Carlos ) Salvador Tipton MD [Primary Care Provider] - 02/12/24 1:00 pm Patient Instructions/Handouts: Mononucleosis (GEN), Liver Profile (GEN), Diabetes Type 1: Management (DC) Activity/Diet/Wound Care/Special Instructions: Activity as tolerated-please get ample rest. Patient to have blood draw completed tomorrow 02/12/24 and again on Thursday02/15/24. Results to your PCP Dr. Tipton. Avoid TYLENOL or medications containing Acetaminophen. Discharge Disposition: HOME SELF-CARE
== END 2024-02-11 18:53 | disposition home or self-care (01) | DRG 391 ==
LOC: EC 09:27 → 5NMEDONC 13:41 → OBSVTOIN 02-07 12:22 → 5NMEDONC 02-07 15:30
PROVIDERS: ADMIT Hospitalist; ATTEND Hospitalist
DX: K52.89 Other specified noninfective gastroenteritis and colitis (principal); E10.10 Type 1 diabetes mellitus with ketoacidosis without coma; D80.4 Selective deficiency of immunoglobulin M [IgM]; B27.09 Gammaherpesviral mononucleosis with other complications; Z79.4 Long term (current) use of insulin; E66.9 Obesity, unspecified; Z68.31 Body mass index [BMI] 31.0-31.9, adult; G89.29 Other chronic pain; D18.09 Hemangioma of other sites; N28.1 Cyst of kidney, acquired; T36.0X5A Adverse effect of penicillins, initial encounter; T39.1X5A Adverse effect of 4-Aminophenol derivatives, initial encounter; R74.8 Abnormal levels of other serum enzymes; Z96.41 Presence of insulin pump (external) (internal); Z72.0 Tobacco use; Z86.018 Personal history of other benign neoplasm; Z86.19 Personal history of other infectious and parasitic diseases; Z86.14 Personal history of Methicillin resistant Staphylococcus aureus infection; Z80.0 Family history of malignant neoplasm of digestive organs; Z88.1 Allergy status to other antibiotic agents; Z88.2 Allergy status to sulfonamides; Z79.899 Other long term (current) drug therapy
CPT/HCPCS: 36415; 74177; 80053; 80074; 81001; 82150; 83605; 83690; 84145; 84702; 85025; 85610; 85730; 86663; 86664; 86665; 87040; 96361; 96365; 96366; 96372; 96375; 96376; 99285

== ENCOUNTER → 2024-02-12 | Outpatient (CLI) | payer BC ==
[2024-02-12 17:34] LABS: ALT 145 U/L (8-44); AST 131 U/L (13-35); Albumin 4.1 g/dL (3.8-4.9); Albumin/Globulin Ratio 1.78 Ratio (1.60-3.17); Alkaline Phosphatase 101 U/L (41-126); BUN/Creat Ratio 7.88 Ratio (12.00-20.00); Blood Urea Nitrogen 6.3 mg/dL (9.0-27.0); Calcium 8.8 mg/dL (8.7-10.3); Carbon Dioxide 22.5 mmol/L (21.6-31.8); Chloride 106 mmol/L (96-109); Globulin 2.3 g/dL (1.6-3.3); Glucose 174 mg/dL (70-110); Potassium 3.9 mmol/L (3.5-5.5); Sodium 141 mmol/L (135-145); Total Bilirubin 0.4 mg/dL (0.3-1.2); Total Protein 6.4 g/dL (6.2-8.2)
== END | disposition home or self-care (01) ==
LOC: LABWHC1 08:36
PROVIDERS: ATTEND Hospitalist
DX: R74.01 Elevation of levels of liver transaminase levels (principal)
CPT/HCPCS: 36415; 80053

== ENCOUNTER → 2024-02-15 | Outpatient (CLI) | payer BC ==
[2024-02-15 16:19] LABS: ALT 119 U/L (8-44); AST 62 U/L (13-35); Albumin 4.1 g/dL (3.8-4.9); Albumin/Globulin Ratio 1.58 Ratio (1.60-3.17); Alkaline Phosphatase 97 U/L (41-126); BUN/Creat Ratio 7.12 Ratio (12.00-20.00); Blood Urea Nitrogen 5.7 mg/dL (9.0-27.0); Calcium 9.1 mg/dL (8.7-10.3); Carbon Dioxide 22.3 mmol/L (21.6-31.8); Chloride 104 mmol/L (96-109); Globulin 2.6 g/dL (1.6-3.3); Glucose 220 mg/dL (70-110); Potassium 4.3 mmol/L (3.5-5.5); Sodium 138 mmol/L (135-145); Total Bilirubin 0.4 mg/dL (0.3-1.2); Total Protein 6.7 g/dL (6.2-8.2)
== END | disposition home or self-care (01) ==
LOC: LABWHC1 09:12
PROVIDERS: ATTEND Hospitalist
DX: R74.01 Elevation of levels of liver transaminase levels (principal)
CPT/HCPCS: 36415; 80053

== ENCOUNTER → 2024-03-11 | Outpatient (CLI) | payer BC ==
--- NOTE | 2024-03-11 15:00 | MR ---
EXAMINATION TYPE: MR abdomen wo/w con DATE OF EXAM: 03/11/2024 11:10 AM INDICATION: Patient age:Female; 43 years old; Reason for study: K76.9 LIVER DISEASE, UNSPECIFIED; [facility]. COMPARISON: CT abdomen pelvis 02/06/2024, 01/19/2017, MR abdomen 02/06/2017. TECHNIQUE: Multiplanar multi-sequence imaging was performed of the abdomen without and with IV contr ast/Gadavist . The patient was given 8 ccs of Gadavist intravenously and dynamic imaging was perform ed. Post IV contrast subtraction images were also submitted for review. FINDINGS: LIVER: Liver is at the top normal for size. Noncirrhotic morphology. Redemonstration of right hepatic lobe T2 hyperintense/T1 hypointense lesion measuring 1.9 cm, previously measuring 1.4 cm on prior MR in 2016 [address] corresponds to recent CT finding. This demonstrates peripheral nodular discontinuous con trast enhancement with progressive centripetal filling on postcontrast imaging. This again is consist ent with a benign hemangioma. Remainder of liver shows no additional solid or cystic mass. No suspici ous or intrahepatic or extrahepatic ductal dilatation is seen. Gallbladder is surgically absent. Comm on bile duct measures up to 9 mm which is within normal limits postcholecystectomy. ADRENALS: Stable left adrenal gland 1.3 cm nodule which demonstrates some dropout of signal on out of phase imaging again. This is again consistent with benign lipid rich adenoma. Right adrenal gland is unremarkable. OTHER: Linear atelectasis within the right lower lobe. Increased size of simple appearing thin-walled nonenhancing exophytic right lower pole renal cyst measuring 11.9 x 9.4 x 8.6 cm, previously 8 cm. T he pancreas and spleen appear unremarkable. There is no suspicious small or large bowel dilatation. T here is no concerning abdominal fluid collection. There is no suspicious abdominal adenopathy. Visual ized osseous structures are intact. Few small scattered osseous hemangiomas are again noted. IMPRESSION: 1. Slight increase in size of 1.9 cm right hepatic lobe benign hemangioma from prior MRI in 2017, pr eviously 1.4 cm. No new suspicious hepatic lesions. Stable left adrenal gland nodule consistent with a benign lipid rich adenoma. 2. Increased size of large right simple renal cyst from prior MRI.
== END | disposition home or self-care (01) ==
LOC: RADMRIMAIN 07:31
PROVIDERS: ATTEND Internal Medicine Gastroenterology
DX: K76.9 Liver disease, unspecified (principal); N28.1 Cyst of kidney, acquired; D18.00 Hemangioma unspecified site; D35.02 Benign neoplasm of left adrenal gland
CPT/HCPCS: 74183; A9585

== ENCOUNTER → 2024-04-20 | Outpatient (CLI) | payer BC ==
[2024-04-28 19:41] LABS: Metanephrine, Free <25 pg/mL (< OR = 57); Normetanephrine, Free 38 pg/mL (< OR = 148); Total, Free (MN + NMN) 38 pg/mL (< OR = 205)
== END | disposition home or self-care (01) ==
LOC: LABWHC1 08:57
PROVIDERS: ATTEND Urology
DX: D35.00 Benign neoplasm of unspecified adrenal gland (principal)
CPT/HCPCS: 36415; 82533; 83835

== ENCOUNTER → 2024-04-23 | Outpatient (CLI) | payer BC ==
--- NOTE | 2024-04-23 11:14 | MR ---
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 Post contrast imaging was performed. Post IV contrast subtraction images were also submitted for review. IV Contrast: 8 cc FINDINGS: LOWER CHEST: No gross irregularity. ABDOMEN Liver: No evidence for hepatic steatosis or cirrhosis. High T2 signal lesion in the right hepatic lob e measuring 21 x 16 mm which demonstrates progressive peripheral nodular discontinuous enhancement on delayed imaging. Gallbladder and Bile ducts: No evidence for ductal dilation, or biliary stricture or evidence of chol edocholithiasis. The gallbladder appears surgically absent Pancreas: No ductal dilation. No evidence for solid mass. Spleen: Normal for size. Adrenal glands: Unremarkable. Kidneys: No hydronephrosis. High T2 signal right renal cyst on the right measuring up to 11.6 x 8.9 c m. Stomach and Bowel: No evidence for bowel wall thickening or evidence for obstruction. Retroperitoneum/Peritoneum: No evidence of pneumoperitoneum or free fluid. Vasculature: No aortic aneurysm. Musculoskeletal: The osseous structures appear intact. Lymph Nodes: No gross evidence for lymphadenopathy. Abdominal wall: Unremarkable. IMPRESSION: 1. Simple appearing right renal cyst measuring up to 1.6 cm. 2. Right hepatic lobe benign enhancing lesion most compatible with benign hemangioma.
== END | disposition home or self-care (01) ==
LOC: RADMRIMAIN 09:50
PROVIDERS: ATTEND Urology
DX: D41.01 Neoplasm of uncertain behavior of right kidney
CPT/HCPCS: 74183

== ENCOUNTER → 2024-05-27 | Day surgery (SDC) | payer BC ==
[2024-05-27 07:38] VITALS: RESP 16
[2024-05-27] MEDS: ALPRAZolam 0.5 MG TAB PO PRN (08:10)
[2024-05-27 09:50] VITALS: BP 117/79; PULSE 61; TEMP 98.1
--- NOTE | 2024-05-30 08:50 | MM ---
Date of Procedure: 05/27/24 Preoperative Diagnosis: microcalcifications of concern bilateral breast Postoperative Diagnosis: same Procedure(s) Performed: Stereotactic core biopsy bi lateral Anesthesia: local Surgeon: Chelsea Rush Pathology: other (Specimen sent from both breast with microcalcifications of concern noted in both specimens) Condition: stable Disposition: same day Indications for Procedure: Bilateral microcalcifications of concern in the breast Operative Findings: The patient was brought to the stereotactic core biopsy unit. Her radiographs were reviewed personally with the radiologist. The right breast was approached initially and a CC from above approach was utilized. The area of microcalcifications were targeted. A proposal analyst film was obtained and the lesion was targeted. The breast was prepped using chlorhexidine. 20 cc of 1% lidocaine were used to anesthetize the area of concern. A 9 gauge vacuum-assisted core rotating biopsy needle was driven to the correct coordinates. Prior film was obtained. The needle was noted to be in the correct location. The needle was fired. A post fire film was obtained. The needle was noted to be in the correct location. 12 specimens were obtained. Radiograph of the specimens revealed calcifications of concern had been adequately sampled. A secure darlene Top-Hat clip was deployed. The area of the left breast was approached. A CC from below approach was utilized. The lesion was identified on a proposal analyst film. The lesion was targeted. The breast was prepped using chlorhexidine. 20 cc of 1% lidocaine were used to anesthetize the area of concern. A 9 gauge vacuum-assisted core rotating biopsy needle was driven to the correct coordinates. Prefire film was obtained. The needle was noted to be in the correct location. Approximately 14 specimens were obtained. Radiograph of the specimens revealed the calcifications of concern had been adequately sampled. A secure darlene Top-Hat clip was deployed. The procedure in stable condition. She will follow-up next week. The specimen was sent to pathology. [facility] HEALTHRos[facility]
== END ==
LOC: RADMAMWWP 07:14
PROVIDERS: ATTEND Surgery
CPT/HCPCS: 88305

== ENCOUNTER → 2024-05-27 | Outpatient (CLI) | payer BC ==
[2024-05-27 07:58] VITALS: RESP 16
--- NOTE | 2024-05-27 10:43 | P.GSCN ---
History of Present Illness Consult date: 05/27/24 Reason for Consult: Bilateral mammographic abnormality of microcalcifications Requesting physician: Salvador Tipton History of present illness: Bhargavi is a 43 year old female seen in consult for Dr. Tipton bilateral abnormal mammograms. She underwent bilateral screening mammography on 04-25-2024 which led to bilateral diagnostic mammograms on 05-06-2024. A lesion of concern was seen in the right breast and a lesion of concern was seen in the left breast only on the CC projection. Stereotactic core biopsies of both lesions were recommended. That in the right was at the posterior nipple line at approximately the 3 o'clock position. The patient has undergone a prior left breast ReSound guided biopsy which then led to a an open biopsy in approximately 2016 which was benign. At that time she This was found on a routine mammogram. She was hospitalized in January with stomach pain, bacterial colitis Caffiene: 1 1/2 cup coffee/day nicotine: none stopped in January 2024 used to smoke 1 1/2 PPD for 15 years chocolate: one time a month Hormonal History: menarche: 12 A1 breast fed: yes, age at first : 23 periods regular: LMP about 3 weeks ago BCP: 8 years hormones: none Surgical History: gallbladder benign tumor in neck lump in her left breast Medical History: type 1 diabetic 12 years Family History: father: colon cancer paternal grandfather: cancer ? type paternal great uncle: colon, lung, and skin cancer Social History: nicotine: none alcohol: occasional drugs: none Review of Systems - Constitutional Reports sweats - EENT Eyes: denies blurred vision Ears: deny: decreased hearing Ears, nose, mouth and throat: Denies dysphagia - Breasts bilateral: as per HPI - Cardiovascular Denies chest pain, Denies shortness of breath - Respiratory Denies cough, Denies 7 - Gastrointestinal Reports as per HPI - Genitourinary Genitourinary: Denies dysuria, Denies hematuria Menstruation: Reports period normal - Musculoskeletal Reports as per HPI - Integumentary Denies rash, Denies unusual bruising - Neurological Denies headaches, Denies syncope - Psychiatric Reports as per HPI - Endocrine Reports as per HPI - Hematologic/Lymphatic Denies easy bleeding, Denies easy bruising - Allergic/Immunologic Reports as per HPI 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, ovarian cyst History of Any Multi-Drug Resistant Organisms: MRSA Year Discovered:: 08/14/17 MDRO Source:: face Past Surgical History: Cholecystectomy Additional Past Surgical History / Comment(s): mass removed left breast and left neck - all benign Past Anesthesia/Blood Transfusion Reactions: No Reported Reaction Past Psychological History: No Psychological Hx Reported Additional Psychological History / Comment(s): Single and has 2 children 10 and 13 who she cares for. 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 No experience. No international travel. No animal exposures. Children without evidence of skin lesions. Positive tobacco use but no significant alcohol use or recreational drug use. Smoking Status: Former smoker Past Alcohol Use History: Occasional Additional Past Alcohol Use History / Comment(s): started smoking age 17 smokes 3/4 ppd Past Drug Use History: None Reported - Past Family History Father Family Medical History: Cancer Additional Family Medical History / Comment(s): colon cancer Mother Family Medical History: No Reported History Medications and Allergies Home Medications Medication Instructions Recorded Confirmed Type Multivitamins, Thera [Multivitamin 1 tab PO DAILY 01/19/17 05/27/24 History (formulary)] Insulin Aspart (For Pump) [NovoLOG 0.01 unit SQ-PUMP CONTINUOUS 02/06/24 05/27/24 History (For Pump)] Allergies Allergy/AdvReac Type Severity Reaction Status Date / Time doxycycline Allergy Rash/Hives Verified 05/27/24 07:55 Sulfa (Sulfonamide Allergy Rash/Hives Verified 05/27/24 07:55 Antibiotics) Surgical - Exam Vital Signs Resp 16 05/27/24 07:56 - General no distress - Eyes normal ocular movement - ENT no hearing loss - Neck trachea midline - Respiratory normal respiratory effort - Cardiovascular Rhythm: regular Heart Sounds: normal: S1, S2 - Abdomen Abdomen: soft, non tender, no guarding, no rigid, no rebound - Integumentary normal turgor - Neurologic no disoriented, no combative - Musculoskeletal normal gait - Psychiatric oriented to time, oriented to person, oriented to place, speech is normal, memory intact Breast Exam: BRA: 36B Inspection: Bilateral grade 2 ptosis Palpation: Right breast: Multi positional exam no dominant masses or nodules of concern Right axilla: No adenopathy of concern Left breast: Multi positional exam no dominant masses or nodules of concern Left axilla: No adenopathy of concern Results Mammogram reviewed and Discussed personally with Dr. Malcolm from radiology Assessment and Plan Assessment: Impression: Microcalcifications of concern bilateral breast Plan: Stereotactic core biopsy bilaterally Risk and benefits of the procedure were discussed with the patient. Risk include but were not limited to bleeding, infection, reaction to the anesthetic. Additionally if the tissue acquisition were felt to be discordant then further tissue acquisition may be necessary. She understood and wished to proceed. CC: Dr. Tipton
--- NOTE | 2024-05-27 10:49 | P.PCN ---
Date of Procedure: 05/27/24 Preoperative Diagnosis: microcalcifications of concern bilateral breast Postoperative Diagnosis: same Procedure(s) Performed: Stereotactic core biopsy bi lateral Anesthesia: local Surgeon: Chelsea Rush Pathology: other (Specimen sent from both breast with microcalcifications of concern noted in both specimens) Condition: stable Disposition: same day Indications for Procedure: Bilateral microcalcifications of concern in the breast Operative Findings: The patient was brought to the stereotactic core biopsy unit. Her radiographs were reviewed personally with the radiologist. The right breast was approached initially and a CC from above approach was utilized. The area of microcalcifications were targeted. A data review specialist film was obtained and the lesion was targeted. The breast was prepped using chlorhexidine. 20 cc of 1% lidocaine were used to anesthetize the area of concern. A 9 gauge vacuum-assisted core rotating biopsy needle was driven to the correct coordinates. Prior film was obtained. The needle was noted to be in the correct location. The needle was fired. A post fire film was obtained. The needle was noted to be in the correct location. 12 specimens were obtained. Radiograph of the specimens revealed calcifications of concern had been adequately sampled. A secure darlene Top-Hat clip was deployed. The area of the left breast was approached. A CC from below approach was utilized. The lesion was identified on a data review specialist film. The lesion was targeted. The breast was prepped using chlorhexidine. 20 cc of 1% lidocaine were used to anesthetize the area of concern. A 9 gauge vacuum-assisted core rotating biopsy needle was driven to the correct coordinates. Prefire film was obtained. The needle was noted to be in the correct location. Approximately 14 specimens were obtained. Radiograph of the specimens revealed the calcifications of concern had been adequately sampled. A secure darlene Top-Hat clip was deployed. The procedure in stable condition. She will follow-up next week. The specimen was sent to pathology.
== END ==
LOC: WWCWWP 07:16
PROVIDERS: ATTEND Surgery

== ENCOUNTER → 2024-06-10 | Outpatient (CLI) | payer BC ==
[2024-06-10 15:12] VITALS: BP 156/89; PULSE 65; RESP 16; TEMP 97.9
--- NOTE | 2024-06-10 15:18 | P.PN ---
Subjective Progress Note Date: 06/10/24 Principal diagnosis: Bilateral breast intraductal papilloma 05/27/24 Reason for Consult: Bilateral mammographic abnormality of microcalcifications Requesting physician: Salvador Tipton History of present illness: Bhargavi is a 43 year old female seen in consult for Dr. Tipton bilateral abnormal mammograms. She underwent bilateral screening mammography on 04-25-2024 which led to bilateral diagnostic mammograms on 05-06-2024. A lesion of concern was seen in the right breast and a lesion of concern was seen in the left breast only on the CC projection. Stereotactic core biopsies of both lesions were recommended. That in the right was at the posterior nipple line at approximately the 3 o'clock position. The patient has undergone a prior left breast ReSound guided biopsy which then led to a an open biopsy in approximately 2016 which was benign. At that time she This was found on a routine mammogram. She was hospitalized in January with stomach pain, bacterial colitis Bilateral breast stereotactic core biopsy and 05-27-2024. Both sites revealed intraductal papilloma. Caffiene: 1 1/2 cup coffee/day nicotine: none stopped in January 2024 used to smoke 1 1/2 PPD for 15 years chocolate: one time a month Hormonal History: menarche: 12 A1 breast fed: yes, age at first : 23 periods regular: LMP about 3 weeks ago BCP: 8 years hormones: none Surgical History: gallbladder benign tumor in neck lump in her left breast Medical History: type 1 diabetic 12 years Family History: father: colon cancer paternal grandfather: cancer ? type paternal great uncle: colon, lung, and skin cancer Social History: nicotine: none alcohol: occasional drugs: none Review of Systems - Constitutional Reports sweats - EENT Eyes: denies blurred vision Ears: deny: decreased hearing Ears, nose, mouth and throat: Denies dysphagia - Breasts bilateral: as per HPI - Cardiovascular Denies chest pain, Denies shortness of breath - Respiratory Denies cough, Denies 7 - Gastrointestinal Reports as per HPI - Genitourinary Genitourinary: Denies dysuria, Denies hematuria Menstruation: Reports period normal - Musculoskeletal Reports as per HPI - Integumentary Denies rash, Denies unusual bruising - Neurological Denies headaches, Denies syncope - Psychiatric Reports as per HPI - Endocrine Reports as per HPI - Hematologic/Lymphatic Denies easy bleeding, Denies easy bruising - Allergic/Immunologic Reports as per HPI 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, ovarian cyst History of Any Multi-Drug Resistant Organisms: MRSA Year Discovered:: 08/14/17 MDRO Source:: face Past Surgical History: Cholecystectomy Additional Past Surgical History / Comment(s): mass removed left breast and left neck - all benign Past Anesthesia/Blood Transfusion Reactions: No Reported Reaction Past Psychological History: No Psychological Hx Reported Additional Psychological History / Comment(s): Single and has 2 children 10 and 13 who she cares for. 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 No experience. No international travel. No animal exposures. Children without evidence of skin lesions. Positive tobacco use but no significant alcohol use or recreational drug use. Smoking Status: Former smoker Past Alcohol Use History: Occasional Additional Past Alcohol Use History / Comment(s): started smoking age 17 smokes 3/4 ppd Past Drug Use History: None Reported - Past Family History Father Family Medical History: Cancer Additional Family Medical History / Comment(s): colon cancer Mother Family Medical History: No Reported History Medications and Allergies Home Medications Medication Instructions Recorded Confirmed Type Multivitamins, Thera [Multivitamin 1 tab PO DAILY 01/19/17 05/27/24 History (formulary)] Insulin Aspart (For Pump) [NovoLOG 0.01 unit SQ-PUMP CONTINUOUS 02/06/24 History (For Pump)] Allergies Allergy/AdvReac Type Severity Reaction Status Date / Time doxycycline Allergy Rash/Hives Verified 05/27/24 07:55 Sulfa (Sulfonamide Allergy Rash/Hives Verified 05/27/24 07:55 Antibiotics) Objective - Vital Signs Vital signs: Vital Signs Temp 97.9 F 06/10/24 15:06 Pulse 65 06/10/24 15:06 Resp 16 06/10/24 15:06 BP 156/89 06/10/24 15:06 Pulse Ox 98 06/10/24 15:06 FiO2 Intake & Output 06/09/24 06/10/24 06/10/24 18:59 06:59 18:59 Weight 83.007 kg - Constitutional General appearance: Present: cooperative - EENT ENT: Present: hearing grossly normal - Respiratory Respiratory: bilateral: CTA - Cardiovascular Heart sounds: normal: S1, S2 - Musculoskeletal Musculoskeletal: Present: gait normal - Psychiatric Psychiatric: Present: A&O x's 3, appropriate affect, intact judgment & insight - Additional findings Additional findings: Biopsy sites right and left breast clean and dry no evidence of infection or hematoma Assessment and Plan Assessment: Impression: Bilateral stereotactic core biopsy revealing intraductal papilloma Plan: Will review radiographs with the radiologist to assure that the areas of concern have been fully and adequately sampled, if so repeat bilateral mammogram in 6 months CC: Dr. Tipton
== END ==
LOC: WWCWWP 14:46
PROVIDERS: ATTEND Surgery

== ENCOUNTER → 2024-06-24 | Day surgery (SDC) | payer BC ==
[~2024-06-24] MED LIST changes: +ALPRAZolam 0.25 MG TAB PO PRN; -LACTATED RINGERS 1,000 ML IV SCH; -LIDOCAINE 1% (10MG/ML) FOR IV START INTRADERMA PRN
[2024-06-24] MEDS: ALPRAZolam 0.5 MG TAB PO PRN (07:39)
[2024-06-24 07:47] VITALS: RESP 16; TEMP 98.1
[2024-06-24 08:39] VITALS: BP 123/86; PULSE 64
--- NOTE | 2024-06-24 11:55 | P.PCN ---
Date of Procedure: 06/24/24 Preoperative Diagnosis: Microcalcifications of concern left breast Postoperative Diagnosis: Same Procedure(s) Performed: Left breast stereotactic core biopsy Anesthesia: local Surgeon: Chelsea Rush Pathology: other (Breast tissue showing microcalcifications of concern) Condition: stable Disposition: same day Indications for Procedure: Microcalcifications of concern left breast Operative Findings: Specimen radiograph reveals microcalcifications of concern Description of Procedure: Following informed consent the patient was brought to the stereotactic core biopsy room. A cisco network architect film was obtained of the left breast. Microcalcifications of concern near the coil clip which had previously been placed were identified. Patient was targeted. The breast was prepped using chlorhexidine. Cc of 1% lidocaine were used to anesthetize the area of concern. A 16-gauge vacuum- assisted core biopsy needle was driven to the correct coordinates. A prefire film was obtained. The needle appeared to be in the correct location. The needle was fired. A post fire film was obtained. The needle appeared to be in the correct location. 12 core biopsy specimens were obtained. Radiograph of the specimen revealed the area of concern had been adequately sampled. A bowtie clip was placed. The patient tolerated the procedure in stable condition. The specimen was sent to pathology the patient will follow-up with Dr. Tadeo next week.
--- NOTE | 2024-06-27 08:11 | MM ---
Date of Procedure: 06/24/24 Preoperative Diagnosis: Microcalcifications of concern left breast Postoperative Diagnosis: Same Procedure(s) Performed: Left breast stereotactic core biopsy Anesthesia: local Surgeon: Chelesa Rush Pathology: other (Breast tissue showing microcalcifications of concern) Condition: stable Disposition: same day Indications for Procedure: Microcalcifications of concern left breast Operative Findings: Specimen radiograph reveals microcalcifications of concern Description of Procedure: Following informed consent the patient was brought to the stereotactic core biopsy room. A environmental compliance specialist film was obtained of the left breast. Microcalcifications of concern near the coil clip which had previously been placed were identified. Patient was targeted. The breast was prepped using chlorhexidine. Cc of 1% lidocaine were used to anesthetize the area of concern. A 16-gauge vacuum- assisted core biopsy needle was driven to the correct coordinates. A prefire film was obtained. The needle appeared to be in the correct location. The needle was fired. A post fire film was obtained. The needle appeared to be in the correct location. 12 core biopsy specimens were obtained. Radiograph of the specimen revealed the area of concern had been adequately sampled. A bowtie clip was placed. The patient tolerated the procedure in stable condition. The specimen was sent to pathology the patient will follow-up with Dr. Tadeo next week. ROLDAN
== END ==
LOC: RADMAMWWP 07:24
PROVIDERS: ATTEND Surgery
DX: N60.82 Other benign mammary dysplasias of left breast (principal); N60.22 Fibroadenosis of left breast
CPT/HCPCS: 88305; 19081; A4648; J2003

== ENCOUNTER → 2024-07-11 | Outpatient (CLI) | payer BC ==
--- NOTE | 2024-07-18 07:57 | BMR ---
EXAM DATE: 07/11/2024 EXAM DESCRIPTION: MRI-Breast Bilat (W/WO Contrast) INDICATION: History of bilateral breast intraductal papilloma mass COMPARISON: Prior relevant imaging available in PACS was reviewed TECHNIQUE: Multiplanar multisequence breast MRI was performed prior to and after administration of 8 mL of Gadavist intravenously. Post processing was performed utilizing a [employer] workstation. The technical portion of this study was performed at [facility] with radiological interpretation by [facility] radiology. FINDINGS: There is marked, symmetric background parenchymal enhancement in breasts that are composed of heterogeneous fibroglandular tissue. RIGHT BREAST: Review of the dynamic contrast enhanced series shows no rapidly enhancing masses, suspicious enhancement patterns or other abnormalities. Numerous enhancing foci in the breast, none of which looking different than the rest, likely representing background parenchymal enhancement. Signal void from biopsy clip in the outer posterior depth of the breast (series 601, image 164 and series 503, image 338) with no suspicious enhancing mass. The T2 weighted series show no abnormality. LEFT BREAST: Review of the dynamic contrast enhanced series shows no rapidly enhancing masses, suspicious enhancement pattern or other abnormalities. Numerous enhancing foci in the breast, none of which looking different than the rest, likely representing marked background parenchymal enhancement. Signal voids from 3 biopsy clips in the breast with no suspicious enhancing masses. The T2 weighted series show no abnormality. LYMPH NODES: No axillary or internal mammary lymphadenopathy. INCIDENTALS: A 2.2 cm well-circumscribed T2 hyperintense nonenhancing cyst in the liver (series 401, image 7). IMPRESSION: 1. No definitive MR evidence of malignancy in either breast. 2. Numerous symmetric enhancing foci in both breasts, none of which looking different than the rest, likely representing marked background parenchymal enhancement. 3. Signal void from biopsy clips in both breasts with no associated mass or suspicious enhancement pattern. OVERALL ASSESSMENT- BI-RADS 2 ANNUAL SCREENING BREAST MRI IN ADDITION TO MAMMOGRAPHY IS RECOMMENDED IN PATIENTS WITH LIFETIME RISK OF BREAST CANCER >20% MTDD
== END | disposition home or self-care (01) ==
LOC: RADMRIMAIN 20:30
PROVIDERS: ATTEND Surgery
DX: N63.20 Unspecified lump in the left breast, unspecified quadrant (principal); Z86.018 Personal history of other benign neoplasm
CPT/HCPCS: 77049; A9585

== ENCOUNTER → 2024-07-28 | Outpatient (CLI) | payer BC ==
[2024-07-28 09:04] VITALS: BP 143/88; PULSE 80; RESP 17; TEMP 97.9
--- NOTE | 2024-07-28 10:00 | P.PN ---
Subjective Progress Note Date: 07/28/24 Principal diagnosis: intraductal papilloma bilateral breast Bilateral mammographic abnormality of microcalcifications Requesting physician: Salvador Tipton History of present illness: Bhargavi is a 43 year old female seen in consult for Dr. Tipton on 05-27-24 with bilateral abnormal mammograms. She underwent bilateral screening mammography on 04-25-2024 which led to bilateral diagnostic mammograms on 05-06-2024. A lesion of concern was seen in the right breast and a lesion of concern was seen in the left breast only on the CC projection. Stereotactic core biopsies of both lesions were recommended. That in the right was at the posterior nipple line at approximately the 3 o'clock position. The patient has undergone a prior left breast ultrasound guided biopsy which then led to a an open biopsy in approximately 2016 which was benign. She was not complaining of any palpable masses. She was hospitalized in January 2024 with stomach pain, bacterial colitis bilateral stero biopsy on 05-27-24 bilateral intraductal papillomas MRI 07-11-24 BIRAD 2 personally discussed and reviewed with Dr. Lomas Caffiene: 1 1/2 cup coffee/day nicotine: none stopped in January 2024 used to smoke 1 1/2 PPD for 15 years chocolate: one time a month Hormonal History: menarche: 12 A1 breast fed: yes, age at first : 23 periods regular: LMP about 3 weeks ago BCP: 8 years hormones: none Surgical History: gallbladder benign tumor in neck lump in her left breast Medical History: type 1 diabetic 12 years Family History: father: colon cancer paternal grandfather: cancer ? type paternal great uncle: colon, lung, and skin cancer Social History: nicotine: none alcohol: occasional drugs: none Review of Systems - Constitutional Reports sweats - EENT Eyes: denies blurred vision Ears: deny: decreased hearing Ears, nose, mouth and throat: Denies dysphagia - Breasts bilateral: as per HPI - Cardiovascular Denies chest pain, Denies shortness of breath - Respiratory Denies cough, Denies 7 - Gastrointestinal Reports as per HPI - Genitourinary Genitourinary: Denies dysuria, Denies hematuria Menstruation: Reports period normal - Musculoskeletal Reports as per HPI - Integumentary Denies rash, Denies unusual bruising - Neurological Denies headaches, Denies syncope - Psychiatric Reports as per HPI - Endocrine Reports as per HPI - Hematologic/Lymphatic Denies easy bleeding, Denies easy bruising - Allergic/Immunologic Reports as per HPI 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, ovarian cyst History of Any Multi-Drug Resistant Organisms: MRSA Year Discovered:: 08/14/17 MDRO Source:: face Past Surgical History: Cholecystectomy Additional Past Surgical History / Comment(s): mass removed left breast and left neck - all benign Past Anesthesia/Blood Transfusion Reactions: No Reported Reaction Past Psychological History: No Psychological Hx Reported Additional Psychological History / Comment(s): Single and has 2 children 10 and 13 who she cares for. 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 No experience. No international travel. No animal exposures. Children without evidence of skin lesions. Positive tobacco use but no significant alcohol use or recreational drug use. Smoking Status: Former smoker Past Alcohol Use History: Occasional Additional Past Alcohol Use History / Comment(s): started smoking age 17 smokes 3/4 ppd Past Drug Use History: None Reported - Past Family History Father Family Medical History: Cancer Additional Family Medical History / Comment(s): colon cancer Mother Family Medical History: No Reported History Medications and Allergies Home Medications Medication Instructions Recorded Confirmed Type Multivitamins, Thera [Multivitamin 1 tab PO DAILY 01/19/17 05/27/24 History (formulary)] Insulin Aspart (For Pump) [NovoLOG 0.01 unit SQ-PUMP CONTINUOUS 02/06/24 05/27/24 History (For Pump)] Allergies Allergy/AdvReac Type Severity Reaction Status Date / Time doxycycline Allergy Rash/Hives Verified 05/27/24 07:55 Sulfa (Sulfonamide Allergy Rash/Hives Verified 05/27/24 07:55 Antibiotics) Objective - Vital Signs Vital signs: Vital Signs Temp 97.9 F 07/28/24 09:01 Pulse 80 07/28/24 09:01 Resp 17 07/28/24 09:01 BP 143/88 07/28/24 09:01 Pulse Ox 100 07/28/24 09:01 FiO2 Intake & Output 07/27/24 07/28/24 07/28/24 18:59 06:59 18:59 Weight 78.925 kg - Constitutional General appearance: Present: cooperative - EENT Eyes: Present: EOMI ENT: Present: hearing grossly normal - Neck Neck: Present: normal ROM - Respiratory Respiratory: bilateral: CTA - Cardiovascular Rhythm: regular Heart sounds: normal: S1, S2 - Integumentary Integumentary: Present: normal turgor - Musculoskeletal Musculoskeletal: Present: gait normal - Psychiatric Psychiatric: Present: A&O x's 3, appropriate affect, intact judgment & insight - Additional findings Additional findings: Breast Exam: BRA: 36B Inspection: Bilateral grade 2 ptosis Palpation: Right breast: Multi positional exam no dominant masses or nodules of concern Right axilla: No adenopathy of concern Left breast: Multi positional exam no dominant masses or nodules of concern Left axilla: No adenopathy of concern Assessment and Plan Assessment: Impression: MRI 07-11-24 reviewed and Discussed personally with Dr. Lomas from radiology; bilateral enhancing foci BIRAD 2 stero biopsy 05-27-24 bilateral intraductal papillomas Plan: Chemoprophylaxis/appointment with medical oncology Alternating 6-month mammogram/MRI Close surveillance If any concerns needle localization excision of intraductal papillomas which are known Latasha is aware that she has MRI changes diffusely throughout both breast and bilateral intraductal papillomas. She is aware that this increases her risk for development of breast cancer and at this time we are going to do close surveillance. CC: Dr. Tipton Additional CC's: Salvador Tipton
== END ==
LOC: WWCWWP 08:32
PROVIDERS: ATTEND Surgery
DX: D24.1 Benign neoplasm of right breast (principal); D24.2 Benign neoplasm of left breast; R92.8 Other abnormal and inconclusive findings on diagnostic imaging of breast; R92.0 Mammographic microcalcification found on diagnostic imaging of breast; Z87.891 Personal history of nicotine dependence; Z88.1 Allergy status to other antibiotic agents; Z88.2 Allergy status to sulfonamides

== ENCOUNTER → 2024-08-18 | Outpatient (CLI) | payer BC ==
--- NOTE | 2024-08-18 15:16 | P.PN ---
Subjective Progress Note Date: 08/18/24 Principal diagnosis: bilateral intraductal papillomas Subjective Progress Note Date: 08-18-23 Principal diagnosis: intraductal papilloma bilateral breast Bilateral mammographic abnormality of microcalcifications Requesting physician: Salvador Tipton History of present illness: Bhargavi is a 43 year old female seen in consult for Dr. Tipton on 05-27-24 with bilateral abnormal mammograms. She underwent bilateral screening mammography on 04-25-2024 which led to bilateral diagnostic mammograms on 05-06-2024. A lesion of concern was seen in the right breast and a lesion of concern was seen in the left breast only on the CC projection. Stereotactic core biopsies of both lesions were recommended. That in the right was at the posterior nipple line at approximately the 3 o'clock position. The patient has undergone a prior left breast ultrasound guided biopsy which then led to a an open biopsy in approximately 2016 which was benign. She was not complaining of any palpable masses. She was hospitalized in January 2024 with stomach pain, bacterial colitis bilateral stero biopsy on 05-27-24 bilateral intraductal papillomas MRI 07-11-24 BIRAD 2 personally discussed and reviewed with Dr. Lomas At this time she is complaining of some fullness in her left breast in the lateral aspect of the breast, it has changed since her last appointment on 07-28-24 she also complains of shooting pain in that breast at that site She has an appointment with medical oncology for chemoprophylaxis on September 13, 2024 Caffiene: 1 1/2 cup coffee/day nicotine: none stopped in January 2024 used to smoke 1 1/2 PPD for 15 years chocolate: one time a month Hormonal History: menarche: 12 A1 breast fed: yes, age at first : 23 periods regular: LMP about 3 weeks ago BCP: 8 years hormones: none Surgical History: gallbladder benign tumor in neck lump in her left breast Medical History: type 1 diabetic 12 years Family History: father: colon cancer paternal grandfather: cancer ? type paternal great uncle: colon, lung, and skin cancer Social History: nicotine: none alcohol: occasional drugs: none Review of Systems - Constitutional Reports sweats - EENT Eyes: denies blurred vision Ears: deny: decreased hearing Ears, nose, mouth and throat: Denies dysphagia - Breasts bilateral: as per HPI - Cardiovascular Denies chest pain, Denies shortness of breath - Respiratory Denies cough - Gastrointestinal Reports as per HPI - Genitourinary Genitourinary: Denies dysuria, Denies hematuria Menstruation: Reports period normal - Musculoskeletal Reports as per HPI - Integumentary Denies rash, Denies unusual bruising - Neurological Denies headaches, Denies syncope - Psychiatric Reports as per HPI - Endocrine Reports as per HPI - Hematologic/Lymphatic Denies easy bleeding, Denies easy bruising - Allergic/Immunologic Reports as per HPI 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, ovarian cyst History of Any Multi-Drug Resistant Organisms: MRSA Year Discovered:: 08/14/17 MDRO Source:: face Past Surgical History: Cholecystectomy Additional Past Surgical History / Comment(s): mass removed left breast and left neck - all benign Past Anesthesia/Blood Transfusion Reactions: No Reported Reaction Past Psychological History: No Psychological Hx Reported Additional Psychological History / Comment(s): Single and has 2 children 10 and 13 who she cares for. Works at a [employer] used to work in a [employer]. No experience. No international travel. No animal exposures. Children without evidence of skin lesions. Positive tobacco use but no significant alcohol use or recreational drug use. Smoking Status: Former smoker Past Alcohol Use History: Occasional Additional Past Alcohol Use History / Comment(s): started smoking age 17 smokes 3/4 ppd Past Drug Use History: None Reported - Past Family History Father Family Medical History: Cancer Additional Family Medical History / Comment(s): colon cancer Mother Family Medical History: No Reported History Medications and Allergies Home Medications Medication Instructions Recorded Confirmed Type Multivitamins, Thera [Multivitamin 1 tab PO DAILY 01/19/17 05/27/24 History (formulary)] Insulin Aspart (For Pump) [NovoLOG 0.01 unit SQ-PUMP CONTINUOUS 02/06/24 05/27/24 History (For Pump)] Allergies Allergy/AdvReac Type Severity Reaction Status Date / Time doxycycline Allergy Rash/Hives Verified 05/27/24 07:55 Sulfa (Sulfonamide Allergy Rash/Hives Verified 05/27/24 07:55 Antibiotics) Objective - Constitutional General appearance: Present: cooperative - EENT Eyes: Present: EOMI ENT: Present: hearing grossly normal - Neck Neck: Present: normal ROM - Respiratory Respiratory: bilateral: CTA - Cardiovascular Rhythm: regular Heart sounds: normal: S1, S2 - Integumentary Integumentary: Present: normal turgor - Musculoskeletal Musculoskeletal: Present: gait normal - Psychiatric Psychiatric: Present: A&O x's 3, appropriate affect, intact judgment & insight - Additional findings Additional findings: Breast Exam: BRA: 36B Inspection: Bilateral grade 2 ptosis Palpation: Right breast: Multi positional exam no dominant masses or nodules of concern Right axilla: No adenopathy of concern Left breast: Multi positional exam no dominant masses or nodules of concern; time she brings to my attention some increased nodularity near the scar which is believed to be most likely fibrocystic change and changes related to the prior biopsy Left axilla: No adenopathy of concern Assessment and Plan Assessment: Impression: MRI 07-11-24 reviewed and Discussed personally with Dr. Lomas from radiology on her last visit 07-28-24; bilateral enhancing foci BIRAD 2 stero biopsy 05-27-24 bilateral intraductal papillomas Breast increased tenderness upper outer quadrant breast, increased nodularity as per the patient however on examination nothing discrete which would warrant an interventional biopsy at this time Plan: Chemoprophylaxis/appointment with medical oncology Alternating 6-month mammogram/MRI Close surveillance If any concerns needle localization excision of intraductal papillomas which are known At this time the patient is going to be seen by medical oncology for possible chemoprophylaxis; this may also help with the breast tenderness She is going to follow-up 2 months after she starts the chemoprophylaxis for repeat examination If the tenderness or nodularity persisted and she is concerned she will follow- up sooner She was concerned that the changes she is feeling are the marker placed at the time of the biopsy or something of concern. I do not believe that there is anything palpable on today's exam which would warrant an interventional biopsy. We have discussed needle localization and excision of at least the bilateral intraductal papillomas which if able to be avoided she would like to avoid surgery Alternating mammogram and MRI of the breast every 6 months her next mammogram will be in 6 months bilateral with an appointment at that time If patient Notes anything of concern she will follow-up sooner Latasha is aware that she has MRI changes diffusely throughout both breast and bilateral intraductal papillomas. She is aware that this increases her risk for development of breast cancer and at this time we are going to do close surveillance. She will most likely try the chemoprophylaxis, I would like to see her 2 months after she starts the chemoprophylaxis. If the nodularity and sent tenderness in the breast persist then we will consider other options. CC: Dr. Tipton
[2024-08-18 15:20] VITALS: BP 132/82; PULSE 68; RESP 16; TEMP 98.4
== END ==
LOC: WWCWWP 13:58
PROVIDERS: ATTEND Surgery
DX: D05.12 Intraductal carcinoma in situ of left breast (principal); D05.11 Intraductal carcinoma in situ of right breast; N63.11 Unspecified lump in the right breast, upper outer quadrant; N63.12 Unspecified lump in the right breast, upper inner quadrant; R92.8 Other abnormal and inconclusive findings on diagnostic imaging of breast; F17.200 Nicotine dependence, unspecified, uncomplicated; Z88.2 Allergy status to sulfonamides; Z88.8 Allergy status to other drugs, medicaments and biological substances